=== PATIENT | male | born 1955 | race Hispanic/Latino ===

== ENCOUNTER 2019-01-24 11:09 | Observation (INO) | payer BC ==
[~2019-01-24] VITALS: Ht 177.8 cm; Wt 89.2 kg
--- OUTSIDE RECORDS SUMMARY | 2019-01-24 11:12 | XMS REPORT | Continuity of Care Document ---
Author Author [facility] Interface Address Unknown Phone Unavailable Problems Problem Status Onset Date Classification Date Reported Comments Source SQUAMOUS CELL CARCINOMA Active 08/12/2017 [facility] C44.9 - OTHER AND UNSP MALIGNANT NEOPL Active 08/10/2017 [facility] [place] Atrial fibrillation Active Problem 09/13/2017 [facility] CHF (<span ID="[id number]">Confirmed</span>) Active Problem 09/13/2017 [facility] Diabetes Resolved Problem 09/13/2017 [facility] Dilated cardiomyopathy Resolved Problem 09/13/2017 [facility] Hypertension Active Problem 09/13/2017 [facility] Lupus Active Problem 09/13/2017 [facility] 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 [facility] Neuropathy Active Problem 09/13/2017 [facility] Medications Medication Details Route Status Patient Instructions Ordering Provider Order Date Source tramadol hydrochloride 50 MG Oral Tablet 50 mg=1 tab, PO, Q4H, PRN Pain Score 4-6, X 7 day, # 50 tab, 0 Refill(s) Active 09/10/2017 [facility] Amoxicillin 875 MG / Clavulanate 125 MG Oral Tablet [Augmentin 875-mg] 1 tab, PO, Q12H, X 10 day, # 20 tab, 0 Refill(s) Active 09/10/2017 [facility] Spironolactone 25 mg, 1 tab, Route: PO, Drug form: TAB, Daily, Dosing Weight 90.909, kg, Start date: 09/10/17 9:00:00 BASKET PATCHER, Duration: 30 day, Stop date: 10/09/17 9:00:00 CSTNotes: (Same As: Aldactone) Inactive 09/10/2017 [facility] Lisinopril 10 mg, 1 tab, Route: PO, Drug form: TAB, Daily, Dosing Weight 90.909, kg, Start date: 09/10/17 9:00:00 BASKET PATCHER, Duration: 30 day, Stop date: 10/09/17 9:00:00 CSTNotes: (Same as: Prinivil, Zestril) Inactive 09/10/2017 [facility] Hydroxychloroquine Sulfate 200 MG Oral Tablet 200 mg, 1 tab, Route: PO, Drug form: TAB, Daily, Dosing Weight 90.909, kg, Start date: 09/10/17 9:00:00 BASKET PATCHER, Duration: 30 day, Stop date: 10/09/17 9:00:00 CSTNotes: (Same as: Plaquenil) Hydroxychloroquine sulfate 200 eh=549 mg hydroxychloroquine base. If treating malaria, verify dose as salt vs. base per CDC guideline Inactive 09/10/2017 [facility] Furosemide 40 mg, 1 tab, Route: PO, Drug form: TAB, Daily, Dosing Weight 90.909, kg, Start date: 09/10/17 9:00:00 BASKET PATCHER, Duration: 30 day, Stop date: 10/09/17 9:00:00 CSTNotes: (Same as: Lasix) May cause GI upset. Give with food or milk. Inactive 09/10/2017 [facility] Enoxaparin 40 mg, 0.4 mL, Route: SUB-Q, Drug form: INJ, [id number], Dosing Weight 90.909, kg, Start date: 09/10/17 3:05:00 BASKET PATCHER, Stop date: 10/09/17 3:05:00 CSTNotes: (Same as: Lovenox) Inactive 09/10/2017 [facility] Insulin Lispro 4 unit, 0.04 mL, Route: SUB-Q, Drug form: SOLN, Bedtime, Dosing Weight 90.909, kg, PRN Blood Glucose Results, Start date: 09/09/17 21:19:00 BASKET PATCHER, Duration: 30 day, Stop date: 10/09/17 21:18:00 CSTNotes: (Same as: Humalog ) Roll in palms of hands gently; Do not shake `vigorously. "Single Patient Use Only " WASTE: F/P - Black; E - Municipal Trash Bin Stable for 28 days at room temperature. Expires in days from Date No Longer Active 09/10/2017 [facility] Dextrose 50% Syringe 12.5 gm, 25 mL, Route: IVP, Drug Form: INJ, Dosing Weight 90.909, kg, PRN, PRN Blood Glucose Results, Start date: 09/09/17 21:19:00 BASKET PATCHER, Duration: 30 day, Stop date: 10/09/17 21:18:00 BASKET PATCHER No Longer Active 09/10/2017 [facility] Glucagon 1 mg, Route: IM, Drug form: PDR/INJ, PRN, Dosing Weight 90.909, kg, PRN Blood Glucose Results, Start date: 09/09/17 21:19:00 BASKET PATCHER, Duration: 30 day, Stop date: 10/09/17 21:18:00 BASKET PATCHER No Longer Active 09/10/2017 [facility] Amoxicillin 875 MG / Clavulanate 125 MG Oral Tablet [Augmentin 875-mg] 1 tab, Route: PO, Drug Form: TAB, Dosing Weight 90.909, kg, Q12H, Start date: 09/09/17 21:00:00 BASKET PATCHER, Duration: 5 day, Stop date: 09/14/17 9:00:00 CSTNotes: With food. (Same as: Augmentin 875) No Longer Active 09/10/2017 [facility] Metformin 500 mg, 1 tab, Route: PO, Drug form: TAB, BID, Dosing Weight 90.909, kg, Start date: 09/09/17 17:00:00 BASKET PATCHER, Duration: 30 day, Stop date: 10/09/17 9:00:00 CSTNotes: (Same as: Glucophage) Take with meal No Longer Active 09/09/2017 [facility] metoprolol tartrate 100 mg, 1 tab, Route: PO, Drug form: TAB, BID, Dosing Weight 90.909, kg, Start date: 09/09/17 17:00:00 BASKET PATCHER, Duration: 30 day, Stop date: 10/09/17 9:00:00 CSTNotes: (Same as: Lopressor) No Longer Active 09/09/2017 [facility] Insulin regular 6 unit, 0.06 mL, Route: SUB-Q, Drug form: SOLN, TID-Before Meals, Dosing Weight 90.909, kg, PRN Blood Glucose Results, Start date: 09/09/17 15:12:00 BASKET PATCHER, Duration: 30 day, Stop date: 10/09/17 15:11:0 0 CSTNotes: (Same as: Humulin R) Roll in palms of hands gently; Do not shake vigorously. "single patient use only" (Restricted to patients requiring a dose > 60 units) WASTE: F/P - Black; E - Municipal Trash Bin Stable for 28 days at room temperature Expires in days from Date No Longer Active 09/09/2017 [facility] Glucagon 1 mg, Route: IM, Drug form: PDR/INJ, PRN, Dosing Weight 90.909, kg, PRN Blood Glucose Results, Start date: 09/09/17 15:12:00 BASKET PATCHER, Duration: 30 day, Stop date: 10/09/17 15:11:00 BASKET PATCHER Inactive 09/09/2017 [facility] Dextrose 50% Syringe 25 gm, 50 mL, Route: IVP, Drug Form: INJ, Dosing Weight 90.909, kg, PRN, PRN Blood Glucose Results, Start date: 09/09/17 15:12:00 BASKET PATCHER, Duration: 30 day, Stop date: 10/09/17 15:11:00 BASKET PATCHER Inactive 09/09/2017 [facility] Acetaminophen 650 mg, 2 tab, Route: PO, Drug form: TAB, Q6H, Dosing Weight 90.909, kg, PRN Pain Score 1-3, Start date: 09/09/17 15:05:00 BASKET PATCHER, Duration: 30 day, Stop date: 10/09/17 15:04:00 CSTNotes: Do not exceed 4 gm/day. (Same as: Tylenol) No Longer Active 09/09/2017 [facility] tramadol hydrochloride 50 MG Oral Tablet 50 mg, 1 tab, Route: PO, Drug form: TAB, Q4H, Dosing Weight 90.909, kg, PRN Pain Score 4-6, Start date: 09/09/17 15:05:00 BASKET PATCHER, Duration: 30 day, Stop date: 10/09/17 15:04:00 CSTNotes: Not to exceed 400mg/day. (Same As: Ultram) No Longer Active 09/09/2017 [facility] famotidine (ANES) Route: IV, Drug form: INJ, ONCE, Stop date: 09/09/17 12:23:00 BASKET PATCHER Inactive 09/09/2017 [facility] phenylephrine (ANES) Route: IV, Drug form: INJ, ONCE, Stop date: 09/09/17 12:23:00 BASKET PATCHER Inactive 09/09/2017 [facility] dexamethasone (ANES) Route: IV, Drug form: INJ, ONCE, Stop date: 09/09/17 12:03:00 BASKET PATCHER Inactive 09/09/2017 [facility] propofol (ANES) Route: IV, Drug form: INJ, ONCE, Stop date: 09/09/17 11:58:00 BASKET PATCHER Inactive 09/09/2017 [facility] succinylcholine (ANES) Route: IV, Drug form: INJ, ONCE, Stop date: 09/09/17 11:58:00 BASKET PATCHER Inactive 09/09/2017 [facility] lidocaine ([facility]) Route: IV, Drug form: INJ, ONCE, Stop date: 09/09/17 11:58:00 BASKET PATCHER Inactive 09/09/2017 [facility] midazolam (ANES) Route: IV, Drug form: SOLN, ONCE, Stop date: 09/09/17 11:58:00 BASKET PATCHER Inactive 09/09/2017 [facility] acetaminophen ([facility]) Route: IV, Drug form: INJ, ONCE, Stop date: 09/09/17 11:58:00 BASKET PATCHER Inactive 09/09/2017 [facility] fentaNYL ([facility]) Route: IV, Drug form: INJ, ONCE, Stop date: 09/09/17 11:58:00 BASKET PATCHER Inactive 09/09/2017 [facility] Hydromorphone 0.5 mg, 0.25 mL, Route: IVP, Drug form: INJ, Q5Min, Dosing Weight 90.909, kg, PRN Pain Score 7-10, Start date: 09/09/17 11:54:00 BASKET PATCHER, Duration: 4 doses or times, Stop date: Limited # of timesNotes: S radha as Dilaudid Inactive 09/09/2017 [facility] Flumazenil 0.2 mg, 2 mL, Route: IVP, Drug form: INJ, PRN, Dosing Weight 90.909, kg, PRN Benzodiazepine Reversal, Initial dose, Start date: 09/09/17 11:54:00 BASKET PATCHER, Duration: 1 day, Stop date: 09/10/17 11:53:00 CS TNotes: (Same as: Romazicon) Inactive 09/09/2017 [facility] Naloxone 0.4 mg, 1 mL, Route: IVP, Drug form: INJ, Q2MIN, Dosing Weight 90.909, kg, PRN Narcotic Reversal, Start date: 09/09/17 11:54:00 BASKET PATCHER, Duration: 8 doses or times, Stop date: Limited # of timesNotes: Same as Narcan Inactive 09/09/2017 [facility] Meperidine 12.5 mg, 0.25 mL, Route: IVP, Drug form: INJ, Q30Min, Dosing Weight 90.909, kg, PRN Other -See Comment, For shivering, Start date: 09/09/17 11:54:00 BASKET PATCHER, Duration: 2 doses or times, Stop date: Limited # of timesNotes: (Same as: Demerol) "Use Precaution in Elderly, Seizure disorders, and Renal impairment" Inactive 09/09/2017 [facility] Promethazine 6.25 mg, 0.25 mL, Route: IVPB, Drug form: INJ, ONCE, Dosing Weight 90.909, kg, PRN Nausea & Vomiting, Start date: 09/09/17 11:54:00 CSTNotes: Do not give IV push. (Same as: Phenergan) Inactive 09/09/2017 [facility] Oxycodone 5 mg, 1 tab, Route: PO, Drug form: TAB, Q4H, Dosing Weight 90.909, kg, PRN Pain Score 4-6, Start date: 09/09/17 11:54:00 BASKET PATCHER, Duration: 30 day, Stop date: 10/09/17 11:53:00 CSTNotes: (Same as: Roxicodone) Inactive 09/09/2017 [facility] Hydralazine 10 mg, 0.5 mL, Route: IVP, Drug form: INJ, Q20Min, Dosing Weight 90.909, kg, PRN Elevated BP, Start date: 09/09/17 11:54:00 BASKET PATCHER, Duration: 2 doses or times, Stop date: Limited # of timesNotes: (Same as: Apresoline) Push over 5 minutes Inactive 09/09/2017 [facility] Labetalol 10 mg, 2 mL, Route: IVP, Drug form: INJ, Q5Min, Dosing Weight 90.909, kg, PRN Elevated BP, Start date: 09/09/17 11:54:00 BASKET PATCHER, Duration: 5 doses or times, Stop date: Limited # of times Inactive 09/09/2017 [facility] ceFAZolin (ANES) Route: IV, Drug form: INJ, ONCE, Stop date: 09/09/17 11:53:00 BASKET PATCHER Inactive 09/09/2017 [facility] Sodium Chloride 0.9% IV (ANES) 100 mL + SUFentanil (ANES) 100 microgram Route: IV, Drug form: INJ, Start date: 09/09/17 11:20:00 BASKET PATCHER, Stop date: 09/09/17 12:20:00 BASKET PATCHER Inactive 09/09/2017 [facility] Lactated Ringers Injection IV (ANES) 1000 mL Route: IV, Total Volume: 1,000, Start date: 09/09/17 10:41:00 BASKET PATCHER, Stop date: 09/09/17 11:41:00 BASKET PATCHER Inactive 09/09/2017 [facility] Hydroxychloroquine Sulfate 200 MG Oral Tablet [Plaquenil] 200 mg=1 tab, PO, Daily, 0 Refill(s) Active 09/09/2017 [facility] ceFAZolin + sterile water 20 mL 2 gm, Route: IV, PRE OP, Start date: 09/09/17 2:00:00 BASKET PATCHER, Duration: 1 day, Stop date: 09/10/17 1:59:00 BASKET PATCHER, ABX Indication: Surgical ProphylaxisNotes: (Same As: Ancef Kefzol) MEDICATION WASTE Product Size: 1000 mg Product Wasted: ___ mg Inactive 09/09/2017 [facility] Furosemide 40 mg, PO, Daily Active 09/06/2017 [facility] metoprolol tartrate 100 mg, PO, BID Active 09/06/2017 [facility] Metformin 500 mg, PO, BID Active 09/06/2017 [facility] Lisinopril 10 mg, PO, Daily Active 09/06/2017 [facility] Spironolactone 25 mg=2 tab, PO, Daily Active 09/06/2017 [facility] Xarelto 20 mg, PO, QPM Active 09/06/2017 [facility] Allergies, Adverse Reactions, Alerts Substance Category Reaction Severity Reaction type Status Date Reported Comments Source Immunizations Immunization Date Given Site Status Last Updated Comments Source Results Order Name Results Value Reference Range Date Interpretation Comments Source CHEM PANEL eGFR 92 mL/min/1.73m2 09/10/2017 Result Comment: The eGFR is calculated using the CKD-EPI formula. In most young, healthy individuals the eGFR will be >90 mL/min/1.73m2. The eGFR declines with age. An eGFR of 60-89 may be normal in some populations, particularly the elderly, for whom the CKD-EPI formula has not been extensively validated. Use of the eGFR is not recommended in the following populations: Individuals with unstable creatinine concentrations, including patients and those with serious co-morbid conditions. Patients with extremes in muscle mass or diet. The data above are obtained from the National Kidney Disease Education Program (NKDEP) which additionally recommends that when the eGFR is used in patients with extremes of body mass index for purposes of drug dosing, the eGFR should be multiplied by the estimated BMI. [facility] CHEM PANEL Calcium Lvl 8.6 mg/dL 8.5 - 10.5 09/10/2017 [facility] CHEM PANEL CO2 22 meq/L 24 - 32 09/10/2017 [facility] CHEM PANEL Chloride Lvl 100 meq/L 95 - 109 09/10/2017 [facility] CHEM PANEL Potassium Lvl 4.4 meq/L 3.5 - 5.1 09/10/2017 [facility] CHEM PANEL Sodium Lvl 132 meq/L 135 - 145 09/10/2017 [facility] CHEM PANEL BUN 18 mg/dL 7 - 22 09/10/2017 [facility] CHEM PANEL Creatinine Lvl 0.88 mg/dL 0.50 - 1.40 09/10/2017 [facility] CHEM PANEL Glucose Lvl 270 mg/dL 70 - 99 09/10/2017 [facility] CHEM PANEL AGAP 14.4 meq/L 10.0 - 20.0 09/10/2017 [facility] HEMATOLOGY WBC 7.1 K/CMM 3.7 - 10.4 09/10/2017 [facility] HEMATOLOGY Platelet 120 K/CMM 133 - 450 09/10/2017 [facility] HEMATOLOGY MPV 8.2 fL 7.4 - 10.4 09/10/2017 [facility] HEMATOLOGY MCHC 34.8 g/dL 32.0 - 36.0 09/10/2017 [facility] HEMATOLOGY RDW 12.4 % 11.5 - 14.5 09/10/2017 [facility] HEMATOLOGY Hct 41.1 % 42.0 - 54.0 09/10/2017 [facility] HEMATOLOGY Hgb 14.3 g/dL 14.0 - 18.0 09/10/2017 [facility] HEMATOLOGY RBC 4.45 M/CMM 4.70 - 6.10 09/10/2017 [facility] HEMATOLOGY MCV 92.3 fL 80.0 - 94.0 09/10/2017 [facility] HEMATOLOGY MCH 32.1 pg 27.0 - 31.0 09/10/2017 [facility] HEMATOLOGY Segs 80.4 % 45.0 - 75.0 09/10/2017 [facility] HEMATOLOGY Monocytes # 0.5 K/CMM 0.0 - 0.8 09/10/2017 [facility] HEMATOLOGY Lymphocytes # 0.8 K/CMM 1.0 - 5.5 09/10/2017 [facility] HEMATOLOGY Segs-Bands # 5.7 K/CMM 1.5 - 8.1 09/10/2017 [facility] HEMATOLOGY Basophils 0.5 % 0.0 - 1.0 09/10/2017 [facility] HEMATOLOGY Eosinophils 0.3 % 0.0 - 4.0 09/10/2017 [facility] HEMATOLOGY Lymphocytes 11.3 % 20.0 - 40.0 09/10/2017 [facility] HEMATOLOGY Monocytes 7.5 % 2.0 - 12.0 09/10/2017 [facility] BLOOD BANK RESULTS Antibody Scrn Negative (09/09/17 10:00 AM) 09/09/2017 [facility] BLOOD BANK RESULTS ABO/Rh O POS 09/09/2017 [facility] ELECTROLYTES AGAP 12.8 meq/L 10.0 - 20.0 09/06/2017 [facility] ELECTROLYTES eGFR 99 mL/min/1.73m2 09/06/2017 Result Comment: The eGFR is calculated using the CKD-EPI formula. In most young, healthy individuals the eGFR will be >90 mL/min/1.73m2. The eGFR declines with age. An eGFR of 60-89 may be normal in some populations, particularly the elderly, for whom the CKD-EPI formula has not been extensively validated. Use of the eGFR is not recommended in the following populations: Individuals with unstable creatinine concentrations, including patients and those with serious co-morbid conditions. Patients with extremes in muscle mass or diet. The data above are obtained from the National Kidney Disease Education Program (NKDEP) which additionally recommends that when the eGFR is used in patients with extremes of body mass index for purposes of drug dosing, the eGFR should be multiplied by the estimated BMI. [facility] ELECTROLYTES Glucose Lvl 158 mg/dL 70 - 99 09/06/2017 [facility] ELECTROLYTES BUN 20 mg/dL 7 - 22 09/06/2017 [facility] ELECTROLYTES Sodium Lvl 134 meq/L 135 - 145 09/06/2017 [facility] ELECTROLYTES Creatinine Lvl 0.73 mg/dL 0.50 - 1.40 09/06/2017 [facility] ELECTROLYTES Potassium Lvl 4.8 meq/L 3.5 - 5.1 09/06/2017 [facility] ELECTROLYTES Calcium Lvl 10.7 mg/dL 8.5 - 10.5 09/06/2017 [facility] ELECTROLYTES Chloride Lvl 96 meq/L 95 - 109 09/06/2017 [facility] ELECTROLYTES CO2 30 meq/L 24 - 32 09/06/2017 [facility] HEMATOLOGY Basophils # 0.1 K/CMM 0.0 - 0.2 09/06/2017 [facility] HEMATOLOGY Segs 69.3 % 45.0 - 75.0 09/06/2017 [facility] HEMATOLOGY Lymphocytes 20.7 % 20.0 - 40.0 09/06/2017 [facility] HEMATOLOGY Eosinophils 0.9 % 0.0 - 4.0 09/06/2017 [facility] HEMATOLOGY Monocytes 8.0 % 2.0 - 12.0 09/06/2017 [facility] HEMATOLOGY Basophils 1.1 % 0.0 - 1.0 09/06/2017 [facility] HEMATOLOGY Lymphocytes # 1.1 K/CMM 1.0 - 5.5 09/06/2017 [facility] HEMATOLOGY Segs-Bands # 3.8 K/CMM 1.5 - 8.1 09/06/2017 [facility] HEMATOLOGY Monocytes # 0.4 K/CMM 0.0 - 0.8 09/06/2017 [facility] HEMATOLOGY Hgb 15.3 g/dL 14.0 - 18.0 09/06/2017 [facility] HEMATOLOGY Hct 44.3 % 42.0 - 54.0 09/06/2017 [facility] HEMATOLOGY MCV 92.2 fL 80.0 - 94.0 09/06/2017 [facility] HEMATOLOGY MCH 31.9 pg 27.0 - 31.0 09/06/2017 [facility] HEMATOLOGY MCHC 34.7 g/dL 32.0 - 36.0 09/06/2017 [facility] HEMATOLOGY RDW 12.3 % 11.5 - 14.5 09/06/2017 [facility] HEMATOLOGY MPV 9.1 fL 7.4 - 10.4 09/06/2017 [facility] HEMATOLOGY Platelet 142 K/CMM 133 - 450 09/06/2017 [facility] HEMATOLOGY RBC 4.80 M/CMM 4.70 - 6.10 09/06/2017 [facility] HEMATOLOGY WBC 5.5 K/CMM 3.7 - 10.4 09/06/2017 [facility] SPECIAL CHEMISTRY Hgb A1C 9.2 % <=5.6 % 09/06/2017 [facility] Neck soft tissue w/wo contrast CT Neck soft tissue w/wo contrast CT Neck soft tissue w/wo contrast CT 08/10/2017 9:51 AM BASKET PATCHER . CLINICAL INDICATION: - C44.90 Unspecified malignant neoplasm of skin, unspecified; skin cancer of ear; ; TECHNIQUE: Thin section axial images are obtained from aortic arch to the posterior cranial fossa. Axial, sagittal, coronal images are interpreted. This exam was performed according to our departmental dose-optimization protocol, which includes automated exposure control, adjustment of the mA and/or kV according to patient size and/or use of iterative reconstruction technique. Contrast : 100 mL IV contrast was given. DLP- 1276 mGy-cm COMPARISON: No prior. FINDINGS: Aerodigestive tract: No mucosal thickening, abnormal enhancement, or asymmetry. The submucosal fat planes are maintained. Lymph nodes: No lymphadenopathy. Salivary glands: See below. Thyroid: Within normal limits. Vascular structures: Significant atherosclerotic calcifications are seen in the bilateral carotid arteries. Paranasal sinuses: Clear. The mastoids are clear. Cranial posterior fossa: Within normal limits. Superficial tissues: Diffuse cutaneous and subcutaneous thickening is seen at the pinna and anterior periauricular region. Ill-defined margin with the superficial lobe of the right parotid gland is present. Regional skeleton: Osteoporosis. Severe multilevel cervical spine degenerative changes. C2-C3 moderate facet arthrosis and grade 1 degenerative anterolisthesis. Lung apices: Within normal limits. IMPRESSION: 1. Diffuse right auricular and periauricular soft tissues compatible with neoplasm and/or recent radiotherapy. Involvement of the right parotid gland superficial lobe may be present. 2. No neck adenopathy. 08/10/2017 - - Read by: Gareth Patino MD Dictated Date/time: 08/10/17 16:28 Electronically Signed by: Gareth Patino MD 08/10/17 16:38 FINAL REPORT [facility] Vital Signs Vital Sign Value Date Comments Source Respitory Rate 18 09/10/2017 [facility] Systolic (mm Hg) 112 09/10/2017 [facility] Diastolic (mm Hg) 73 09/10/2017 [facility] Temperature Oral (F) 97.6 F 09/10/2017 [facility] Heart Rate 70 09/10/2017 [facility] Temperature Oral (F) 96.6 F 09/10/2017 [facility] Systolic (mm Hg) 109 09/10/2017 [facility] Diastolic (mm Hg) 69 09/10/2017 [facility] Respitory Rate 18 09/10/2017 [facility] Heart Rate 70 09/10/2017 [facility] Temperature Oral (F) 96.5 F 09/10/2017 [facility] Heart Rate 74 09/10/2017 [facility] Systolic (mm Hg) 108 09/10/2017 [facility] Diastolic (mm Hg) 75 09/10/2017 [facility] Respitory Rate 18 09/10/2017 [facility] Height 177.8 cm 09/09/2017 [facility] Weight 90.909 09/09/2017 [facility] BMI Calculated 28.76 09/09/2017 [facility] BMI Calculated 28.47 09/06/2017 [facility] Height 177.8 cm 09/06/2017 [facility] Weight 90 09/06/2017 [facility] Encounters Location Location Details Encounter Type Encounter Number Reason For Visit Attending Provider ADM Date DC Date Status Source [facility] [place] [facility] [id number] Woodrow Adkins 08/10/2017 08/11/2017 [facility] Bedded Outpatient [id number] Woodrow Adkins 09/09/2017 09/10/2017 [facility] Procedures Procedure Code Date Perfomer Comments Source Electrical cardioversion<sup>1</sup> [id number] x2 [facility] Implantation of cardiac pacemaker [id number] [facility]
--- OUTSIDE RECORDS SUMMARY | 2019-01-24 11:12 | XMS REPORT | Clinical Summary ---
Author Author JANETTE [facility] Address Unknown Phone Unavailable Care Team Providers Care Dental Office Assistant Name Role Phone Randy Lund PCP Allergies No Known Allergies Medications End Date Status Medication Sig Dispensed Refills Start Date Active spironolactone Take 25 mg by 0 (ALDACTONE) 25 MG tablet mouth daily. Active rivaroxaban (XARELTO) 20 Take 20 mg by 0 mg Tab tablet mouth daily with dinner. Active aspirin 81 MG chewable Take 81 mg by 0 tablet mouth daily. Active sacubitril-valsartan Take 1 tablet 0 (ENTRESTO) 49-51 mg Tab by mouth 2 (two) times daily. Active metFORMIN (GLUCOPHAGE) Take 500 mg 0 500 MG tablet by mouth 2 (two) times daily with breakfast and dinner. Active hydroxychloroquine Take 200 mg 0 (PLAQUENIL) 200 mg tablet by mouth 2 9 (two) times daily . Active metoprolol (TOPROL-XL) Take 100 mg 0 100 MG 24 hr tablet by mouth 2 9 (two) times daily . Active furosemide (LASIX) 40 MG Take 40 mg by 0 tablet mouth 2 (two) times daily. Active calcium carbonate-vitamin Take 1 tablet 0 D3 (OSCAL-D) 500 by mouth mg(1,250mg) -200 unit per daily. tablet Active magnesium oxide 400 mg Take 400 mg 0 magnesium Tab by mouth daily . Active sacubitril-valsartan Take 1 tablet 0 (ENTRESTO) 97-103 mg Tab by mouth 2 (two) times daily. 12/27/2018 Discontinued furosemide (LASIX) 40 MG Take 40 mg by 0 tablet mouth 2 (two) times daily. 12/27/2018 Discontinued magnesium oxide (MAG-OX) Take 400 mg 0 400 mg (241.3 mg by mouth magnesium) tablet daily. 12/27/2018 Discontinued calcium-vitamin D 250-100 Take 1 tablet 0 mg-unit per tablet by mouth daily. 12/27/2018 Discontinued cyanocobalamin 2000 MCG Take 2,000 0 tablet mcg by mouth daily. Active Problems Problem Noted Date Chronic hepatitis C without hepatic coma 12/27/2018 Last Assessment & Plan: Diagnosed based on labs, positive HCV antibody. He has risk factors for HCV infection. We will check HCV RNA for confirmation. If positive, he will need therapy. No evidence of decompensated cirrhosis clinically. I have advised him to be abstinent from alcohol. Abnormal LFTs 12/27/2018 Last Assessment & Plan: Hepatocellular pattern, mildly elevated, may be related to HCV. However he has risk factors for metabolic syndrome with fatty liver, and significant history of drinking. Screening for endocrine, metabolic and immunity disorder 12/27/2018 Last Assessment & Plan: Serological tests will be completed to determine the presence of immunity to hepatitis A and B. If found susceptible she will be referred to her primary care provider to consider the administration of the appropriate vaccines. Alcoholic cardiomyopathy 12/27/2018 Encounters Care Team Description Date Type Specialty Collette Steen MD 01/04/2019 Orders Only Hepatology Collette Steen MD Chronic hepatitis C without hepatic coma (HCC); Abnormal LFTs; Screening for endocrine, metabolic and immunity disorder; Alcoholic cardiomyopathy (HCC) 12/29/2018 Hospital Radiology Encounter Randy Lund Harris 12/29/2018 Outside Orders Maine Shaw 12/28/2018 Follow-Up Transplant Collette Steen MD Chronic hepatitis C without hepatic coma (HCC); Abnormal LFTs; Screening for endocrine, metabolic and immunity disorder; Alcoholic cardiomyopathy (HCC) 12/27/2018 Office Visit Hepatology Shaan Cassidy 12/21/2018 Abstract Transplant Max Oropeza MD Congestive heart failure, unspecified HF chronicity, unspecified heart failure type (HCC) (Primary Dx) 12/14/2018 Orders Only Lab Shaan Cassidy 12/12/2018 Abstract Transplant Cindy Schwartz RN Results 12/12/2018 Telephone Transplant Cindy Schwartz RN Pre-transplant evaluation for heart transplant (Primary Dx) 12/12/2018 Orders Only Transplant Cindy Schwartz RN 12/12/2018 Abstract Transplant KhanhShaan anderson M 12/05/2018 Abstract Transplant KhanhShaan M 11/29/2018 Abstract Transplant Wes Ovalle MD Allison, Amy, RN Pre-transplant evaluation for heart transplant (Primary Dx); Encounter for pre-transplant evaluation for heart transplant 10/24/2018 Orders Only Transplant Cindy Schwartz RN Encounter for pre-transplant evaluation for heart transplant (Primary Dx) 10/24/2018 Orders Only Transplant Cindy Schwartz RN Encounter for pre-transplant evaluation for heart transplant (Primary Dx) 10/24/2018 Orders Only Transplant Cindy Schwartz RN 10/16/2018 Telephone Transplant Max Oropeza MD Awaiting organ transplant status; Dilated cardiomyopathy (HCC) 10/05/2018 Hospital Cardiology Encounter Max Oropeza MD Awaiting organ transplant status; Dilated cardiomyopathy (HCC) 10/05/2018 Hospital Cardiology Encounter Max Oropeza MD Awaiting organ transplant status; Dilated cardiomyopathy (HCC) 10/05/2018 Hospital Respiratory Therapy Encounter Max rOopeza MD Awaiting organ transplant status; Dilated cardiomyopathy (HCC) 10/05/2018 Hospital Respiratory Therapy Encounter Max Oropeza MD 10/05/2018 Hospital Encounter Max Oropeza MD Awaiting organ transplant status; Dilated cardiomyopathy (HCC) 10/05/2018 Hospital Radiology Encounter Max Oropeza MD Awaiting organ transplant status; Dilated cardiomyopathy (HCC) 10/05/2018 Hospital Radiology Encounter Max Oropeza MD Awaiting organ transplant status; Dilated cardiomyopathy (HCC) 10/05/2018 Hospital Radiology Encounter Kourtney Fontaine 09/25/2018 Documentation Cardiology Max Oropeza MD Awaiting organ transplant status; Dilated cardiomyopathy (HCC) 09/21/2018 Hospital Encounter Max Oropeza MD Awaiting organ transplant status; Dilated cardiomyopathy (HCC) 09/21/2018 Hospital Radiology Encounter Max Oropeza MD Awaiting organ transplant status; Dilated cardiomyopathy (HCC) 09/21/2018 Hospital Radiology Encounter Max Oropeza MD Manson, Melissa J, [facility] Awaiting organ transplant status; Dilated cardiomyopathy (HCC) 09/21/2018 Evaluation Cardiology Shaan Cassidy 09/21/2018 Abstract Transplant Max Oropeza MD 09/21/2018 Outside Orders Cindy Schwartz RN 09/21/2018 Abstract Transplant Kourtney Joseph LCSW 09/21/2018 Social Work Transplant Cindy Schwartz, RN 09/07/2018 Abstract Transplant Cindy Schwartz RN Dilated cardiomyopathy (HCC) (Primary Dx); Awaiting organ transplant status 09/07/2018 Orders Only Transplant Cindy Schwartz RN Heart Transplant Pre-evaluation 09/07/2018 Telephone Transplant Adrienne Yusuf 09/05/2018 Documentation Transplant Adrienne Yusuf 07/27/2018 Documentation Transplant Adrienne Yusuf Insurance (Not a BDCT ) 07/27/2018 Telephone Transplant Bobby Jorgensen 03/29/2018 Abstract Transplant Usama Ramey 03/27/2018 Abstract Transplant Usama Ramey 03/27/2018 Abstract Transplant Max Oropeza MD Left ventricular failure (HCC) 03/21/2018 Hospital Cardiology Encounter Max Oropeza MD Left ventricular failure (HCC) 03/21/2018 Hospital Cardiology Encounter Max Oropeza MD Left ventricular failure (HCC) (Primary Dx) 03/17/2018 Outside Orders Central Scheduling after 01/23/2018 Family History Medical History Relation Name Comments Diabetes Brother Diabetes Father Diabetes Mother Relation Name Status Comments Brother Father Mother Social History Date Tobacco Use Types Packs/Day Years Used Former Smoker Smokeless Tobacco: Never Used Alcohol Use Drinks/Week oz/Week Comments No Alcohol Habits Answer Date Recorded How often do you have a drink containing alcohol? Never 12/27/2018 How many drinks containing alcohol do you have on Not asked a typical day when you are drinking? How often do you have six or more drinks on one Not asked occasion? Sex Assigned at Date Recorded Not on file Industry Job Start Date Occupation Not on file Not on file Not on file Travel End Travel History Travel Start No recent travel history available. Last Filed Vital Signs Time Taken Vital Sign Reading 12/28/2018 1:33 PM CDT Blood Pressure 91/62 12/28/2018 1:33 PM CDT Pulse 72 12/28/2018 1:33 PM CDT Temperature 36.7 C (98.1 F) 12/28/2018 1:33 PM CDT Respiratory Rate 18 12/28/2018 1:33 PM CDT Oxygen Saturation 97% - Inhaled Oxygen - Concentration 12/28/2018 1:33 PM CDT Weight 93.7 kg (206 lb 9.6 oz) 12/28/2018 1:33 PM CDT Height 177.8 cm (5' 10") 12/28/2018 1:33 PM CDT Body Mass Index 29.64 Plan of Treatment Care Team Description Date Type Specialty Collette Steen MD [address] [facility] [address] [place] [address] 02/22/2019 Office Visit Hepatology Procedures Comments Procedure Name Priority Date/Time Associated Diagnosis HEP B SURFACE AB Routine 01/04/2019 10:48 AM CDT HEPATITIS B CORE Routine 01/04/2019 ANTIBODY, TOTAL 10:48 AM CDT HEPATITIS B SURFACE Routine 01/04/2019 ANTIGEN 10:48 AM CDT HEPATITIS A ANTIBODY, Routine 12/29/2018 Abnormal LFTs TOTAL 10:50 AM CDT Screening for endocrine, metabolic and immunity disorder HEREDITARY Routine 12/29/2018 Chronic hepatitis C HEMOCHROMATOSIS DNA 10:49 AM CDT without hepatic coma (HCC) Abnormal LFTs Screening for endocrine, metabolic and immunity disorder Alcoholic cardiomyopathy (HCC) HEPATITIS C PCR, Routine 12/29/2018 Chronic hepatitis C QUANTITATIVE 10:49 AM CDT without hepatic coma (HCC) Abnormal LFTs Screening for endocrine, metabolic and immunity disorder Alcoholic cardiomyopathy (HCC) HEPATITIS C GENOTYPE Routine 12/29/2018 Chronic hepatitis C 10:49 AM CDT without hepatic coma (HCC) Abnormal LFTs Screening for endocrine, metabolic and immunity disorder Alcoholic cardiomyopathy (HCC) HEPATITIS B PCR, Routine 12/29/2018 Chronic hepatitis C QUANTITATIVE 10:49 AM CDT without hepatic coma (HCC) Abnormal LFTs Screening for endocrine, metabolic and immunity disorder Alcoholic cardiomyopathy (HCC) ALPHA FETOPROTEIN (AFP), Routine 12/29/2018 Chronic hepatitis C TUMOR MARKER 10:49 AM CDT without hepatic coma (HCC) Abnormal LFTs Screening for endocrine, metabolic and immunity disorder Alcoholic cardiomyopathy (HCC) PROTHROMBIN TIME/INR Routine 12/29/2018 Chronic hepatitis C 10:49 AM CDT without hepatic coma (HCC) Abnormal LFTs Screening for endocrine, metabolic and immunity disorder Alcoholic cardiomyopathy (HCC) CBC W/PLT COUNT & AUTO Routine 12/29/2018 Chronic hepatitis C DIFFERENTIAL 10:49 AM CDT without hepatic coma (HCC) Abnormal LFTs Screening for endocrine, metabolic and immunity disorder Alcoholic cardiomyopathy (HCC) HEPATIC FUNCTION PANEL Routine 12/29/2018 Chronic hepatitis C 10:49 AM CDT without hepatic coma (HCC) Abnormal LFTs Screening for endocrine, metabolic and immunity disorder Alcoholic cardiomyopathy (HCC) BASIC METABOLIC PANEL (7) Routine 12/29/2018 Chronic hepatitis C 10:49 AM CDT without hepatic coma (HCC) Abnormal LFTs Screening for endocrine, metabolic and immunity disorder Alcoholic cardiomyopathy (HCC) US ABDOMINAL WITH DOPPLER Routine 12/29/2018 Chronic hepatitis C 8:38 AM CDT without hepatic coma (HCC) Abnormal LFTs Screening for endocrine, metabolic and immunity disorder Alcoholic cardiomyopathy (HCC) REPORT OF PROCEDURE - 12/20/2018 ENDOSCOPY SCAN 3:41 PM CDT MISCELLANEOUS LAB ORDER Routine 12/14/2018 Congestive heart failure, 2:07 PM CDT unspecified HF chronicity, unspecified heart failure type (HCC) CREATININE Routine 10/26/2018 Pre-transplant evaluation 11:14 AM AUDIOMETRIST for heart transplant CREATININE CLEARANCE Routine 10/26/2018 Pre-transplant evaluation 10:59 AM AUDIOMETRIST for heart transplant DRUG SCREEN, URINE, Routine 10/24/2018 Pre-transplant evaluation TRANSPLANT 10:10 AM AUDIOMETRIST for heart transplant PULMONARY FUNCTION - SCAN 10/12/2018 2:50 PM AUDIOMETRIST CAROTID DOPPLER BILATERAL Routine 10/05/2018 Awaiting organ transplant 10:39 AM AUDIOMETRIST status Dilated cardiomyopathy (HCC) ARTERIAL DOPPLER LEGS Routine 10/05/2018 Awaiting organ transplant BILATERAL 10:39 AM AUDIOMETRIST status Dilated cardiomyopathy (HCC) CT CHEST WITHOUT IV Routine 10/05/2018 Awaiting organ transplant CONTRAST 8:44 AM AUDIOMETRIST status Dilated cardiomyopathy (HCC) CT BRAIN WITHOUT IV Routine 10/05/2018 Awaiting organ transplant CONTRAST 8:44 AM AUDIOMETRIST status Dilated cardiomyopathy (HCC) CT ABDOMEN WITHOUT IV Routine 10/05/2018 Awaiting organ transplant CONTRAST 8:44 AM AUDIOMETRIST status Dilated cardiomyopathy (HCC) XR DXA BONE DENSITY STUDY Routine 10/05/2018 7:48 AM AUDIOMETRIST TRANSFUSION SERVICE 09/22/2018 REPORT - SCAN 6:05 PM AUDIOMETRIST US RENAL COMPLETE Routine 09/21/2018 Awaiting organ transplant 2:29 PM AUDIOMETRIST status Dilated cardiomyopathy (HCC) XR CHEST 2 VIEWS Routine 09/21/2018 Awaiting organ transplant 1:21 PM AUDIOMETRIST status Dilated cardiomyopathy (HCC) VARICELLA ZOSTER Routine 09/21/2018 Awaiting organ transplant ANTIBODY, IGG 11:31 AM AUDIOMETRIST status Dilated cardiomyopathy (HCC) T SPOT TB Routine 09/21/2018 Awaiting organ transplant 10:37 AM AUDIOMETRIST status Dilated cardiomyopathy (HCC) AB SPECIFICITY CLASS II Routine 09/21/2018 Awaiting organ transplant 10:01 AM AUDIOMETRIST status Dilated cardiomyopathy (HCC) AB SPECIFICITY CLASS I Routine 09/21/2018 Awaiting organ transplant 10:01 AM AUDIOMETRIST status Dilated cardiomyopathy (HCC) PROTEIN ELECTROPHORESIS, AP Routine 09/21/2018 Awaiting organ transplant SERUM 10:01 AM AUDIOMETRIST status FLOW PRA CLASS II WITH Routine 09/21/2018 Awaiting organ transplant REFLEX TO ANTIBODY 10:01 AM AUDIOMETRIST status SPECIFICITY Dilated cardiomyopathy (HCC) FLOW PRA CLASS I WITH Routine 09/21/2018 Awaiting organ transplant REFLEX TO ANTIBODY 10:01 AM AUDIOMETRIST status SPECIFICITY Dilated cardiomyopathy (HCC) TOXOPLASMA GONDII Routine 09/21/2018 Awaiting organ transplant ANTIBODY, IGM 10:01 AM AUDIOMETRIST status Dilated cardiomyopathy (HCC) TOXOPLASMA GONDII Routine 09/21/2018 Awaiting organ transplant ANTIBODY, IGG 10:01 AM AUDIOMETRIST status Dilated cardiomyopathy (HCC) RPR Routine 09/21/2018 Awaiting organ transplant 10:01 AM AUDIOMETRIST status Dilated cardiomyopathy (HCC) HIV-1 ANTIGEN WITH Routine 09/21/2018 Awaiting organ transplant HIV-1/2 ANTIBODY 10:01 AM AUDIOMETRIST status Dilated cardiomyopathy (HCC) HERPES VIRUS ANTIBODY, Routine 09/21/2018 Awaiting organ transplant IGM 10:01 AM AUDIOMETRIST status Dilated cardiomyopathy (HCC) HERPES VIRUS ANTIBODY, Routine 09/21/2018 Awaiting organ transplant IGG 10:01 AM AUDIOMETRIST status Dilated cardiomyopathy (HCC) EBV ANTIBODY, IGM Routine 09/21/2018 Awaiting organ transplant 10:01 AM AUDIOMETRIST status Dilated cardiomyopathy (HCC) EBV ANTIBODY, IGG Routine 09/21/2018 Awaiting organ transplant 10:01 AM AUDIOMETRIST status Dilated cardiomyopathy (HCC) CYTOMEGALOVIRUS ANTIBODY, Routine 09/21/2018 Awaiting organ transplant IGM 10:01 AM AUDIOMETRIST status Dilated cardiomyopathy (HCC) CYTOMEGALOVIRUS ANTIBODY, Routine 09/21/2018 Awaiting organ transplant IGG 10:01 AM AUDIOMETRIST status Dilated cardiomyopathy (HCC) ANTI-NUCLEAR ANTIBODY Routine 09/21/2018 Awaiting organ transplant (FRANC) 10:01 AM AUDIOMETRIST status Dilated cardiomyopathy (HCC) VITAMIN D, 25-HYDROXY Routine 09/21/2018 Awaiting organ transplant 10:01 AM AUDIOMETRIST status Dilated cardiomyopathy (HCC) URIC ACID Routine 09/21/2018 Awaiting organ transplant 10:01 AM AUDIOMETRIST status Dilated cardiomyopathy (HCC) TSH Routine 09/21/2018 Awaiting organ transplant 10:01 AM AUDIOMETRIST status Dilated cardiomyopathy (HCC) TRANSFERRIN Routine 09/21/2018 Awaiting organ transplant 10:01 AM AUDIOMETRIST status Dilated cardiomyopathy (HCC) T4, FREE Routine 09/21/2018 Awaiting organ transplant 10:01 AM AUDIOMETRIST status Dilated cardiomyopathy (HCC) PSA Routine 09/21/2018 Awaiting organ transplant 10:01 AM AUDIOMETRIST status Dilated cardiomyopathy (HCC) PREALBUMIN Routine 09/21/2018 Awaiting organ transplant 10:01 AM AUDIOMETRIST status Dilated cardiomyopathy (HCC) PHOSPHORUS Routine 09/21/2018 Awaiting organ transplant 10:01 AM AUDIOMETRIST status Dilated cardiomyopathy (HCC) MAGNESIUM Routine 09/21/2018 Awaiting organ transplant 10:01 AM AUDIOMETRIST status Dilated cardiomyopathy (HCC) LIPID PANEL Routine 09/21/2018 Awaiting organ transplant 10:01 AM AUDIOMETRIST status Dilated cardiomyopathy (HCC) LIPASE Routine 09/21/2018 Awaiting organ transplant 10:01 AM AUDIOMETRIST status Dilated cardiomyopathy (HCC) LACTATE DEHYDROGENASE Routine 09/21/2018 Awaiting organ transplant (LDH) 10:01 AM AUDIOMETRIST status Dilated cardiomyopathy (HCC) IRON, SERUM Routine 09/21/2018 Awaiting organ transplant 10:01 AM AUDIOMETRIST status Dilated cardiomyopathy (HCC) HEPATITIS C ANTIBODY Routine 09/21/2018 Awaiting organ transplant 10:01 AM AUDIOMETRIST status Dilated cardiomyopathy (HCC) HEPATITIS B SURFACE Routine 09/21/2018 Awaiting organ transplant ANTIGEN 10:01 AM AUDIOMETRIST status Dilated cardiomyopathy (HCC) HEPATITIS B E ANTIGEN Routine 09/21/2018 Awaiting organ transplant 10:01 AM AUDIOMETRIST status Dilated cardiomyopathy (HCC) HEPATITIS B CORE Routine 09/21/2018 Awaiting organ transplant ANTIBODY, TOTAL 10:01 AM AUDIOMETRIST status Dilated cardiomyopathy (HCC) HEPATITIS B CORE Routine 09/21/2018 Awaiting organ transplant ANTIBODY, IGM 10:01 AM AUDIOMETRIST status Dilated cardiomyopathy (HCC) HEPATITIS A ANTIBODY, IGM Routine 09/21/2018 Awaiting organ transplant 10:01 AM AUDIOMETRIST status Dilated cardiomyopathy (HCC) HEPATITIS A ANTIBODY, IGG Routine 09/21/2018 Awaiting organ transplant 10:01 AM AUDIOMETRIST status Dilated cardiomyopathy (HCC) HEPATIC FUNCTION PANEL Routine 09/21/2018 Awaiting organ transplant 10:01 AM AUDIOMETRIST status Dilated cardiomyopathy (HCC) HEMOGLOBIN A1C Routine 09/21/2018 Awaiting organ transplant 10:01 AM AUDIOMETRIST status Dilated cardiomyopathy (HCC) GAMMA GLUTAMYL Routine 09/21/2018 Awaiting organ transplant TRANSFERASE (GGT) 10:01 AM AUDIOMETRIST status Dilated cardiomyopathy (HCC) FERRITIN Routine 09/21/2018 Awaiting organ transplant 10:01 AM AUDIOMETRIST status Dilated cardiomyopathy (HCC) B-TYPE NATRIURETIC FACTOR Routine 09/21/2018 Awaiting organ transplant (BNP) 10:01 AM AUDIOMETRIST status Dilated cardiomyopathy (HCC) BASIC METABOLIC PANEL (7) Routine 09/21/2018 Awaiting organ transplant 10:01 AM AUDIOMETRIST status Dilated cardiomyopathy (HCC) ECG 12-LEAD Routine 09/21/2018 9:52 AM AUDIOMETRIST Procedure Note - Interface, External Ris In - 09/21/2018 8:51 AM AUDIOMETRIST Ventricula r Rate 70 BPM Atrial Rate 69 BPM QRS Duration 172 ms Q-T Interval 504 ms QTC Calculatio n(Bazett) 544 ms R Canby -31 degrees T [place]by 102 degrees Ventricul ar-paced rhythm Biventricu lar pacemaker detected Abnormal ECG No previous ECGs available ECG 12-LEAD Routine 09/21/2018 Awaiting organ transplant 9:52 AM AUDIOMETRIST status Dilated cardiomyopathy (HCC) PT/APTT Routine 09/21/2018 Awaiting organ transplant 9:02 AM AUDIOMETRIST status Dilated cardiomyopathy (HCC) URINALYSIS W/ MICROSCOPIC Routine 09/21/2018 Awaiting organ transplant 9:01 AM AUDIOMETRIST status Dilated cardiomyopathy (HCC) HLA TYPING CII Routine 09/21/2018 Awaiting organ transplant 8:20 AM AUDIOMETRIST status Dilated cardiomyopathy (HCC) HLA TYPING CI Routine 09/21/2018 Awaiting organ transplant 8:20 AM AUDIOMETRIST status Dilated cardiomyopathy (HCC) CBC W/PLT COUNT & AUTO Routine 09/21/2018 Awaiting organ transplant DIFFERENTIAL 8:19 AM AUDIOMETRIST status Dilated cardiomyopathy (HCC) DIRECT AHG (DEEPA)/DIRECT Routine 09/21/2018 Awaiting organ transplant CLAU 8:19 AM AUDIOMETRIST status Dilated cardiomyopathy (HCC) TYPE AND SCREEN, Routine 09/21/2018 Awaiting organ transplant AUTOMATED 8:19 AM AUDIOMETRIST status Dilated cardiomyopathy (HCC) RETICULOCYTE COUNT Routine 09/21/2018 Awaiting organ transplant 8:19 AM AUDIOMETRIST status Dilated cardiomyopathy (HCC) CBC W/PLT COUNT & AUTO Routine 09/21/2018 Awaiting organ transplant DIFFERENTIAL 8:19 AM AUDIOMETRIST status Dilated cardiomyopathy (HCC) MAXIMAL VO2 CARDIOPULM Routine 03/28/2018 Left ventricular failure TEST - SLMT 9:42 AM CDT (HCC) after 01/23/2018 Results * HEP B SURFACE AB (01/04/2019 10:48 AM CDT) Hep B S Ab Reactive [facility] 1 Comment: No n Reactive: Inconsistent with immunity, less than 10 mIU/mL Re active: Consistent with immunity, grea ter than 9.9 mIU/mL Specimen Narrative Performed At Performed at:[address] [place] [address] [facility] [address] [place], [id number] Warping Machine Operator: Chapo Al MD, Phone:[phone] Performing Organization Address City/State/Zipcode Phone Number [facility] * Hepatitis B core antibody, total (01/04/2019 10:48 AM CDT) Only the most recent of 2 results within the time period is included. Hep B Core Ab, Tot Negative Negative [facility] 1 Specimen Narrative Performed At Performed at:[address] [place] [address] [facility] [address] [place], [place] [id number] Warping Machine Operator: Chapo Al MD, Phone:[phone] Performing Organization Address City/[facility] [place] Phone Number [facility] * Hepatitis B surface antigen (01/04/2019 10:48 AM CDT) Only the most recent of 2 results within the time period is included. HBsAg Screen Negative Negative [facility] Specimen Narrative Performed At Performed at:[address] [place] [id number] Warping Machine Operator: Chapo Al MD, Phone:[phone] Performing Organization Address [facility] [place] Phone Number [facility] * Hepatitis A antibody, total ([facility] Only) (12/29/2018 10:50 AM CDT) Hep A Ab, Total Positive (A) Negative [facility] Specimen Blood Narrative Performed At Performed at:[address] [place], [place] [id number] Warping Machine Operator: Chapo Al MD, Phone:[phone] Performing Organization Address [facility] [place] Phone Number [facility] * Hepatitis B Viral DNA, quant PCR (12/29/2018 10:49 AM CDT) HBV as IU/mL HBV DNA not detected IU/mL [facility] 1 log10 HBV as IU/mL CANCELED log10 IU/mL [facility] 1 Comment: Unable to calculate result since non-numeric result obtained for component test. Result canceled by the ancillary. Test Information CommentComment: The reportable [facility] 1 range for this assay is 10 IU/mL to 1 billion IU/mL. Specimen Blood Narrative Performed At Performed at:[address] [place] [address] [address] [place], [id number] Warping Machine Operator: Althea Cee MD, Phone:[phone] Performing Organization Address City/[facility] Phone Number [facility] * Hemochromatosis by PCR (12/29/2018 10:49 AM CDT) Hereditary Comment [facility] Hemochromatosis Comment: Result: CARRIER Single mutation (H63D) identified Interpretation: This patient's sample was analyzed for the hereditary hemochromatosis (HH) mutations C282Y, H63D, and S65C.A single copy of H63D was identified.Results for C282Y and S65C were negative. This person is most likely an unaffected carrier.Approximately 1 in 9 Caucasians are carriers of HH.The mutations analyzed by [facility] are most common in the population.Because this panel does not identify rare HH mutations or HH mutations found in other ethnic groups, there are a small number of people who may have a single copy of H63D who are actually affected.The diagnosis of HH should include clinical findings and other test results, such as transferrin-iron saturation and/or serum ferritin studies and/or liver biopsy.HH is inherited in a recessive manner.Should this individual have children with a partner who is also a carrier for HH, there is a 25% chance per offspring that he/she is affected.Genetic counseling and HH molecular testing are recommended for at-risk family members. Methodology: DNA Analysis of the HFE gene was performed by PCR amplification followed by restriction enzyme digestion analyses. Reference: Bria JS and Adonis AP. (2000). [facility] Test 4:97-101. Enid WOLF et al. (1999). AM J Prev Med 16:134-140. Heather Farrell (2002). Lancet 360(4868):1673-61. Lissette Walsh et al. (2002). Blood Cells, Molecules. and Diseases.293):418-432. Windy Smith et al. (2003). [facility] Med. 5(1):1-8. Enid WOLF et al. (2003). [place] Med. 5(4):304-10. This test was developed and its performance characteristics determined by [facility]. It has not been cleared or approved by the Food and Drug Administration. Genetic counselors are available for health care providers to discuss results at [phone]. Aubrey Atwood, PhD, [facility] Regi Lomas, PhD, [facility] John HawkS., PhD, [facility] Joyce Hinds, PhD, [facility] Darryl Foster, PhD, [facility] Jose Benson, PhD, [facility] Specimen Blood Narrative Performed At Performed at:02 - [facility] RTP [facility] [address], [facility], [id number] Warping Machine Operator: Ubaldo Miles MD,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 [facility] Pos Ctrl Spot Ct 0 [facility] Scan Result [facility] Specimen Blood Narrative Performed At Performing Organization Address City/State/Zipcode Phone Number [facility], [place] [address] LABORATORIES 100 * FLOW PRA CLASS II WITH REFLEX TO ANTIBODY SPECIFICITY (09/21/2018 10:01 AM AUDIOMETRIST) Flow Class II Percent [address] [facility] Positive Flow Class Report [facility] Comments Specimen Blood Narrative Performed At Disclaimer: [facility] This test was developed and its performance characteristics determined by the [facility] Laboratory. It has not been cleared or approved by the U.S. Food and Drug Administration. The FDA has determined that such clearance or approval is not necessary. This test is used for clinical purposes. It should not be regarded as investigational or for research. This laboratory is certified under the Clinical Laboratory Improvement Amendments of 1988 (CLIA-88) as qualified to perform high complexity clinical laboratory testing. Performing Organization Address City/[facility] Cent[facility]ode Phone Number [facility] ONE Konrad Yang, MS: [id number], [place] [address] CLIA#[id number] CAP#[id number] UNOS#[id number] * FLOW PRA CLASS I WITH REFLEX TO ANTIBODY SPECIFICITY (09/21/2018 10:01 AM AUDIOMETRIST) Flow Class I Percent [address] [facility] Positive Flow Class Report [facility] Comments Specimen Blood Narrative Performed At Disclaimer: [facility] This test was developed and its performance characteristics determined by the [facility] Laboratory. It has not been cleared or approved by the U.S. Food and Drug Administration. The FDA has determined that such clearance or approval is not necessary. This test is used for clinical purposes. It should not be regarded as investigational or for research. This laboratory is certified under the Clinical Laboratory Improvement Amendments of 1988 (CLIA-88) as qualified to perform high complexity clinical laboratory testing. Performing Organization Address City/State/[facility]ode Phone Number [facility] Konrad Yang, MS: [id number], [place] [address] CLIA#[id number] CAP#[id number] UNOS#[id number] * Hepatitis A antibody, IgG (09/21/2018 10:01 AM AUDIOMETRIST) Hep A IgG Reactive (A) Nonreactive [facility] Specimen Blood Performing Organization Address City/[facility]/Zipcode Phone Number [facility] [address] [place], [place] [phone] [facility] * AB SPECIFICITY CLASS II (09/21/2018 10:01 AM AUDIOMETRIST) AB Specificity Class II NO CLASS II ANTIBODY DETECTED [facility] WITH MFIs > 4000 AB Specificity Titr Class [facility] Report Specimen Blood Narrative Performed At Disclaimer: [facility] This test was developed and its performance characteristics determined by the [facility] Laboratory. It has not been cleared or approved by the U.S. Food and Drug Administration. The FDA has determined that such clearance or approval is not necessary. This test is used for clinical purposes. It should not be regarded as investigational or for research. This laboratory is certified under the Clinical Laboratory Improvement Amendments of 1988 (CLIA-88) as qualified to perform high complexity clinical laboratory testing. Performing Organization Address [facility] Phone Number [facility] Konrad Yang, MS: [id number], [place] [address] CLIA#[id number] CAP#[id number] UNOS#[id number] * AB SPECIFICITY CLASS I (09/21/2018 10:01 AM AUDIOMETRIST) AB Specificity Class I A:32 [facility] AB Specificity Titr Class MFIs > [address] [facility] Report Specimen Blood Narrative Performed At Disclaimer: [facility] This test was developed and its performance characteristics determined by the [facility] Laboratory. It has not been cleared or approved by the U.S. Food and Drug Administration. The FDA has determined that such clearance or approval is not necessary. This test is used for clinical purposes. It should not be regarded as investigational or for research. This laboratory is certified under the Clinical Laboratory Improvement Amendments of 1988 (CLIA-88) as qualified to perform high complexity clinical laboratory testing. Performing Organization Address [facility]/State/Zipcode Phone Number [facility] ONE [facility] Trey, MS: [id number], [place] [id number] CLIA#[id number] CAP#[id number] UNOS#[id number] * HIV-1 Antigen with HIV-1/2 Antibody (09/21/2018 10:01 AM AUDIOMETRIST) HIV-1 Antigen with HIV NON-REACTIVE Nonreactive [facility] 1&2 Antibody [facility] Specimen Blood Performing Organization Address City/State/Zipcode Phone Number [address] [address] [facility] * Hepatitis C antibody (09/21/2018 10:01 AM AUDIOMETRIST) Hepatitis C Ab Reactive (A) Nonreactive [facility] Specimen Blood Performing Organization Address City/[facility]/Zipcode Phone Number [address] [address] [facility] * CMV antibody, IgM (09/21/2018 10:01 AM AUDIOMETRIST) CMV IGM Negative Negative, Equivocal [facility] Specimen Blood Narrative Performed At CMV IgM Result Interpretation: [facility] </=0.8 Al Negative [facility] 0.9-1.0 Al Equivocal >/=1.1 Al Positive Performing Organization Address City/[facility]/Zipcode Phone Number [address] [address] [facility] * Hepatitis A antibody, IgM (09/21/2018 10:01 AM AUDIOMETRIST) Hep A IgM HEPATITIS A TEST NEGATIVE Nonreactive [facility] Specimen Blood Performing Organization Address City/[facility]/Zipcode Phone Number [address] [address] [facility] * Toxoplasma gondii antibody, IgM (09/21/2018 10:01 AM AUDIOMETRIST) Toxoplasma gondii IgM Negative [facility] Specimen Blood Performing Organization Address City/State/Zipcode Phone Number [facility] [address] * Herpes virus, IgM (09/21/2018 10:01 AM AUDIOMETRIST) Herpes Virus IGM Negative [facility] Specimen Blood Narrative Performed At HSV IgM 1=NEGATIVE [facility] HSV IgM 2=NEGATIVE [facility] Performing Organization Address City/[facility]ode Phone Number [address] * Hepatitis B core antibody, IgM (09/21/2018 10:01 AM AUDIOMETRIST) Hep B C IgM NON-REACTIVE Nonreactive [facility] Specimen Blood Performing Organization Address [facility] Phone Number [address] * EBV-VCA antibody, IgM (09/21/2018 10:01 AM AUDIOMETRIST) SATN EDGAR VIRAL CAPSID Negative Negative, Equivocal [facility] ANTIGEN IGM [facility] Specimen Blood Narrative Performed At Stan Edgar Viral Capsid Antigen IgM Result Interpretation: [facility] </=0.8 Al Negative [facility] 0.9-1.0 Al Equivocal >/=1.1 Al Positive Performing Organization Address [facility] Phone Number [address] * EBV-VCA antibody, IgG (09/21/2018 10:01 AM AUDIOMETRIST) STAN EDGAR VIRAL CAPSID Positive (A) Negative, Equivocal [facility] ANTIGEN IGG [facility] Specimen Blood Narrative Performed At Stan Edgar Viral Capsid Antigen IgG Result Interpretation: [facility] </=0.8 Al Negative [facility] 0.9-1.0 Al Equivocal >/=1.1 Al Positive Performing Organization Address [facility] Centercode Phone Number [address] [address] [phone] [place] [address] * Hepatitis B e antigen (09/21/2018 10:01 AM AUDIOMETRIST) Hep Be Ag (Antigen) NONREACTIVEComment: REFERENCE [facility] RANGES: NONREACTIVE INCORPORATED Specimen Blood Narrative Performed At Performing Lab [facility] *[facility] [address] [place] [address] Katia Mccarty MD Performing Organization Address City/State/Zipcode Phone Number [facility], [address] [place], [place] INCORPORATED [facility] [address] * Vitamin D, 25-Hydroxy (09/21/2018 10:01 AM AUDIOMETRIST) Vitamin D 25-Hydroxy 33.7 6.6 - 49.9 ng/mL [facility] Specimen Blood Narrative Performed At Effective 07/13/2017: Reference Range Change [facility] New: 6.6-49.9 ng/mL Previous: 13.0-47.8 ng/mL [facility] Recommended Vitamin D Target Range: 30.0-40.0 ng/mL Performing Organization Address [facility] Phone Number [address] * Herpes virus, IgG (09/21/2018 10:01 AM AUDIOMETRIST) Herpes Virus IGG Positive [facility] Specimen Blood Narrative Performed At [facility] HSV IgG 1=POSITIVE [facility] HSV IgG 2=NEGATIVE Performing Organization Address City/[facility] Phone Number [address] * Toxoplasma gondii antibody, IgG (09/21/2018 10:01 AM AUDIOMETRIST) TOXOPLASMA GONDII IGG <3.0 <10.0 IU/mL [facility] Specimen Blood Narrative Performed At Toxoplasma Gondii IgG Result Interpretation: [facility] </=9.9 IU/mLNormal [facility] 10-11 IU/mLEquivocal >/=12 IU/mL Positive Performing Organization Address [facility] [place] [address] [facility] * RPR (09/21/2018 10:01 AM AUDIOMETRIST) RPR Nonreactive Nonreactive [facility] Specimen Blood Performing Organization Address City/[facility]ode Phone Number [address] [address] [facility] * CMV antibody, IgG (09/21/2018 10:01 AM AUDIOMETRIST) CYTOMEGALOVIRUS, IGG Positive (A) Negative, Equivocal [facility] Specimen Blood Narrative Performed At CMV IgG Result Interpretation: [facility] </=0.8 Al Negative [facility] 0.9-1.0 Al Equivocal >/=1.1 AlPositive Performing Organization Address [facility] [place] [address] [phone] [place] [address] * FRANC (09/21/2018 10:01 AM AUDIOMETRIST) FRANC Negative Negative [facility] Specimen Blood Narrative Performed At Test performed by IFA method. [facility] Test performed by IFA method. [facility] Performing Organization Address [facility] [place] [address] [phone] [place] [address] * Uric acid (09/21/2018 10:01 AM AUDIOMETRIST) Uric Acid 11.7 (H) 2.6 - 7.2 mg/dL [facility] Specimen Blood Performing Organization Address City/[facility]/Zipcode Phone Number [address] [address] [facility] * Transferrin (09/21/2018 10:01 AM AUDIOMETRIST) Transferrin 283 174 - 382 mg/dL [facility] Specimen Blood Performing Organization Address City/[facility]/Zipcode Phone Number [address] [address] [facility] * TSH (09/21/2018 10:01 AM AUDIOMETRIST) TSH 1.73 0.35 - 4.94 uIU/mL [facility] Specimen Blood Performing Organization Address [facility] Phone Number [facility] [address] [place] [address] [facility] * T4, free (09/21/2018 10:01 AM AUDIOMETRIST) Free T4 0.92 0.70 - 1.48 ng/dL [facility] Specimen Blood Performing Organization Address [facility] Phone Number [address] [address] [phone] [place] [address] * Protein electrophoresis, serum (09/21/2018 10:01 AM AUDIOMETRIST) Albumin Fraction 4.2 3.5 - 5.5 g/dL [facility] Alpha 1 Fraction 0.2 0.2 - 0.4 g/dL [facility] Alpha 2 Fraction 0.7 0.5 - 0.9 g/dL [facility] Beta Fraction 1.6 (H) 0.6 - 1.1 g/dL [facility] Gamma Globulin Fraction 1.4 0.7 - 1.7 g/dL [facility] Interpretation Slight beta-gamma bridging, [facility] suggesting component of mild [facility] hepatic dysfunction. No monoclonal bands detected. Pathologist: Talya Ramirez MD [facility] (electronic signature) [facility] Protein, Total 8.1 6.0 - 8.3 gm/dL [facility] Specimen Blood Performing Organization Address [facility] Phone Number [address] [address] [phone] [place] [address] * PSA (09/21/2018 10:01 AM AUDIOMETRIST) PSA 0.5 0.0 - 4.0 ng/mL [facility] Specimen Blood Performing Organization Address City/[facility] Cent[facility] Phone Number [address] * Prealbumin (09/21/2018 10:01 AM AUDIOMETRIST) Prealbumin 25Comment: Specimen slightly 14 - 45 mg/dL [facility] hemolyzed [facility] Specimen Blood Performing Organization Address City/[facility] Cent[facility] Phone Number [address] * Phosphorus (09/21/2018 10:01 AM AUDIOMETRIST) Phosphorus 3.6 2.3 - 4.7 mg/dL [facility] Specimen Blood Performing Organization Address [facility] Phone Number [address] * Beta Natriuretic Factor (BNP) (09/21/2018 10:01 AM AUDIOMETRIST) BNP 381 (H) 0 - 100 pg/mL [facility] Specimen Blood Performing Organization Address [facility] Phone Number [address] * Magnesium (09/21/2018 10:01 AM AUDIOMETRIST) Magnesium 1.3 (L) 1.6 - 2.6 mg/dL [facility] Specimen Blood Performing Organization Address City/[facility] Phone Number [address] * Lipase (09/21/2018 10:01 AM AUDIOMETRIST) Lipase 87 (H) 8 - 78 U/L [facility] Specimen Blood Performing Organization Address [facility] Phone Number [address] * Lactate dehydrogenase (LDH) (09/21/2018 10:01 AM AUDIOMETRIST) LDH 237 (H) 125 - 220 U/L [facility] Specimen Blood Performing Organization Address City/[facility] Cent[facility]ode Phone Number [place] [phone] * Iron, serum (09/21/2018 10:01 AM AUDIOMETRIST) Iron 315.0 (H) 40.0 - 160.0 ug/dL [facility] Specimen Blood Performing Organization Address City/[facility] Cent[facility]ode Phone Number [address] [address] [phone] [place] [address] * Hemoglobin A1c (09/21/2018 10:01 AM AUDIOMETRIST) Hemoglobin A1C 6.3 (H) 4.3 - 6.1 % [facility] Specimen Blood Performing Organization Address [facility] Phone Number [phone] [place] [address] * Gamma Glutamyl Transferase (GGT) (09/21/2018 10:01 AM AUDIOMETRIST) GGT 115 (H) 9 - 64 U/L [facility] Specimen Blood Performing Organization Address [facility] Phone Number [address] [address] [phone] [place] [address] * Ferritin (09/21/2018 10:01 AM AUDIOMETRIST) Ferritin 655 (H) 5 - 275 ng/mL [facility] Specimen Blood Performing Organization Address City/[facility] Phone Number [address] [address] [facility] * Lipid panel (FASTING) (09/21/2018 10:01 AM AUDIOMETRIST) Triglycerides 72 mg/dL [facility] Cholesterol 140 mg/dL [facility] HDL 50 mg/dL [facility] LDL Calculated 76 mg/dL [facility] Specimen Blood Narrative Performed At Triglyceride Reference Range: [facility] Low Risk <150 [facility] [id number] High Risk 200-499 Very High Risk>=500 Cholesterol Reference Range: Low Risk <200 [id number] High Risk>240 HDL Cholesterol Reference Range: Low Risk >=60 High Risk <40 LDL Cholesterol Reference Range: Optimal<100 Near [id number] Very High >=190 Performing Organization Address [facility] Phone Number [facility] [address] [place] [address] MEDICAL CENTER * ECG 12 lead (09/21/2018 9:52 AM AUDIOMETRIST) Specimen Narrative Performed At Ventricular Rate 70 BPM GE MUSE Atrial Rate 69 BPM QRS Duration 172 ms Q-T Interval 504 ms QTC Calculation(Bazett) 544 ms R Canby -31 degrees T Canby 102 degrees Ventricular-paced rhythm Biventricular pacemaker detected Abnormal ECG No previous ECGs available Confirmed by Josué Galicia ([id number]) on 09/21/2018 3:41:41 PM Procedure Note Interface, External Ris In - 09/21/2018 3:41 PM AUDIOMETRIST Ventricular Rate 70 BPM Atrial Rate 69 BPM QRS Duration 172 ms Q-T Interval 504 ms QTC Calculation(Bazett) 544 ms R Canby -31 degrees T [place] 102 degrees Ventricular-paced rhythm Biventricular pacemaker detected Abnormal ECG No previous ECGs available Confirmed by Josué Galicia ([id number]) on 09/21/2018 3:41:41 PM Performing Organization Address City/[facility] Phone Number GE MUSE * PT/PTT (09/21/2018 9:02 AM AUDIOMETRIST) Protime 37.5 (H) 11.7 - 14.7 seconds [facility] INR 3.8 <=5.9 [facility] PTT 48.0 (H) 22.5 - 36.0 seconds [facility] Specimen Blood Narrative Performed At RECOMMENDED COUMADIN/WARFARIN INR THERAPY RANGES [facility] STANDARD DOSE: 2.0 - 3.0 Includes: PROPHYLAXIS for venous thrombosis, [facility] systemic embolization; TREATMENT for venous thrombosis and/or pulmonary embolus. HIGH RISK: Target INR is 2.5-3.5 for patients with mechanical heart valves. Performing Organization Address [facility] Centercode Phone Number [facility] [address] [place] [address] [facility] * Urinalysis w/Microscopic (09/21/2018 9:01 AM AUDIOMETRIST) Color, UA Yellow [facility] Clarity, UA Clear [facility] Specific [place], UA 1.007 1.001 - 1.035 [facility] pH, UA 6.5 5.0 - 8.0 [facility] Protein, UA Negative Negative [facility] Glucose, UA Negative Negative [facility] Ketones, UA Negative Negative [facility] Bilirubin, UA Negative Negative [facility] Blood, UA Negative Negative [facility] Nitrite, UA Negative Negative [facility] Leukocytes, UA Negative Negative [facility] [place] Urobilinogen, UA 0.2 0.2 - 1.0 mg/dL [facility] [place] RBC, UA <1 /HPF [facility] WBC, UA 0 /HPF [facility] Hyaline Casts, UA 1 /LPF [facility] [place] Specimen Source [facility] [place] Specimen Urine Performing Organization Address City/[facility]/Zipcode Phone Number [facility] [address] [place] [address] [facility] * HLA TYPING CII (09/21/2018 8:20 AM AUDIOMETRIST) HLA-DR AG1 [address] [facility] HLA-DR AG2 [address] [facility] HLA[facility]DR AG3-[address] [facility] HLA[facility]DR AG3-[address] [facility] HLA[facility]DR AG4-[address] [facility] HLA-DR AG4-[address] [facility] HLA[facility]DR AG5-[address] [facility] HLA-DR AG5-[address] [facility] HLA-DQA1 AG 1-[address] [facility] HLA-DQA1 AG 1-[address] [facility] HLA-DQB1 AG 1-[address] [facility] HLA-DQB1 AG 1-[address] [facility] HLA-DPA1 AG 1-[address] [facility] HLA-DPA1 AG 1-[address] [facility] HLA-DPB1 AG 1-1 04:[address] [facility] HLA-DPB1 AG 1-2 04:[address] [facility] HLA-AG Notes [facility] HLA-AG Report Comments [facility] Specimen Blood Narrative Performed At Disclaimer: [facility] This test was developed and its performance characteristics determined by the [facility]. It has not been cleared or approved by the U.S. Food and Drug Administration. The FDA has determined that such clearance or approval is not necessary. This test is used for clinical purposes. It should not be regarded as investigational or for research. This laboratory is certified under the Clinical Laboratory Improvement Amendments of 1988 (CLIA-88) as qualified to perform high complexity clinical laboratory testing. Performing Organization Address City/State/Zipcode Phone Number [facility] ONE [facility] [place], [place]: [id number], [place] [address] CLIA#[id number] CAP#[id number] UN[facility]#[id number] * HLA TYPING CI (09/21/2018 8:20 AM AUDIOMETRIST) HLA-A AG1 [address] [facility] HLA-A AG2 [address] [facility] HLA-B AG1 [address] [facility] HLA[facility]B AG2 [address] [facility] HLA-C AG1 [address] [facility] HLA-C AG2 [address] [facility] HLA-B BW1 [address] [facility] HLA-B BW2 [address] [facility] HLA-AG Notes [facility] HLA-AG Report Comments [facility] Specimen Blood Narrative Performed At Disclaimer: [facility] This test was developed and its performance characteristics determined by the [facility]. It has not been cleared or approved by the U.S. Food and Drug Administration. The FDA has determined that such clearance or approval is not necessary. This test is used for clinical purposes. It should not be regarded as investigational or for research. This laboratory is certified under the Clinical Laboratory Improvement Amendments of 1988 (CLIA-88) as qualified to perform high complexity clinical laboratory testing. Performing Organization Address City/State/Zipcode Phone Number [facility] ONE Konrad Yang, : [id number], [place] [address] CLIA#[id number] CAP#[id number] [facility]#[id number] * Type and Screen, Automated (Lab Draw #1) (09/21/2018 8:19 AM AUDIOMETRIST) ABO/RH AUTOMATED (BEAKER) O POSITIVE [facility] Ab Scrn NEGATIVE [facility] Specimen Blood Performing Organization Address City/[facility]/Zipcode Phone Number [facility] [address] [place] [address] MED[facility] * CBC with platelet count + automated diff (09/21/2018 8:19 AM AUDIOMETRIST) WBC 4.6 3.5 - 10.5 K/L [facility] [place] RBC 4.47 (L) 4.63 - 6.08 M/L [facility] [place] Hemoglobin 14.7 13.7 - 17.5 GM/DL [facility] [place] Hematocrit 41.7 40.1 - 51.0 % [facility] [place] MCV 93.3 (H) 79.0 - 92.2 fL [facility] [place] MCH 32.9 (H) 25.7 - 32.2 pg [facility] [place] MCHC 35.3 32.3 - 36.5 GM/DL [facility] [place] RDW 12.7 11.6 - 14.4 % [facility] [place] Platelets 176 150 - 450 K/CU MM [facility] [place] MPV 10.4 9.4 - 12.4 fL [facility] [place] nRBC 0 0 - 0 /100 WBC [facility] [place] % Neutros 57 % [facility] % Lymphs 25 % [facility] [place] % Monos 11 % [facility] % Eos 5 % [facility] [place] % Baso 1 % [facility] # Neutros 2.60 1.78 - 5.38 K/L [facility] [place] # Lymphs 1.12 (L) 1.32 - 3.57 K/L [facility] [place] # Monos 0.51 0.30 - 0.82 K/L [facility] [place] # Eos 0.22 0.04 - 0.54 K/L [facility] [place] # Baso 0.06 0.01 - 0.08 K/L [facility] [place] Immature 1 0 - 1 % [facility] Granulocytes-Relative [facility] Specimen Blood Performing Organization Address City/[facility] Phone Number [address] * Reticulocytes (09/21/2018 8:19 AM AUDIOMETRIST) % Retic 2.0 (H) 0.5 - 1.8 % [facility] [place] Specimen Blood Performing Organization Address City/[facility] Centercoct Phone Number [address] * Direct [facility] (DEEPA)/Direct Clau (09/21/2018 8:19 AM AUDIOMETRIST) Direct [facility]-IGG NEGATIVE [facility] Direct [facility]-C3B, C3D NEGATVIE [facility] Specimen Blood Performing Organization Address City/[facility] Centercode Phone Number [address] * MAXIMAL VO2 CARDIOPULM TEST (MVO2) (03/28/2018 9:42 AM CDT) Narrative Performed At Performing Organization Address City/[facility] Phone Number GE RIS after 01/23/2018 Insurance Payer Benefit Subscriber ID Type Phone Address Plan / Group BLUE CROSS/[employer] BCBS OS xxxxxxxxxxxx PPO [phone] [address] [place] [address] O
--- OUTSIDE RECORDS SUMMARY | 2019-01-24 11:13 | XMS REPORT ---
Author [facility] Address Unknown Phone Unavailable Care Team Providers [employer] Consultant Name Role Phone John HARVEY Unavailable Unavailable GIULIANA DEL REAL Unavailable Unavailable Payers Payer Name Policy Type Policy Number Effective Date Expiration Date Problems This patient has no known problems. Allergies, Adverse Reactions, Alerts Allergy Name Allergy Type Status Severity Reaction(s) Onset Date Inactive Date Treating Clinician Comments No Known Allergies DA Active U 2016-06-17 00:00:00 Medications This patient has no known medications. Results Test Description Test Time Test Comments Text Results Atomic Results Result Comments U/S, ABDOMINAL, WITH DOPPLER 2018-12-29 14:06:00 Referring: Dr. Max Iglesias, FATTY LIVERReason for Exam:->HEPATITIS Addendum BeginsREPORT STATUS:A Innumerable tiny reticular and nodular echogenic foci in the spleen could reflect the presence of [place] bodies. Infiltrative process is considered much less likely. This finding is amenable to follow-up. Signed: Nicole Mchugh MDReport Verified Date/Time: 12/29/2018 14:06:18 Reading Location: [address] Radiology Reading RoomAddendum EndsFINAL REPORT Ultrasound of the Abdomen and Doppler [...] which appears markedly heterogeneous. Signed: Nicole Mchugh MDReport Verified Date/Time: 12/29/2018 11:17:46 Reading Location: [address] Radiology Reading Room ELLANEOUS LAB ORDER 2018-12-18 10:13:00 SCAN RESULT (test zubi=[id number]) CREATININE [id number] 13:44:00* Test Item Value Reference Range Comments CREATININE CLEARANCE (BEAKER) (test vgae=143) 68.7 mL/min 70.0-140.0 VOLUME, TOTAL (BEAKER) (test mpiq=3849) 1575 ml CREATININE URINE (BEAKER) (test wpah=398) 64.5 mg/dL PATIENT HEIGHT (CM) (BEAKER) (test tyfi=8817) 178.0 cm PATIENT WEIGHT (KG) (BEAKER) (test kqcq=0266) 86.200 kg [id number] 11:32:00* Test Item Value Reference Range Comments CREATININE (BEAKER) (test heip=321) 0.86 mg/dL 0.57-1.25 EGFR (BEAKER) (test vygf=1789) 90 mL/min/1.73 sq m ESTIMATED GFR IS NOT ACCURATE CREATININE CLEARANCE IN PREDICTING GLOMERULAR FILTRATION RATE. ESTIMATED GFR IS NOT APPLICABLE FOR DIALYSIS PATIENTS. CT, ABDOMEN, WITHOUT [id number] 09:13:00Referring: Dr. Randy Lund FINAL REPORT TECHNIQUE: CT of the chest and abdomen WITHO UT intravenous contrast and WITH oral contrast. Dose modulation, iterative recon struction, and/or weight-based adjustment of the mA/kV was utilized to reduce th e radiation dose to as low as reasonably achievable. INDICATION: 63-year-old man for heart transplant evaluation. COMPARISON: None. FINDINGS: ABSENCE OF INTRAV ENOUS CONTRAST DECREASES SENSITIVITY FOR DETECTION OF FOCAL LESIONS AND VASCULAR PATHOLOGY. LINES/TUBES: Implanted cardiac device in the soft tissues of the ant erior left chest with leads which terminate in the right atrium, coronary sinus, and right ventricle. LUNGS AND AIRWAYS: Central airways are patent. No consolid ation. 3 mm nodule in the right upper lobe (axial lung window series image 20). 3 mm nodule in the right lower lobe (axial lung window series image 47). Subcent imeter calcified granuloma in the right lower lobe.PLEURA: The pleural spaces ar e clear.HEART AND MEDIASTINUM: The visualized thyroid gland is normal. No signif icant mediastinal, hilar, or axillary lymphadenopathy. Cardiomegaly. No pericard ial effusion. Atherosclerotic calcifications in the thoracic aorta and coronary arteries. Prominent main pulmonary artery measures approximately 3.[address] HEPATOBILIARY: No focal hepatic lesions. 0.4 cm hyperdense focus in the gal lbladder, likely a gallstone. No gallbladder wall thickening or pericholecystic edema. No biliary ductal dilatation.SPLEEN: No splenomegaly.PANCREAS: No focal m asses or ductal dilatation. ADRENALS: No adrenal nodules.KIDNEYS/URETERS: No hyd ronephrosis or stones. 2.1 x 2.9 cm right renal cyst. PERITONEUM/RETROPERITONEUM : No free air or fluid.LYMPH NODES: No lymphadenopathy.VESSELS: Atherosclerotic vascular calcifications in the abdominal aorta and branch vessels without aneury sm. GI TRACT: No distention or wall thickening. Colonic diverticula. BONES AND S OFT TISSUES: Degenerative changes of the visualized spine. Transitional lumbosac ral anatomy. Age indeterminate compression deformity of the L1 vertebral body wi th approximately 60% height loss and no retropulsion. IMPRESSION:Cardiomegaly. Prominent pulmonary artery, suggestive of pulmonary hypertension. 3 mm pulmonary nodules in the right upper and lower lobes. Age-indeterminate moderate compress ion deformity of L1 without retropulsion. Cholelithiasis. RECOMMENDATION:If cayetano cated, follow-up chest CT may be obtained in 12 months to reassess the pulmonary nodules Signed: Jennifer Ribeiro MDReport Verified Date/Time: 10/05/2018 09:13: 46 Reading Location: [address] Radiology Reading Room Electronically sign ed by: JENNIFER RIBEIRO MD on 10/05/2018 09:[address], CHEST, WITHOUT [id number] 09:13:00Referring: [facility] CT of the chest and [...] device in the soft tissues of the ant erior left chest with leads which terminate in the right atrium, coronary sinus, and right ventricle. LUNGS AND AIRWAYS: Central airways are patent. No consolid ation. 3 mm nodule in the right upper lobe (axial lung window series image 20). 3 mm nodule in the right lower lobe (axial lung window series image 47). Subcent imeter calcified granuloma in the right lower lobe.PLEURA: The pleural spaces ar e clear.HEART AND MEDIASTINUM: The visualized thyroid gland is normal. No signif icant mediastinal, hilar, or axillary lymphadenopathy. Cardiomegaly. No pericard ial effusion. Atherosclerotic calcifications in the thoracic aorta and coronary arteries. Prominent main pulmonary artery measures approximately 3.[address] HEPATOBILIARY: No focal hepatic lesions. 0.4 cm hyperdense focus in the gal lbladder, likely a gallstone. No gallbladder wall thickening or pericholecystic edema. No biliary ductal dilatation.SPLEEN: No splenomegaly.PANCREAS: No focal m asses or ductal dilatation. ADRENALS: No adrenal nodules.KIDNEYS/URETERS: No hyd ronephrosis or stones. 2.1 x 2.9 cm right renal cyst. PERITONEUM/RETROPERITONEUM : No free air or fluid.LYMPH NODES: No lymphadenopathy.VESSELS: Atherosclerotic vascular calcifications in the abdominal aorta and branch vessels without aneury sm. GI TRACT: No distention or wall thickening. Colonic diverticula. BONES AND S OFT TISSUES: Degenerative changes of the visualized spine. Transitional lumbosac ral anatomy. Age indeterminate compression deformity of the L1 vertebral body wi th approximately 60% height loss and no retropulsion. IMPRESSION:Cardiomegaly. Prominent pulmonary artery, suggestive of pulmonary hypertension. 3 mm pulmonary nodules in the right upper and lower lobes. Age-indeterminate moderate compress ion deformity of L1 without retropulsion. Cholelithiasis. RECOMMENDATION:If cayetano cated, follow-up chest CT may be obtained in 12 months to reassess the pulmonary nodules Signed: Jennifer Ribeiro MDReport Verified Date/Time: 10/05/2018 09:13: 46 Reading Location: [address] Radiology Reading Room Electronically sign ed by: JENNIFER RIBEIRO MD on 10/05/2018 09:[address], BRAIN, WITHOUT [id number] 09:02:00Referring: Dr. [facility] Head without contrast CLINICAL HISTORY: [...] which is nonspecific but compatible with chronic microvasc ular ischemic change. There are atherosclerotic calcifications of the intracrani al circulation. There is generalized parenchymal volume loss without hydrocephal us, midline shift, or apparent mass effect. There are no extra-axial fluid colle ctions. The skull is intact. There is nonspecific posterior scalp soft tissue th ickening. There is chronic mucosal disease in the bilateral maxillary sinuses wi th small superimposed air-fluid levels. IMPRESSION: No CT evidence of acute infa rct, hemorrhage, or hydrocephalus. Acute on chronic bilateral maxillary sinusiti s. Signed: Chris Weiss Verified Date/Time: 10/05/2018 09:02:45 Readi ng Location: [address] Neuro Reading Room , BONE DENSITY [id number] 08:15:00Referring: Dr. Randy Lund Reason for Exam:->Heart transplant evaluationFINAL REPORT RAD, BONE DENSITY STUDY CLINICAL HISTORY: Heart transplant evaluation COMPARISON: None IMPRESSION:Bone mineral density measurement:Lumbar spine: 1.631 gm/io1Hfhd femoral neck: 0.959 gm/cm2 Standard deviation from young adult population (T-score)Lumbar spine: 3.8Mean femoral neck: -0.6 Standard deviation for age adjusted population (Z score)Lumbar spine: 4.6Mean femoral neck: -0.4 WHO Diagnostic criteria for osteoporosisBMD: Bone mineral densityNormal : BMD measurement less than one standard deviation from young adult populationOsteopenia: BMD measurement between 1 and 2.5 standard deviationsOsteoporosis: BMD measurement greater than 2.5 standard deviations Signed: JR Joseph Robert MDReport Verified Date/Time: 10/05/2018 08:15:26 Reading Location: [facility] Reading Room ES VIRUS ANTIBODY, [id number] 14:57:00* Test Item Value Reference Range Comments HERPES VIRUS IGG (BEAKER) (test iraq=6398) Positive HSV IgG 1=POSITIVEHSV IgG 2=NEGATIVEHERPES VIRUS ANTIBODY, [id number] 14:57:00* Test Item Value Reference Range Comments HERPES VIRUS IGM (BEAKER) (test kwaf=6867) Negative HSV IgM 1=NEGATIVEHSV IgM 2=NEGATIVETOXOPLASMA GONDII ANTIBODY, [id number] 14:57:00* Test Item Value Reference Range Comments TOXOPLASMA IGM ANTIBODY (BEAKER) (test yazc=745) Negative CYTOMEGALOVIRUS ANTIBODY, [id number] 11:45:00* Test Item Value Reference Range Comments CYTOMEGALOVIRUS, IGG (BEAKER) (test gnaa=1694) Positive Negative, Equivocal CMV IgG Result Interpretation: </=0.8 Al Negative 0.9-1.0 Al Equivocal >/=1.1 Al PositiveCYTOMEGALOVIRUS ANTIBODY, [id number] 11:45:00* Test Item Value Reference Range Comments CYTOMEGALOVIRUS IGM ANTIBODY (BEAKER) (test fzsd=5285) Negative Negative, Equivocal CMV IgM Result Interpretation: </=0.8 Al Negative 0.9-1.0 Al Equivocal > /=1.1 Al PositiveEBV ANTIBODY, [id number] 11:45:00* Test Item Value Reference Range Comments STAN EDGAR VIRAL CAPSID ANTIGEN IGG (BEAKER) (test rbwv=8134) Positive Negative, Equivocal Stan Edgar Viral Capsid Antigen IgG Result Interpretation: </=0.8 Al Negative 0.9-1.0 Al Equivocal >/=1.1 Al PositiveEBV ANTIBODY, [id number] 11:45:00* Test Item Value Reference Range Comments STAN EDGAR VIRAL CAPSID ANTIGEN IGM (BEAKER) (test hgog=4876) Negative Negative, Equivocal Stan Edgar Viral Capsid Antigen IgM Result Interpretation: </=0.8 Al Negative 0.9-1.0 Al Equivocal >/=1.1 Al PositiveTOXOPLASMA GONDII ANTIBODY, [id number] 11:45:00* Test Item Value Reference Range Comments TOXOPLASMA GONDII IGG QUANTITATIVE (BEAKER) (test beqo=3063) < IU/mL <10.0 Toxoplasma Gondii IgG Result Interpretation: </=9.9 IU/mL Normal 10-11 IU/mL Equivocal >/=12 IU/mL PositiveVARICELLA ZOSTER ANTIBODY, IGG 2018-09-25 10:55:00* Test Item Value Reference Range Comments VARICELLA ZOSTER IGG (AL) (BEAKER) (test etpb=5454) 4.0 VARICELLA ZOSTER RESULT INTERPRETATIONS: <=0.8 Al Nonreactive: Presumed non-immune to VZV 0.9-1.0 Al Equivocal >=1.1 Al Reactive: Presumed immune to VZVPROTEIN ELECTROPHORESIS, [id number] 13:42:00* Test Item Value Reference Range Comments ALBUMIN FRACTION (BEAKER) (test wgdv=817) 4.2 g/dL 3.5-5.5 ALPHA 1 FRACTION (BEAKER) (test qavk=880) 0.2 g/dL 0.2-0.4 ALPHA 2 FRACTION (BEAKER) (test aleo=595) 0.7 g/dL 0.5-0.9 BETA FRACTION (BEAKER) (test betm=086) 1.6 g/dL 0.6-1.1 GAMMA GLOBULIN FRACTION (BEAKER) (test nghv=821) 1.4 g/dL 0.7-1.7 INTERPRETATION-119 (BEAKER) (test ukxx=9087) Slight beta-gamma bridging, suggesting component of mild hepatic dysfunction. No monoclonal bands detected. [id number] (BEAKER) (test sbpe=7614) Talya Ramirez MD (electronic signature) PROTEIN TOTAL SERUM, SPEP (BEAKER) (test lvqv=7745) 8.1 gm/dL 6.0-8.3 ANTI-NUCLEAR ANTIBODY (FRANC)2018-09-22 05:47:00* Test Item Value Reference Range Comments ANTI-NUCLEAR ANTIBODY (FRANC) (BEAKER) (test uwen=345) Negative Negative Test performed by IFA method.Test performed by IFA method.HEPATITIS B CORE ANTIBODY, [id number] 20:44:00* Test Item Value Reference Range Comments HEPATITIS B CORE TOTAL ANTIBODY (BEAKER) (test ivtj=851) Reactive Nonreactive [id number] 16:53:00* Test Item Value Reference Range Comments FERRITIN (BEAKER) (test bufs=230) 655 ng/mL 5-275 HEPATITIS A ANTIBODY, [id number] 16:33:00* Test Item Value Reference Range Comments HEPATITIS A IGG ANTIBODY (BEAKER) (test nfnx=5282) Reactive Nonreactive HEPATITIS B CORE ANTIBODY, [id number] 16:31:00* Test Item Value Reference Range Comments HEPATITIS B CORE IGM ANTIBODY (BEAKER) (test pvub=751) Nonreactive Nonreactive HEPATITIS A ANTIBODY, [id number] 16:31:00* Test Item Value Reference Range Comments HEPATITIS A IGM ANTIBODY (BEAKER) (test yzip=197) Nonreactive Nonreactive HEPATITIS C [id number] 16:26:00* Test Item Value Reference Range Comments HEPATITIS C ANTIBODY (BEAKER) (test kvfw=902) Reactive Nonreactive HEPATITIS B SURFACE [id number] 16:24:00* Test Item Value Reference Range Comments HEPATITIS B SURFACE ANTIGEN (2) (BEAKER) (test brgy=3952) Nonreactive Nonreactive HIV-1 ANTIGEN WITH HIV-1/2 [id number] 16:24:00* Test Item Value Reference Range Comments HIV-1 ANTIGEN WITH HIV 1\T\2 ANTIBODY (2) (BEAKER) (test eooc=9873) Nonreactive Nonreactive [id number] 16:03:00* Test Item Value Reference Range Comments PREALBUMIN (BEAKER) (test pgur=634) 25 mg/dL 14-45 Specimen slightly hemolyzed IRON, [id number] 16:03:00* Test Item Value Reference Range Comments IRON (BEAKER) (test alvj=287) 315.0 ug/dL 40.0-160.0 [id number] 15:29:00* Test Item Value Reference Range Comments PROSTATE SPECIFIC ANTIGEN (BEAKER) (test awzq=698) 0.5 ng/mL 0.0-4.0 VITAMIN D, [id number] 15:29:00* Test Item Value Reference Range Comments VITAMIN D 25-OH (BEAKER) (test tvvk=3095) 33.7 ng/mL 6.6-49.9 Effective 07/13/2017: Reference Range ChangeNew: 6.6-49.9 ng/mL Previous: 13.0 -47.8 ng/mLRecommended Vitamin D Target Range: 30.0-40.0 ng/mLT4, [id number] 15:25:00* Test Item Value Reference Range Comments FREE T4 (BEAKER) (test rpze=885) 0.92 ng/dL 0.70-1.48 [id number] 15:25:00* Test Item Value Reference Range Comments THYROID STIMULATING HORMONE (BAYLEE) (test iqub=840) 1.73 uIU/mL 0.35-4.94 [id number] 15:04:00* Test Item Value Reference Range Comments TRANSFERRIN (BAYLEE) (test znfp=184) 283 mg/dL 174-382 U/S, RENAL, [id number] 14:34:00Referring: Dr. Randy Bob for Exam:->Heart transplant evaluationFINAL REPORT Renal ultrasound. Clinical History: Heart transplant [...] is 27 cc. Impression: 1. Right renal cyst.2. Otherwise bilateral normal renal ultrasound. Signed: Hans Elias Verified Date/Time: 09/21/2018 14:34:01 Reading Location: [address] Ultrasound Reading Room , CHEST, 2 [id number] 13:21:00Referring: Dr. Randy Bob for Exam:->Heart transplant evaluationFINAL REPORT Chest, PA and lateral. History: Heart transplant evaluation. Comparison: 12/05/2017. Discussion: Left AICD present. Cardiomegaly and thoracic aortic ectasia similar to previous. The lungs are clear without evidence of consolidation or effusion. There are no acute osseous abnormalities. The soft tissues are unremarkable. IMPRESSION: No acute cardiopulmonary abnormality. Signed: Elizabeth Sanderseport Verified Date/Time: 09/21/2018 13:21:28 Reading Location: [address] Radiology Reading Room [id number] 13:16:00* Test Item Value Reference Range Comments RPR SCREEN (BEAKER) (test ymdp=626) Nonreactive Nonreactive HEMOGLOBIN [id number] 11:53:00* Test Item Value Reference Range Comments HEMOGLOBIN A1C (BEAKER) (test tudl=767) 6.3 % 4.3-6.1 B-TYPE NATRIURETIC FACTOR (BNP)2018-09-21 10:40:00* Test Item Value Reference Range Comments B-TYPE NATRIURETIC PEPTIDE (BEAKER) (test vwvg=778) 381 pg/mL 0-100 URIC [id number] 10:11:00* Test Item Value Reference Range Comments URIC ACID (BEAKER) (test xjob=679) 11.7 mg/dL 2.6-7.2 [id number] 10:11:00* Test Item Value Reference Range Comments MAGNESIUM (BEAKER) (test ytww=657) 1.3 mg/dL 1.6-2.6 [id number] 10:11:00* Test Item Value Reference Range Comments PHOSPHORUS (BEAKER) (test wxoh=459) 3.6 mg/dL 2.3-4.7 BASIC METABOLIC [id number] 10:11:00* Test Item Value Reference Range Comments SODIUM (BEAKER) (test nmvn=539) 131 meq/L 136-145 POTASSIUM (BEAKER) (test jwvc=915) 4.7 meq/L 3.5-5.1 CHLORIDE (BEAKER) (test ekfu=639) 93 meq/L 98-107 CO2 (BEAKER) (test drhc=082) 28 meq/L 22-29 BLOOD UREA NITROGEN (BEAKER) (test ollu=895) 28 mg/dL 7-21 CREATININE (BEAKER) (test icrr=594) 1.14 mg/dL 0.57-1.25 GLUCOSE RANDOM (BEAKER) (test epox=302) 94 mg/dL 70-105 CALCIUM (BEAKER) (test cboq=140) 10.0 mg/dL 8.4-10.2 EGFR (BEAKER) (test bonc=1827) 65 mL/min/1.73 sq m ESTIMATED GFR IS NOT ACCURATE CREATININE CLEARANCE IN PREDICTING GLOMERULAR FILTRATION RATE. ESTIMATED GFR IS NOT APPLICABLE FOR DIALYSIS PATIENTS. LIPID [id number] 10:11:00* Test Item Value Reference Range Comments TRIGLYCERIDES (BEAKER) (test dule=120) 72 mg/dL CHOLESTEROL (BEAKER) (test ppii=622) 140 mg/dL HDL CHOLESTEROL (BEAKER) (test kxcl=682) 50 mg/dL LDL CHOLESTEROL CALCULATED (BEAKER) (test nbtj=282) 76 mg/dL Triglyceride Reference Range: Low Risk <150 Borderline 150-199 High Risk 200-499 Very High Risk >=500Cholesterol Reference Range: Low Risk <200 Borderline 200-239 High Risk >240HDL Cholesterol Reference Range: Low Risk >=60 High Risk <40LDL Cholesterol Reference Range: Optimal <100 Near Optimal 100-129 Borderline 130-159 High 160-189 Very High >=190 HEPATIC FUNCTION [id number] 10:11:00* Test Item Value Reference Range Comments TOTAL PROTEIN (BEAKER) (test efwx=092) 8.5 gm/dL 6.0-8.3 ALBUMIN (BEAKER) (test zmnm=6422) 4.5 g/dL 3.5-5.0 BILIRUBIN TOTAL (BEAKER) (test bnwo=462) 1.6 mg/dL 0.2-1.2 BILIRUBIN DIRECT (BEAKER) (test bptw=125) 0.8 mg/dL 0.1-0.5 ALKALINE PHOSPHATASE (BEAKER) (test mquq=502) 65 U/L 40-150 AST (SGOT) (BEAKER) (test fqvn=028) 20 U/L 5-34 ALT (SGPT) (BEAKER) (test jqyf=232) 9 U/L 6-55 GAMMA GLUTAMYL TRANSFERASE (GGT)2018-09-21 10:11:00* Test Item Value Reference Range Comments GAMMA GLUTAMYL TRANSFERASE (BEAKER) (test myap=707) 115 U/L 9-64 LACTATE DEHYDROGENASE (LDH)2018-09-21 10:11:00* Test Item Value Reference Range Comments LACTATE DEHYDROGENASE (BEAKER) (test zdce=371) 237 U/L 125-220 [id number] 10:11:00* Test Item Value Reference Range Comments LIPASE (BEAKER) (test nugd=465) 87 U/L 8-78 URINALYSIS W/ [id number] 10:01:00* Test Item Value Reference Range Comments COLOR (BEAKER) (test qexu=342) Yellow CLARITY (BEAKER) (test oqej=158) Clear SPECIFIC GRAVITY UA (BEAKER) (test qjjb=928) 1.007 1.001-1.035 PH UA (BEAKER) (test urxp=847) 6.5 5.0-8.0 PROTEIN UA (BEAKER) (test jfqm=103) Negative Negative GLUCOSE UA (BEAKER) (test lciy=524) Negative Negative KETONES UA (BEAKER) (test vinr=060) Negative Negative BILIRUBIN UA (BEAKER) (test mojx=067) Negative Negative BLOOD UA (BEAKER) (test cfns=995) Negative Negative NITRITE UA (BEAKER) (test pxbr=140) Negative Negative LEUKOCYTE ESTERASE UA (BEAKER) (test utqe=323) Negative Negative UROBILINOGEN UA (BEAKER) (test kmfx=875) 0.2 mg/dL 0.2-1.0 RBC UA (BEAKER) (test isia=336) < /HPF WBC UA (BEAKER) (test htuk=703) 0 /HPF HYALINE CASTS (BEAKER) (test kdil=093) 1 /LPF SOURCE(BEAKER) (test nhwm=8867) RETICULOCYTE [id number] 09:44:00* Test Item Value Reference Range Comments RETICULOCYTE COUNT PCT (BEAKER) (test wbsp=149) 2.0 % 0.5-1.8 CBC W/PLT COUNT & AUTO [id number] 09:44:00* Test Item Value Reference Range Comments WHITE BLOOD CELL COUNT (BEAKER) (test ufao=635) 4.6 K/ L 3.5-10.5 RED BLOOD CELL COUNT (BEAKER) (test eget=856) 4.47 M/ L 4.63-6.08 HEMOGLOBIN (BEAKER) (test isqf=525) 14.7 GM/DL 13.7-17.5 HEMATOCRIT (BEAKER) (test kgcv=436) 41.7 % 40.1-51.0 MEAN CORPUSCULAR VOLUME (BEAKER) (test ilvz=224) 93.3 fL 79.0-92.2 MEAN CORPUSCULAR HEMOGLOBIN (BEAKER) (test yurp=011) 32.9 pg 25.7-32.2 MEAN CORPUSCULAR HEMOGLOBIN CONC (BEAKER) (test vdrt=925) 35.3 GM/DL 32.3-36.5 RED CELL DISTRIBUTION WIDTH (BEAKER) (test wsve=167) 12.7 % 11.6-14.4 PLATELET COUNT (BEAKER) (test lyya=705) 176 K/CU MM 150-450 MEAN PLATELET VOLUME (BEAKER) (test fdbp=213) 10.4 fL 9.4-12.4 NUCLEATED RED BLOOD CELLS (BEAKER) (test veib=518) 0 /100 WBC 0-0 NEUTROPHILS RELATIVE PERCENT (BEAKER) (test oazk=804) 57 % LYMPHOCYTES RELATIVE PERCENT (BEAKER) (test kbpa=997) 25 % MONOCYTES RELATIVE PERCENT (BEAKER) (test qpyi=603) 11 % EOSINOPHILS RELATIVE PERCENT (BEAKER) (test zrnw=131) 5 % BASOPHILS RELATIVE PERCENT (BEAKER) (test xnxu=465) 1 % NEUTROPHILS ABSOLUTE COUNT (BEAKER) (test vvvo=083) 2.60 K/ L 1.78-5.38 LYMPHOCYTES ABSOLUTE COUNT (BEAKER) (test lnum=800) 1.12 K/ L 1.32-3.57 MONOCYTES ABSOLUTE COUNT (BEAKER) (test pxrz=761) 0.51 K/ L 0.30-0.82 EOSINOPHILS ABSOLUTE COUNT (BEAKER) (test epzm=885) 0.22 K/ L 0.04-0.54 BASOPHILS ABSOLUTE COUNT (BEAKER) (test rwng=142) 0.06 K/ L 0.01-0.08 IMMATURE GRANULOCYTES-RELATIVE PERCENT (BEAKER) (test eaan=8169) 1 % 0-1 [id number] 09:14:00* Test Item Value Reference Range Comments PROTIME (BEAKER) (test sbek=178) 37.5 seconds 11.7-14.7 INR (BEAKER) (test ceuw=610) 3.8 <=5.9 PARTIAL THROMBOPLASTIN TIME (BEAKER) (test uznl=184) 48.0 seconds 22.5-36.0 RECOMMENDED COUMADIN/WARFARIN INR THERAPY RANGESSTANDARD DOSE: 2.0 - 3.0 Inclu marvin: PROPHYLAXIS for venous thrombosis, systemic embolization; TREATMENT for lila ous thrombosis and/or pulmonary embolus.HIGH RISK: Target INR is 2.5-3.5 for pat ients with mechanical heart valves.RAD, CHEST, 2 [id number] 09:51:00 Referring: Dr. Randy Bob for Exam:->r06.02FINAL REPORT PA and Lateral views of the chest dated 12/05/2017 Clinical information: r06.02 Comment: Heart is enlarged. AICD is present. Pulmonary vasculature is unremarkable. Lungs are clear. No pulmonary infiltrate or pleural effusion is present. Impression: Cardiomegaly without pulmonary edema. Signed: James Beltrán MDReport Verified Date/Time: 12/05/2017 09:51:49 Reading Location: [address] Radiology Reading Room
--- OUTSIDE RECORDS SUMMARY | 2019-01-24 11:13 | XMS REPORT | Summary of Care ---
Author Author [facility] [place] Organization [facility] [place] Address Unknown Phone Unavailable Encounter HQ Encntr_alias(FIN) [id number] Date(s): 08/10/17 - 08/10/17 [facility] [place] [address] [phone] Discharge Disposition: Home or Self Care Attending Physician: Woodrow Adkins MD Vital Signs No data available for this section Problem List No data available for this section Allergies, Adverse Reactions, Alerts Substance Reaction Severity Status NKDA Active Medications No data available for this section Results No data available for this section Immunizations No data available for this section Procedures No data available for this section Social History No data available for this section Assessment and Plan No data available for this section
--- OUTSIDE RECORDS SUMMARY | 2019-01-24 11:13 | XMS REPORT | Summary of Care ---
Author Author [facility] Organization [facility] Address Unknown Phone Unavailable Encounter TIFFANY Jerez(PARVIN) [id number] Date(s): 09/09/17 - 09/10/17 [facility] [address] [employer] provided by [facility] [place] [address]- Discharge Disposition: Home or Self Care Attending Physician: Woodrow Adkins MD Referring Physician: Woodrow Adkins MD Vital Signs 1 2 3 Most recent to oldest [Reference Range]: 177.8 cm (09/09/17 10:05 AM) 177.8 cm (09/06/17 3:20 PM) Height 97.6 DegF (09/10/17 7:20 AM) 96.6 DegF (09/10/17 3:20 AM) 96.5 DegF (09/09/17 11:49 PM) Temperature Oral [96.4-99.1 DegF] 112/73 mmHg (09/10/17 7:20 AM) 109/69 mmHg (09/10/17 3:20 AM) 108/75 mmHg (09/09/17 11:49 PM) Blood Pressure [90-140/60-90 mmHg] 18 BRMIN (09/10/17 7:20 AM) 18 BRMIN (09/10/17 3:20 AM) 18 BRMIN (09/09/17 11:49 PM) Respiratory Rate [14-20 BRMIN] 70 bpm (09/10/17 7:20 AM) 70 bpm (09/10/17 3:20 AM) 74 bpm (09/09/17 11:49 PM) Peripheral Pulse Rate [60-100 bpm] 90.909 kg (09/09/17 10:05 AM) 90 kg (09/06/17 3:20 PM) Weight 28.76 m2 (09/09/17 10:05 AM) 28.47 m2 (09/06/17 3:20 PM) Body Mass Index Problem List Condition Effective Dates Status Health Status Informant Atrial Active fibrillation(Confirm ed) CHF (congestive Active heart failure)(Confirmed) Diabetes(Confirmed) Resolved Dilated Resolved cardiomyopathy(Confi rmed) Hypertension(Confirm Active ed) Lupus(Confirmed) Active 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 (Same as: Tylenol) Start Date: 09/09/17 Stop Date: 09/10/17 Status: Discontinued acetaminophen (ANES) Route: IV, Drug form: INJ, ONCE, Stop date: 09/09/17 11:58:00 LONG DISTANCE OPERATOR Start Date: 09/09/17 Stop Date: 09/09/17 Status: Completed ANES flumazenil 0.2 mg, 2 mL, Route: IVP, Drug form: INJ, PRN, Dosing Weight 90.909, kg, PRN Brennon zodiazepine Reversal, Initial dose, Start date: 09/09/17 11:54:00 LONG DISTANCE OPERATOR, Duration: 1 day, Stop date: 09/10/17 11:53:00 LONG DISTANCE OPERATOR Notes: (Same as: Romazicon) Start Date: 09/09/17 Stop Date: 09/09/17 Status: Discontinued ANES hydrALAZINE 10 mg, 0.5 mL, Route: IVP, Drug form: INJ, Q20Min, Dosing Weight 90.909, kg, PRN Elevated BP, Start date: 09/09/17 11:54:00 LONG DISTANCE OPERATOR, Duration: 2 doses or times, Stop date: Limited # of times Notes: (Same as: Apresoline)Push over 5 minutes Start Date: 09/09/17 Stop Date: 09/09/17 Status: Discontinued ANES HYDROmorphone 0.5 mg, 0.25 mL, Route: IVP, Drug form: INJ, Q5Min, Dosing Weight 90.909, kg, LA N Pain Score 7-10, Start date: 09/09/17 11:54:00 LONG DISTANCE OPERATOR, Duration: 4 doses or times , Stop date: Limited # of times Notes: Same as Dilaudid Start Date: 09/09/17 Stop Date: 09/09/17 Status: Discontinued ANES labetalol 10 mg, 2 mL, Route: IVP, Drug form: INJ, Q5Min, Dosing Weight 90.909, kg, PRN El evated BP, Start date: 09/09/17 11:54:00 LONG DISTANCE OPERATOR, Duration: 5 doses or times, Stop d ate: Limited # of times Start Date: 09/09/17 Stop Date: 09/09/17 Status: Discontinued ANES meperidine 12.5 mg, 0.25 mL, Route: IVP, Drug form: INJ, Q30Min, Dosing Weight 90.909, kg, PRN Other -See Comment, For shivering, Start date: 09/09/17 11:54:00 LONG DISTANCE OPERATOR, Durati on: 2 doses or times, Stop date: Limited # of times Notes: (Same as: Demerol) "Use Precaution in Elderly, Seizure disorders, and Re nal impairment" Start Date: 09/09/17 Stop Date: 09/09/17 Status: Discontinued ANES naloxone 0.4 mg, 1 mL, Route: IVP, Drug form: INJ, Q2MIN, Dosing Weight 90.909, kg, PRN N arcotic Reversal, Start date: 09/09/17 11:54:00 LONG DISTANCE OPERATOR, Duration: 8 doses or times, Stop date: Limited # of times Notes: Same as Narcan Start Date: 09/09/17 Stop Date: 09/09/17 Status: Discontinued ANES oxyCODONE 5 mg, 1 tab, Route: PO, Drug form: TAB, Q4H, Dosing Weight 90.909, kg, PRN Pain Score 4-6, Start date: 09/09/17 11:54:00 LONG DISTANCE OPERATOR, Duration: 30 day, Stop date: 10/09 11:53:00 LONG DISTANCE OPERATOR Notes: (Same as: Roxicodone) Start Date: 09/09/17 Stop Date: 09/09/17 Status: Discontinued ANES promethazine 6.25 mg, 0.25 mL, Route: IVPB, Drug form: INJ, ONCE, Dosing Weight 90.909, kg, P RN Nausea & Vomiting, Start date: 09/09/17 11:54:00 LONG DISTANCE OPERATOR Notes: Do not give IV push. (Same as: Phenergan) Start Date: 09/09/17 Stop Date: 09/09/17 Status: Discontinued Augmentin 875 mg oral tablet 1 tab, PO, Q12H, X 10 day, # 20 tab, 0 Refill(s) Start Date: 09/10/17 Stop Date: 09/20/17 Status: Ordered Augmentin 875 mg oral tablet 1 tab, Route: PO, Drug Form: TAB, Dosing Weight 90.909, kg, Q12H, Start date: 21:00:00 LONG DISTANCE OPERATOR, Duration: 5 day, Stop date: 09/14/17 9:00:00 LONG DISTANCE OPERATOR Notes: With food.(Same as: Augmentin 875) Start Date: 09/09/17 Stop Date: 09/10/17 Status: Discontinued ceFAZolin (ANES) Route: IV, Drug form: INJ, ONCE, Stop date: 09/09/17 11:53:00 LONG DISTANCE OPERATOR Start Date: 09/09/17 Stop Date: 09/09/17 Status: Completed ceFAZolin + sterile water 20 mL 2 gm, Route: IV, PRE OP, Start date: 09/09/17 2:00:00 LONG DISTANCE OPERATOR, Duration: 1 day, Stop date: 09/10/17 1:59:00 LONG DISTANCE OPERATOR, ABX Indication: Surgical Prophylaxis Notes: (Same As: Dawit Hernandez) MEDICATION WASTE Product Size: 1000 mgP roduct Wasted: ___ mg Start Date: 09/09/17 Stop Date: 09/09/17 Status: Completed dexamethasone (ANES) Route: IV, Drug form: INJ, ONCE, Stop date: 09/09/17 12:03:00 LONG DISTANCE OPERATOR Start Date: 09/09/17 Stop Date: 09/09/17 Status: Completed Dextrose 50% Syringe 25 gm, 50 mL, Route: IVP, Drug Form: INJ, Dosing Weight 90.909, kg, PRN, PRN Blo od Glucose Results, Start date: 09/09/17 15:12:00 LONG DISTANCE OPERATOR, Duration: 30 day, Stop da te: 10/09/17 15:11:00 LONG DISTANCE OPERATOR Start Date: 09/09/17 Stop Date: 09/09/17 Status: Discontinued Dextrose 50% Syringe 12.5 gm, 25 mL, Route: IVP, Drug Form: INJ, Dosing Weight 90.909, kg, PRN, PRN B lood Glucose Results, Start date: 09/09/17 15:12:00 LONG DISTANCE OPERATOR, Duration: 30 day, Stop date: 10/09/17 15:11:00 LONG DISTANCE OPERATOR Start Date: 09/09/17 Stop Date: 09/09/17 Status: Discontinued Dextrose 50% Syringe 12.5 gm, 25 mL, Route: IVP, Drug Form: INJ, Dosing Weight 90.909, kg, PRN, PRN B lood Glucose Results, Start date: 09/09/17 21:19:00 LONG DISTANCE OPERATOR, Duration: 30 day, Stop date: 10/09/17 21:18:00 LONG DISTANCE OPERATOR Start Date: 09/09/17 Stop Date: 09/10/17 Status: Discontinued Dextrose 50% Syringe 25 gm, 50 mL, Route: IVP, Drug Form: INJ, Dosing Weight 90.909, kg, PRN, PRN Blo od Glucose Results, Start date: 09/09/17 21:19:00 LONG DISTANCE OPERATOR, Duration: 30 day, Stop da te: 10/09/17 21:18:00 LONG DISTANCE OPERATOR Start Date: 09/09/17 Stop Date: 09/10/17 Status: Discontinued enoxaparin 40 mg, 0.4 mL, Route: SUB-Q, Drug form: INJ, [id number], Dosing Weight 90.909, kg, Start date: 09/10/17 3:05:00 LONG DISTANCE OPERATOR, Stop date: 10/09/17 3:05:00 LONG DISTANCE OPERATOR Notes: (Same as: Lovenox) Start Date: 09/10/17 Stop Date: 09/10/17 Status: Discontinued famotidine (ANES) Route: IV, Drug form: INJ, ONCE, Stop date: 09/09/17 12:23:00 LONG DISTANCE OPERATOR Start Date: 09/09/17 Stop Date: 09/09/17 Status: Completed fentaNYL (ANES) Route: IV, Drug form: INJ, ONCE, Stop date: 09/09/17 11:58:00 LONG DISTANCE OPERATOR Start Date: 09/09/17 Stop Date: 09/09/17 Status: Completed furosemide 40 mg, PO, Daily Start Date: 09/06/17 Status: Ordered furosemide 40 mg, 1 tab, Route: PO, Drug form: TAB, Daily, Dosing Weight 90.909, kg, Start date: 09/10/17 9:00:00 LONG DISTANCE OPERATOR, Duration: 30 day, Stop date: 10/09/17 9:00:00 LONG DISTANCE OPERATOR Notes: (Same as: Lasix) May cause GI upset. Give with food or milk. Start Date: 09/10/17 Stop Date: 09/10/17 Status: Discontinued glucagon 1 mg, Route: IM, Drug form: PDR/INJ, PRN, Dosing Weight 90.909, kg, PRN Blood Gl ucose Results, Start date: 09/09/17 15:12:00 LONG DISTANCE OPERATOR, Duration: 30 day, Stop date: 0 10/09/17 15:11:00 LONG DISTANCE OPERATOR Start Date: 09/09/17 Stop Date: 09/09/17 Status: Discontinued glucagon 1 mg, Route: IM, Drug form: PDR/INJ, PRN, Dosing Weight 90.909, kg, PRN Blood Gl ucose Results, Start date: 09/09/17 21:19:00 LONG DISTANCE OPERATOR, Duration: 30 day, Stop date: 0 10/09/17 21:18:00 LONG DISTANCE OPERATOR Start Date: 09/09/17 Stop Date: 09/10/17 Status: Discontinued hydroxychloroquine sulfate 200 mg oral tablet 200 mg, 1 tab, Route: PO, Drug form: TAB, Daily, Dosing Weight 90.909, kg, Start date: 09/10/17 9:00:00 LONG DISTANCE OPERATOR, Duration: 30 day, Stop date: 10/09/17 9:00:00 LONG DISTANCE OPERATOR Notes: (Same as: Plaquenil)Hydroxychloroquine sulfate 200 bf=107 mg hydroxychlor oquine base. If treating malaria, verify dose as salt vs. base per CDC guideline Start Date: 09/10/17 Stop Date: 09/10/17 Status: Discontinued insulin lispro 4 unit, 0.04 mL, Route: SUB-Q, Drug form: SOLN, Bedtime, Dosing Weight 90.909, k g, PRN Blood Glucose Results, Start date: 09/09/17 21:19:00 LONG DISTANCE OPERATOR, Duration: 30 da y, Stop date: 10/09/17 21:18:00 LONG DISTANCE OPERATOR Notes: (Same as: Humalog ) Roll in palms of hands gently; Do not shake `vigorou sly. "Single Patient Use Only " WASTE: F/P - Black; E - [facility] [address] [address] able for 28 days at room temperature.Expires in days from Da te Start Date: 09/09/17 Stop Date: 09/10/17 Status: Discontinued insulin lispro 3 unit, 0.03 mL, Route: SUB-Q, Drug form: SOLN, Bedtime, Dosing Weight 90.909, k g, PRN Blood Glucose Results, Start date: 09/09/17 21:19:00 LONG DISTANCE OPERATOR, Duration: 30 da y, Stop date: 10/09/17 21:18:00 LONG DISTANCE OPERATOR Notes: (Same as: Humalog ) Roll in palms of hands gently; Do not shake `vigorou sly. "Single Patient Use Only " WASTE: F/P - Black; E - [facility] [address] [address] able for 28 days at room temperature.Expires in days from Da te Start Date: 09/09/17 Stop Date: 09/10/17 Status: Discontinued insulin lispro 1 unit, 0.01 mL, Route: SUB-Q, Drug form: SOLN, Bedtime, Dosing Weight 90.909, k g, PRN Blood Glucose Results, Start date: 09/09/17 21:19:00 LONG DISTANCE OPERATOR, Duration: 30 da y, Stop date: 10/09/17 21:18:00 LONG DISTANCE OPERATOR Notes: (Same as: Humalog ) Roll in palms of hands gently; Do not shake `vigorou sly. "Single Patient Use Only " WASTE: F/P - Black; E - [facility] [address] able for 28 days at room temperature.Expires in days from Da te Start Date: 09/09/17 Stop Date: 09/10/17 Status: Discontinued insulin lispro 2 unit, 0.02 mL, Route: SUB-Q, Drug form: SOLN, Bedtime, Dosing Weight 90.909, k g, PRN Blood Glucose Results, Start date: 09/09/17 21:19:00 LONG DISTANCE OPERATOR, Duration: 30 da y, Stop date: 10/09/17 21:18:00 LONG DISTANCE OPERATOR Notes: (Same as: Humalog ) Roll in palms of hands gently; Do not shake `vigorou sly. "Single Patient Use Only " WASTE: F/P - Black; E - [facility] [address] able for 28 days at room temperature.Expires in days from Da te Start Date: 09/09/17 Stop Date: 09/10/17 Status: Discontinued Insulin regular 6 unit, 0.06 mL, Route: SUB-Q, Drug form: SOLN, TID-Before Meals, Dosing Weight 90.909, kg, PRN Blood Glucose Results, Start date: 09/09/17 15:12:00 LONG DISTANCE OPERATOR, Durati on: 30 day, Stop date: 10/09/17 15:11:00 LONG DISTANCE OPERATOR Notes: (Same as: Humulin R) Roll in palms of hands gently; Do not shake vigorou sly. "single patient use only"(Restricted to patients requiring a dose > 60 units)WASTE: F/P - Black; E - Municipal Trash Bin Stable for 28 days at room temperatureExpires in days from Date Start Date: 09/09/17 Stop Date: 09/10/17 Status: Discontinued Insulin regular 2 unit, 0.02 mL, Route: SUB-Q, Drug form: SOLN, TID-Before Meals, Dosing Weight 90.909, kg, PRN Blood Glucose Results, Start date: 09/09/17 15:12:00 LONG DISTANCE OPERATOR, Durati on: 30 day, Stop date: 10/09/17 15:11:00 LONG DISTANCE OPERATOR Notes: (Same as: Humulin R) Roll in palms of hands gently; Do not shake vigorou sly. "single patient use only"(Restricted to patients requiring a dose > 60 units)WASTE: F/P - Black; E - Municipal Trash Bin Stable for 28 days at room temperatureExpires in days from Date Start Date: 09/09/17 Stop Date: 09/10/17 Status: Discontinued Insulin regular 4 unit, 0.04 mL, Route: SUB-Q, Drug form: SOLN, TID-Before Meals, Dosing Weight 90.909, kg, PRN Blood Glucose Results, Start date: 09/09/17 15:12:00 LONG DISTANCE OPERATOR, Durati on: 30 day, Stop date: 10/09/17 15:11:00 LONG DISTANCE OPERATOR Notes: (Same as: Humulin R) Roll in palms of hands gently; Do not shake vigorou sly. "single patient use only"(Restricted to patients requiring a dose > 60 units)WASTE: F/P - Black; E - Municipal Trash Bin Stable for 28 days at room temperatureExpires in days from Date Start Date: 09/09/17 Stop Date: 09/10/17 Status: Discontinued Insulin regular 8 unit, 0.08 mL, Route: SUB-Q, Drug form: SOLN, TID-Before Meals, Dosing Weight 90.909, kg, PRN Blood Glucose Results, Start date: 09/09/17 15:12:00 LONG DISTANCE OPERATOR, Durati on: 30 day, Stop date: 10/09/17 15:11:00 LONG DISTANCE OPERATOR Notes: (Same as: Humulin R) Roll in palms of hands gently; Do not shake vigorou sly. "single patient use only"(Restricted to patients requiring a dose > 60 units)WASTE: F/P - Black; E - Municipal Trash Bin Stable for 28 days at room temperatureExpires in days from Date Start Date: 09/09/17 Stop Date: 09/10/17 Status: Discontinued Insulin regular 10 unit, 0.1 mL, Route: SUB-Q, Drug form: SOLN, TID-Before Meals, Dosing Weight 90.909, kg, PRN Blood Glucose Results, Start date: 09/09/17 15:12:00 LONG DISTANCE OPERATOR, Durati on: 30 day, Stop date: 10/09/17 15:11:00 LONG DISTANCE OPERATOR Notes: (Same as: Humulin R) Roll in palms of hands gently; Do not shake vigorou sly. "single patient use only"(Restricted to patients requiring a dose > 60 units)WASTE: F/P - Black; E - Municipal Trash Bin Stable for 28 days at room temperatureExpires in days from Date Start Date: 09/09/17 Stop Date: 09/10/17 Status: Discontinued Lactated Ringers Injection IV (ANES) 1000 mL Route: IV, Total Volume: 1,000, Start date: 09/09/17 10:41:00 LONG DISTANCE OPERATOR, Stop date: 11:41:00 LONG DISTANCE OPERATOR Start Date: 09/09/17 Stop Date: 09/09/17 Status: Completed lidocaine (ANES) Route: IV, Drug form: INJ, ONCE, Stop date: 09/09/17 11:58:00 LONG DISTANCE OPERATOR Start Date: 09/09/17 Stop Date: 09/09/17 Status: Completed lisinopril 10 mg, 1 tab, Route: PO, Drug form: TAB, Daily, Dosing Weight 90.909, kg, Start date: 09/10/17 9:00:00 LONG DISTANCE OPERATOR, Duration: 30 day, Stop date: 10/09/17 9:00:00 LONG DISTANCE OPERATOR Notes: (Same as: Prinivil, Zestril) Start Date: 09/10/17 Stop Date: 09/10/17 Status: Discontinued lisinopril 10 mg, PO, Daily Start Date: 09/06/17 Status: Ordered metFORMIN 500 mg, 1 tab, Route: PO, Drug form: TAB, BID, Dosing Weight 90.909, kg, Start d ate: 09/09/17 17:00:00 LONG DISTANCE OPERATOR, Duration: 30 day, Stop date: 10/09/17 9:00:00 LONG DISTANCE OPERATOR Notes: (Same as: Glucophage) Take with meal Start Date: 09/09/17 Stop Date: 09/10/17 Status: Discontinued metFORMIN 500 mg, PO, BID Start Date: 09/06/17 Status: Ordered metoprolol tartrate 100 mg, PO, BID Start Date: 09/06/17 Status: Ordered metoprolol tartrate 100 mg, 1 tab, Route: PO, Drug form: TAB, BID, Dosing Weight 90.909, kg, Start d ate: 09/09/17 17:00:00 LONG DISTANCE OPERATOR, Duration: 30 day, Stop date: 10/09/17 9:00:00 LONG DISTANCE OPERATOR Notes: (Same as: Lopressor) Start Date: 09/09/17 Stop Date: 09/10/17 Status: Discontinued midazolam (ANES) Route: IV, Drug form: SOLN, ONCE, Stop date: 09/09/17 11:58:00 LONG DISTANCE OPERATOR Start Date: 09/09/17 Stop Date: 09/09/17 Status: Completed phenylephrine (ANES) Route: IV, Drug form: INJ, ONCE, Stop date: 09/09/17 12:23:00 LONG DISTANCE OPERATOR Start Date: 09/09/17 Stop Date: 09/09/17 Status: Completed Plaquenil 200 mg oral tablet 200 mg=1 tab, PO, Daily, 0 Refill(s) Start Date: 09/09/17 Status: Ordered propofol (ANES) Route: IV, Drug form: INJ, ONCE, Stop date: 09/09/17 11:58:00 LONG DISTANCE OPERATOR Start Date: 09/09/17 Stop Date: 09/09/17 Status: Completed Sodium Chloride 0.9% IV (ANES) 100 mL + SUFentanil (ANES) 100 microgram Route: IV, Drug form: INJ, Start date: 09/09/17 11:20:00 LONG DISTANCE OPERATOR, Stop date: 7 12:20:00 LONG DISTANCE OPERATOR Start Date: 09/09/17 Stop Date: 09/09/17 Status: Completed spironolactone 25 mg, 1 tab, Route: PO, Drug form: TAB, Daily, Dosing Weight 90.909, kg, Start date: 09/10/17 9:00:00 LONG DISTANCE OPERATOR, Duration: 30 day, Stop date: 10/09/17 9:00:00 LONG DISTANCE OPERATOR Notes: (Same As: Aldactone) Start Date: 09/10/17 Stop Date: 09/10/17 Status: Discontinued spironolactone 25 mg=2 tab, PO, Daily Start Date: 09/06/17 Status: Ordered succinylcholine (ANES) Route: IV, Drug form: INJ, ONCE, Stop date: 09/09/17 11:58:00 LONG DISTANCE OPERATOR Start Date: 09/09/17 Stop Date: 09/09/17 Status: Completed tramadol 50 mg oral tablet 50 mg=1 tab, PO, Q4H, PRN Pain Score 4-6, X 7 day, # 50 tab, 0 Refill(s) Start Date: 09/10/17 Stop Date: 09/17/17 Status: Ordered tramadol 50 mg oral tablet 50 mg, 1 tab, Route: PO, Drug form: TAB, Q4H, Dosing Weight 90.909, kg, PRN Pain Score 4-6, Start date: 09/09/17 15:05:00 LONG DISTANCE OPERATOR, Duration: 30 day, Stop date: 04/19 15:04:00 LONG DISTANCE OPERATOR Notes: Not to exceed 400mg/day. (Same As: Ultram) Start Date: 09/09/17 Stop Date: 09/10/17 Status: Discontinued Xarelto 20 mg, PO, QPM Start Date: 09/06/17 Status: Ordered Results BLOOD BANK RESULTS Most recent to 1 2 oldest [Reference Range]: ABO/Rh O POS *Unknown* (09/09/17 10:00 AM) Antibody Scrn Negative (09/09/17 10:00 AM) ELECTROLYTES Most recent to 1 2 oldest [Reference Range]: Sodium Lvl [135-145 132 mEq/L 134 mEq/L mEq/L] *LOW* *LOW* (09/10/17 2:43 AM) (09/06/17 2:00 PM) Potassium Lvl 4.4 mEq/L 4.8 mEq/L [3.5-5.1 mEq/L] (09/10/17 2:43 AM) (09/06/17 2:00 PM) Chloride Lvl [95-109 100 mEq/L 96 mEq/L mEq/L] (09/10/17 2:43 AM) (09/06/17 2:00 PM) CO2 [24-32 mEq/L] 22 mEq/L 30 mEq/L *LOW* (09/06/17 2:00 PM) (09/10/17 2:43 AM) AGAP [10.0-20.0 14.4 mEq/L 12.8 mEq/L mEq/L] (09/10/17 2:43 AM) (09/06/17 2:00 PM) CHEM PANEL Most recent to 1 2 oldest [Reference Range]: Creatinine Lvl 0.88 mg/dL 0.73 mg/dL [0.50-1.40 mg/dL] (09/10/17 2:43 AM) (09/06/17 2:00 PM) eGFR 92 mL/min/1.73m2 1 99 mL/min/1.73m2 2 *NA* *NA* (09/10/17 2:43 AM) (09/06/17 2:00 PM) BUN [7-22 mg/dL] 18 mg/dL 20 mg/dL (09/10/17 2:43 AM) (09/06/17 2:00 PM) Glucose Lvl [70-99 270 mg/dL 158 mg/dL mg/dL] *HI* *HI* (09/10/17 2:43 AM) (09/06/17 2:00 PM) Calcium Lvl 8.6 mg/dL 10.7 mg/dL [8.5-10.5 mg/dL] (09/10/17 2:43 AM) *HI* (09/06/17 2:00 PM) 1Result Comment: The eGFR is calculated using the [...] from the National Kidney Disease Education Program ( NKDEP) which additionally recommends that when the eGFR is used in patients with extremes of body mass index for purposes of drug dosing, the eGFR should be mul tiplied by the estimated BMI. 2Result Comment: The eGFR is calculated using the [...] from the National Kidney Disease Education Program ( NKDEP) which additionally recommends that when the eGFR is used in patients with extremes of body mass index for purposes of drug dosing, the eGFR should be mul tiplied by the estimated BMI. SPECIAL CHEMISTRY Most recent to 1 2 oldest [Reference Range]: Hgb A1C [<=5.6 %] 9.2 % *HI* (09/06/17 2:00 PM) HEMATOLOGY Most recent to 1 2 oldest [Reference Range]: WBC [3.7-10.4 K/CMM] 7.1 K/CMM 5.5 K/CMM (09/10/17 2:43 AM) (09/06/17 2:00 PM) RBC [4.70-6.10 4.45 M/CMM 4.80 M/CMM M/CMM] *LOW* (09/06/17 2:00 PM) (09/10/17 2:43 AM) Hgb [14.0-18.0 g/dL] 14.3 g/dL 15.3 g/dL (09/10/17 2:43 AM) (09/06/17 2:00 PM) Hct [42.0-54.0 %] 41.1 % 44.3 % *LOW* (09/06/17 2:00 PM) (09/10/17 2:43 AM) MCV [80.0-94.0 fL] 92.3 fL 92.2 fL (09/10/17 2:43 AM) (09/06/17 2:00 PM) MCH [27.0-31.0 pg] 32.1 pg 31.9 pg *HI* *HI* (09/10/17 2:43 AM) (09/06/17 2:00 PM) MCHC [32.0-36.0 34.8 g/dL 34.7 g/dL g/dL] (09/10/17 2:43 AM) (09/06/17 2:00 PM) RDW [11.5-14.5 %] 12.4 % 12.3 % (09/10/17 2:43 AM) (09/06/17 2:00 PM) Platelet [133-450 120 K/CMM 142 K/CMM K/CMM] *LOW* (09/06/17 2:00 PM) (09/10/17 2:43 AM) MPV [7.4-10.4 fL] 8.2 fL 9.1 fL (09/10/17 2:43 AM) (09/06/17 2:00 PM) Segs [45.0-75.0 %] 80.4 % 69.3 % *HI* (09/06/17 2:00 PM) (09/10/17 2:43 AM) Lymphocytes 11.3 % 20.7 % [20.0-40.0 %] *LOW* (09/06/17 2:00 PM) (09/10/17 2:43 AM) Monocytes [2.0-12.0 7.5 % 8.0 % %] (09/10/17 2:43 AM) (09/06/17 2:00 PM) Eosinophils [0.0-4.0 0.3 % 0.9 % %] (09/10/17 2:43 AM) (09/06/17 2:00 PM) Basophils [0.0-1.0 0.5 % 1.1 % %] (09/10/17 2:43 AM) *HI* (09/06/17 2:00 PM) Segs-Bands # 5.7 K/CMM 3.8 K/CMM [1.5-8.1 K/CMM] (09/10/17 2:43 AM) (09/06/17 2:00 PM) Lymphocytes # 0.8 K/CMM 1.1 K/CMM [1.0-5.5 K/CMM] *LOW* (09/06/17 2:00 PM) (09/10/17 2:43 AM) Monocytes # [0.0-0.8 0.5 K/CMM 0.4 K/CMM K/CMM] (09/10/17 2:43 AM) (09/06/17 2:00 PM) Basophils # [0.0-0.2 0.1 K/CMM K/CMM] (09/06/17 2:00 PM) Immunizations No data available for this section Procedures Procedure Date Related Diagnosis Body Site Electrical cardioversion1 Implantation of cardiac pacemaker 1x2 Social History Social History Type Response Alcohol Current, Frequency: 1-2 times per week. Smoking Status Current every day smoker; Type: Cigarettes; Exposure to Tobacco Smoke None; Cigarette Smoking Last 365 Days Yes; Reg Smoking Cessation Counseling Yes1, 2 1Pt reports he quit smoking for 6-8 months using nicotine gum and then re-started. Smoks ~ 1ppd; has been smoking ~ 40yrs 21 pack/day Assessment and Plan Extracted from: Title: ENT Progress Note Author: Alexandre Louis MD Date: 09/10/17 ENT Daily Progress Note S: JEANETTE overnight O: VitalsTmp(F)Tmp(C)[id number] 09/10 07:[id number]/73---[id number]------ 09/10 03:2096.635.26bcsw396/69---[id number]------ 09/09 23:4996.535.25ueho804/75---[id number]------ 09/09 20:0896.535.93ophk314/81---[id number]------ 09/09 18:1494.934.94axil 24 Hr Tmax: 97.9F (36.61c) at 09/09 10:05Vital Signs are the last 5 in the past 48 hours. Head/Face: R face s/p partial auriculectomy,local flap, incisions c/d/i, NAVI in place with minimal SS output ENT: no nasal drainage, OP clear, Bloody driange in R EAC Neck: trachea midline, no LAD Chest: normal resp effort, no retractions Neuro: Alert, NFD A/P: 62yM with SLE, HTN, DM, CHF, Afib s/p R partial auriculectomy and local flap placement -Discharge to home today -Continue Augmentin -Remove NAVI drain before discharge -Follow up in one week Alexandre Zuniga MD Otolaryngology PGY-3 MSO# [id number] Please page with any questions or concerns: [phone] Extracted from: Title: Operative Note Author: Woodrow Adkins MD Date: 09/09/17 SURGEON: Woodrow Adkins MD 1st AST: Marlon Schofield MD ATTENDING PROVIDER: Woodrow Adkins MD PREOPERATIVE DIAGNOSIS: 1. Right auricular squamous cell carcinoma POSTOPERATIVE DIAGNOSES: 1. Right auricular squamous cell carcinoma PROCEDURES PERFORMED: 1.Right partial auriculectomy 2.NIM facial nerve monitoring 3.Right meatoplasty 4.Right adjacent tissue transfer (5X5 cm) ANESTHESIA: General endotracheal anesthesia. ESTIMATED BLOOD LOSS: 50 mL. BLOOD PRODUCT ADMINISTERED: None. GRAFTS OR IMPLANTS: None. DRAINS: NAVI drain to right neck FINDINGS:2 x 2 cm ulcerative area along the right inferior helix and conchal bowl extending into the distal aspect of the external auditory canal, not involving the posterior skin along the auricle. Multiple skin changes secondary to prior Mohs procedure, infection and baseline lupus. No anterior involvement of the right cheek skin noted on frozen sections overlying the right parotid gland. 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 He was found to have involvement of the cartilage and he was referred to our office for further management. The patient was taken to the operating room for right partial auriculectomy, possible parotidectomy, local flap. The plans, benefits, risks, complications, and alternatives were discussed in detail. An informed consent was obtained. PROCEDURE IN DETAIL: The patient was identified, brought to the operating room and placed on the operating room table and induced with anesthesia. He was intubated using an oral endotracheal tube. This was secured by the Anesthesia Service. Timeout was conducted. Everybody was in agreement. The patient's arms were tucked. NIM facial monitoring probes were placed. He was prepped and draped in the usual sterile fashion. We began by marking out 5mm-1cm margins around the previously resected lesions wound. Next, 1% lidocaine with [id number] epinephrine was injected subcutaneously. A 15 blade scalpel was used to make the incision along the superior aspect of the helix going through the conchal bowl and through the postauricular skin. The incision was then carried inferiorly below the ear lobule and anteriorly in the preauricular crease while sparing the tragal cartilage. This allowed for at least 5 mm margins around the lesion. The lesion was extending into the distal aspect of external auditory meatus. A smaller margin around the lesion was taken in this area. The specimen was then oriented. Bleeding points were controlled. Next, frozen sections were sent from along all of the edges of the lesion including the external auditory canal skin, and the anterior cheek skin overlying the parotid gland. All the frozen sections were found to be negative. At this point, the skin was widely undermined anteriorly, posteriorly and inferiorly. It was noted that the wound could not be closed primarily as it was at least 3 X 3.5 in size. Next, a cervicofacial advancement flap was marked that was at least 5 X 5 cm in size to fill the defect. Incision was made with a 15 blade scalpel. The flap was harvested with the subcutaneous tissue and overlying the SCM. This was then rotated into the defect. The flap was secured to the anterior aspect of the residual pinna with 3.0 vicryl sutures. Next, the flap was secured to the external auditory skin in simple interrupted fashion to keep the meatus open. The postauricular skin was widely undermined and the donor site was closed via primary closure to the rotated skin flap in a layered fashion. A NAVI drain was placed along the posterior aspect of the incision. [place] triangles were excised anteriorly and posteriorly. The skin was closed with 5.0 FAG suture. The patient was turned back to the anesthesia team and extubated in stable condition. All counts were correct at the end of the case. The patient was safely extubated and taken to the PACU. All counts were correct at the end of the case. CONDITION: The patient did tolerate the procedure well.
[2019-01-24] MEDS ORDERED: ENTRESTO (11:26)
[2019-01-24 12:07] LABS: BASOPHILS % 0.4 % (0.0-1.0); EOSINOPHILS # (AUTO) 0.3 (0.0-0.4); EOSINOPHILS % 3.6 % (0.0-6.0); HEMATOCRIT 42.3 % (38.2-49.6); LYMPHOCYTES # (AUTO) 0.8 (1.0-3.2); LYMPHOCYTES % 8.6 % (18.0-39.1); MEAN CORPUSCULAR HEMOGLOBIN 31.6 pg (28-32); MEAN CORPUSCULAR HGB CONC 33.1 g/dL (31-35); MEAN CORPUSCULAR VOLUME 95.5 fL (81-99); MONOCYTES # (AUTO) 0.6 (0.2-0.8); MONOCYTES % 6.7 % (4.4-11.3); NEUTROPHILS # (AUTO) 7.2 (2.1-6.9); NEUTROPHILS % 80.3 % (38.7-80.0); PLATELET COUNT 138 x10e3/uL (140-360); RED BLOOD COUNT 4.43 x10e6/uL (4.3-5.7); RED CELL DISTRIBUTION WIDTH 12.9 % (11.7-14.4)
[2019-01-24 12:12] LABS: INR 4.22
[2019-01-24 12:13] LABS: PARTIAL THROMBOPLASTIN TIME 73.4 seconds (23.8-35.5)
[2019-01-24 12:19] LABS: PROTHROMBIN TIME 41.5 seconds (11.9-14.5)
[2019-01-24 12:20] LABS: ALANINE AMINOTRANSFERASE 12 IU/L (0-55); ALBUMIN 3.3 g/dL (3.5-5.0); ALBUMIN/GLOBULIN RATIO 0.8 (0.8-2.0); ALKALINE PHOSPHATASE 81 IU/L (40-150); ANION GAP 13.6 mmol/L (8-16); BLOOD UREA NITROGEN 14 mg/dL (7-26); BUN/CREATININE RATIO 18 (6-25); CALCIUM 9.5 mg/dL (8.4-10.2); CARBON DIOXIDE 24 mmol/L (22-29); CHLORIDE 99 mmol/L (98-107); CREATINE KINASE 48 IU/L (30-200); CREATININE, SERUM 0.79 mg/dL (0.72-1.25); EST GLOMERULAR FILTRATION RATE > 60 ML/MIN (60-); GLUCOSE 135 mg/dL (74-118); POTASSIUM 3.6 mmol/L (3.5-5.1); SODIUM 133 mmol/L (136-145)
--- NOTE | 2019-01-24 12:27 | Diagnostic Imaging Report ---
EXAMINATION: CHEST 2 VIEWS INDICATION: Weakness, dizziness. COMPARISON: None FINDINGS: TUBES and LINES: Left-sided AICD device with multiple leads overlying the right atrium, right ventricle, and coronary sinus. LUNGS: Lungs are moderately inflated. Lungs are clear. There is no evidence of pneumonia or pulmonary edema. PLEURA: No pleural effusion or pneumothorax. HEART AND MEDIASTINUM: The cardiomediastinal silhouette is unremarkable. There are atherosclerotic calcifications within the aorta. BONES AND SOFT TISSUES: Moderate anterior wedge compression deformity of L1. UPPER ABDOMEN: No free air under the diaphragm. IMPRESSION: No acute radiographic abnormality. Age-indeterminate moderate anterior wedge compression deformity of L1, suggest evaluation for point tenderness at this location. Signed by: Dr. Delma Tolentino MD on 01/24/2019 12:24 PM
[2019-01-24 12:31] LABS: CLARITY,URINE HAZY (CLEAR); COLOR,URINE AMBER (YELLOW); LEUKOCYTE ESTERASE ,URINE TRACE (NEGATIVE); NITRITE,URINE POSITIVE (NEGATIVE); PROTEIN,URINE DIPSTICK 1+ (NEGATIVE)
[2019-01-24 12:32] LABS: BILIRUBIN,URINE 3+ (NEGATIVE); KETONES,URINE TRACE (NEGATIVE); URINE UROBILINOGEN 4 mg/dL (0.2 - 1)
[2019-01-24 12:33] LABS: BACTERIA,URINE MODERATE /HPF; EPITHELIAL CELLS,URINE MODERATE /LPF
--- NOTE | 2019-01-24 12:34 | Diagnostic Imaging Report ---
Exam: Head CT without contrast History: Dizziness, disorientation Comparison studies: None Technique: Axial images were obtained from the skull base to the vertex. Coronal and sagittal images reconstructed from the axial data. Dose modulation, iterative reconstruction, and/or weight based adjustment of the mA/kV was utilized to reduce the radiation dose to as low as reasonably achievable. Radiation dose: Total DLP: 832 mGy*cm. Estimated effective dose: DLP x 0.015 Intravenous contrast: None Findings: Scalp: No abnormalities. Bones: No fractures, blastic or lytic lesions. Brain sulci: Mildly prominent. Ventricles: Mild compensatory dilatation. No hydrocephalus. Extra-axial spaces: Mildly prominent right paramedian retrocerebellar extra-axial space of CSF density most compatible with small arachnoid cyst. No other mass or fluid collection. Parenchyma: No mass, acute hemorrhage or acute cortical infarcts. A few scattered hypodensities in the supratentorial white matter are nonspecific but most compatible with chronic small vessel ischemic changes. Sellar/suprasellar region: No abnormalities. Craniocervical junction: Patent foramen magnum. No Chiari one malformation. Incidental findings: Atherosclerotic calcifications in the carotid siphons. Chronic depressed right lamina appreciable fracture or dehiscence. IMPRESSION: No acute intracranial abnormalities. Chronic findings: 1. Mild generalized brain volume loss. 2. Mild supratentorial chronic microvascular changes. Signed by: Dr. Jai Bal M.D. on 01/24/2019 12:30 PM
[2019-01-24] MEDS ORDERED: CEFTRIAXONE SOD 1 GM VIAL IV ONE (12:45)
--- NOTE | 2019-01-24 12:45 | NUR ---
GIN JARRELL, ENP AT BEDSIDE AT THIS TIME FOR PT EVAL.
[2019-01-24] MEDS ORDERED: SODIUM CHLORIDE 0.9% 50ML 50 ML ONE (13:28)
[2019-01-24] MEDS ORDERED: SODIUM CHLORIDE 0.9% 1000ML 1,000 ML IV ONE (14:15)
[2019-01-24] MEDS ORDERED: ONDANSETRON HCL INJ 2MG/ML 2ML 2 MG/ML VIAL IV PRN (14:15)
[2019-01-24] MEDS ORDERED: DEXTROSE 50% SYRINGE 50 ML IV PRN (14:15)
--- OUTSIDE RECORDS SUMMARY | 2019-01-24 14:23 | XMS REPORT | Clinical Summary ---
Author Author JANETTE [facility] Address Unknown Phone Unavailable Care Team Providers Care Tanning Salon Attendant Name Role Phone Randy Lund PCP Allergies [...] Cindy Schwartz RN 10/16/2018 Telephone Transplant Max Orpoeza MD Awaiting organ transplant status; Dilated cardiomyopathy (HCC) 10/05/2018 Hospital Cardiology Encounter Max Oropeza MD Awaiting organ transplant status; Dilated cardiomyopathy (HCC) 10/05/2018 Hospital Cardiology Encounter Max Oropeza MD Awaiting organ transplant status; Dilated cardiomyopathy (HCC) 10/05/2018 Hospital Respiratory Therapy Encounter Max Oropeza MD Awaiting organ transplant [...] Encounter Max Oropeza MD Manson, Melissa J, [facility] Awaiting organ transplant status; Dilated cardiomyopathy (HCC) [...] Date Type Specialty Collette Steen MD [address] [facility] [address] [place] [address] 02/22/2019 Office Visit Hepatology Procedures [...] CREATININE Routine 10/26/2018 Pre-transplant evaluation 11:14 AM DISTRIBUTION TECHNICIAN for heart transplant CREATININE CLEARANCE Routine 10/26/2018 Pre-transplant evaluation 10:59 AM DISTRIBUTION TECHNICIAN for heart transplant DRUG SCREEN, URINE, Routine 10/24/2018 Pre-transplant evaluation TRANSPLANT 10:10 AM DISTRIBUTION TECHNICIAN for heart transplant PULMONARY FUNCTION - SCAN 10/12/2018 2:50 PM DISTRIBUTION TECHNICIAN CAROTID DOPPLER BILATERAL Routine 10/05/2018 Awaiting organ transplant 10:39 AM DISTRIBUTION TECHNICIAN status Dilated cardiomyopathy (HCC) ARTERIAL DOPPLER LEGS Routine 10/05/2018 Awaiting organ transplant BILATERAL 10:39 AM DISTRIBUTION TECHNICIAN status Dilated cardiomyopathy (HCC) CT CHEST WITHOUT IV Routine 10/05/2018 Awaiting organ transplant CONTRAST 8:44 AM DISTRIBUTION TECHNICIAN status Dilated cardiomyopathy (HCC) CT BRAIN WITHOUT IV Routine 10/05/2018 Awaiting organ transplant CONTRAST 8:44 AM DISTRIBUTION TECHNICIAN status Dilated cardiomyopathy (HCC) CT ABDOMEN WITHOUT IV Routine 10/05/2018 Awaiting organ transplant CONTRAST 8:44 AM DISTRIBUTION TECHNICIAN status Dilated cardiomyopathy (HCC) XR DXA BONE DENSITY STUDY Routine 10/05/2018 7:48 AM DISTRIBUTION TECHNICIAN TRANSFUSION SERVICE 09/22/2018 REPORT - SCAN 6:05 PM DISTRIBUTION TECHNICIAN US RENAL COMPLETE Routine 09/21/2018 Awaiting organ transplant 2:29 PM DISTRIBUTION TECHNICIAN status Dilated cardiomyopathy (HCC) XR CHEST 2 VIEWS Routine 09/21/2018 Awaiting organ transplant 1:21 PM DISTRIBUTION TECHNICIAN status Dilated cardiomyopathy (HCC) VARICELLA ZOSTER Routine 09/21/2018 Awaiting organ transplant ANTIBODY, IGG 11:31 AM DISTRIBUTION TECHNICIAN status Dilated cardiomyopathy (HCC) T SPOT TB Routine 09/21/2018 Awaiting organ transplant 10:37 AM DISTRIBUTION TECHNICIAN status Dilated cardiomyopathy (HCC) AB SPECIFICITY CLASS II Routine 09/21/2018 Awaiting organ transplant 10:01 AM DISTRIBUTION TECHNICIAN status Dilated cardiomyopathy (HCC) AB SPECIFICITY CLASS I Routine 09/21/2018 Awaiting organ transplant 10:01 AM DISTRIBUTION TECHNICIAN status Dilated cardiomyopathy (HCC) PROTEIN ELECTROPHORESIS, AP Routine 09/21/2018 Awaiting organ transplant SERUM 10:01 AM DISTRIBUTION TECHNICIAN status FLOW PRA CLASS II WITH Routine 09/21/2018 Awaiting organ transplant REFLEX TO ANTIBODY 10:01 AM DISTRIBUTION TECHNICIAN status SPECIFICITY Dilated cardiomyopathy (HCC) FLOW PRA CLASS I WITH Routine 09/21/2018 Awaiting organ transplant REFLEX TO ANTIBODY 10:01 AM DISTRIBUTION TECHNICIAN status SPECIFICITY Dilated cardiomyopathy (HCC) TOXOPLASMA GONDII Routine 09/21/2018 Awaiting organ transplant ANTIBODY, IGM 10:01 AM DISTRIBUTION TECHNICIAN status Dilated cardiomyopathy (HCC) TOXOPLASMA GONDII Routine 09/21/2018 Awaiting organ transplant ANTIBODY, IGG 10:01 AM DISTRIBUTION TECHNICIAN status Dilated cardiomyopathy (HCC) RPR Routine 09/21/2018 Awaiting organ transplant 10:01 AM DISTRIBUTION TECHNICIAN status Dilated cardiomyopathy (HCC) HIV-1 ANTIGEN WITH Routine 09/21/2018 Awaiting organ transplant HIV-1/2 ANTIBODY 10:01 AM DISTRIBUTION TECHNICIAN status Dilated cardiomyopathy (HCC) HERPES VIRUS ANTIBODY, Routine 09/21/2018 Awaiting organ transplant IGM 10:01 AM DISTRIBUTION TECHNICIAN status Dilated cardiomyopathy (HCC) HERPES VIRUS ANTIBODY, Routine 09/21/2018 Awaiting organ transplant IGG 10:01 AM DISTRIBUTION TECHNICIAN status Dilated cardiomyopathy (HCC) EBV ANTIBODY, IGM Routine 09/21/2018 Awaiting organ transplant 10:01 AM DISTRIBUTION TECHNICIAN status Dilated cardiomyopathy (HCC) EBV ANTIBODY, IGG Routine 09/21/2018 Awaiting organ transplant 10:01 AM DISTRIBUTION TECHNICIAN status Dilated cardiomyopathy (HCC) CYTOMEGALOVIRUS ANTIBODY, Routine 09/21/2018 Awaiting organ transplant IGM 10:01 AM DISTRIBUTION TECHNICIAN status Dilated cardiomyopathy (HCC) CYTOMEGALOVIRUS ANTIBODY, Routine 09/21/2018 Awaiting organ transplant IGG 10:01 AM DISTRIBUTION TECHNICIAN status Dilated cardiomyopathy (HCC) ANTI-NUCLEAR ANTIBODY Routine 09/21/2018 Awaiting organ transplant (FRANC) 10:01 AM DISTRIBUTION TECHNICIAN status Dilated cardiomyopathy (HCC) VITAMIN D, 25-HYDROXY Routine 09/21/2018 Awaiting organ transplant 10:01 AM DISTRIBUTION TECHNICIAN status Dilated cardiomyopathy (HCC) URIC ACID Routine 09/21/2018 Awaiting organ transplant 10:01 AM DISTRIBUTION TECHNICIAN status Dilated cardiomyopathy (HCC) TSH Routine 09/21/2018 Awaiting organ transplant 10:01 AM DISTRIBUTION TECHNICIAN status Dilated cardiomyopathy (HCC) TRANSFERRIN Routine 09/21/2018 Awaiting organ transplant 10:01 AM DISTRIBUTION TECHNICIAN status Dilated cardiomyopathy (HCC) T4, FREE Routine 09/21/2018 Awaiting organ transplant 10:01 AM DISTRIBUTION TECHNICIAN status Dilated cardiomyopathy (HCC) PSA Routine 09/21/2018 Awaiting organ transplant 10:01 AM DISTRIBUTION TECHNICIAN status Dilated cardiomyopathy (HCC) PREALBUMIN Routine 09/21/2018 Awaiting organ transplant 10:01 AM DISTRIBUTION TECHNICIAN status Dilated cardiomyopathy (HCC) PHOSPHORUS Routine 09/21/2018 Awaiting organ transplant 10:01 AM DISTRIBUTION TECHNICIAN status Dilated cardiomyopathy (HCC) MAGNESIUM Routine 09/21/2018 Awaiting organ transplant 10:01 AM DISTRIBUTION TECHNICIAN status Dilated cardiomyopathy (HCC) LIPID PANEL Routine 09/21/2018 Awaiting organ transplant 10:01 AM DISTRIBUTION TECHNICIAN status Dilated cardiomyopathy (HCC) LIPASE Routine 09/21/2018 Awaiting organ transplant 10:01 AM DISTRIBUTION TECHNICIAN status Dilated cardiomyopathy (HCC) LACTATE DEHYDROGENASE Routine 09/21/2018 Awaiting organ transplant (LDH) 10:01 AM DISTRIBUTION TECHNICIAN status Dilated cardiomyopathy (HCC) IRON, SERUM Routine 09/21/2018 Awaiting organ transplant 10:01 AM DISTRIBUTION TECHNICIAN status Dilated cardiomyopathy (HCC) HEPATITIS C ANTIBODY Routine 09/21/2018 Awaiting organ transplant 10:01 AM DISTRIBUTION TECHNICIAN status Dilated cardiomyopathy (HCC) HEPATITIS B SURFACE Routine 09/21/2018 Awaiting organ transplant ANTIGEN 10:01 AM DISTRIBUTION TECHNICIAN status Dilated cardiomyopathy (HCC) HEPATITIS B E ANTIGEN Routine 09/21/2018 Awaiting organ transplant 10:01 AM DISTRIBUTION TECHNICIAN status Dilated cardiomyopathy (HCC) HEPATITIS B CORE Routine 09/21/2018 Awaiting organ transplant ANTIBODY, TOTAL 10:01 AM DISTRIBUTION TECHNICIAN status Dilated cardiomyopathy (HCC) HEPATITIS B CORE Routine 09/21/2018 Awaiting organ transplant ANTIBODY, IGM 10:01 AM DISTRIBUTION TECHNICIAN status Dilated cardiomyopathy (HCC) HEPATITIS A ANTIBODY, IGM Routine 09/21/2018 Awaiting organ transplant 10:01 AM DISTRIBUTION TECHNICIAN status Dilated cardiomyopathy (HCC) HEPATITIS A ANTIBODY, IGG Routine 09/21/2018 Awaiting organ transplant 10:01 AM DISTRIBUTION TECHNICIAN status Dilated cardiomyopathy (HCC) HEPATIC FUNCTION PANEL Routine 09/21/2018 Awaiting organ transplant 10:01 AM DISTRIBUTION TECHNICIAN status Dilated cardiomyopathy (HCC) HEMOGLOBIN A1C Routine 09/21/2018 Awaiting organ transplant 10:01 AM DISTRIBUTION TECHNICIAN status Dilated cardiomyopathy (HCC) GAMMA GLUTAMYL Routine 09/21/2018 Awaiting organ transplant TRANSFERASE (GGT) 10:01 AM DISTRIBUTION TECHNICIAN status Dilated cardiomyopathy (HCC) FERRITIN Routine 09/21/2018 Awaiting organ transplant 10:01 AM DISTRIBUTION TECHNICIAN status Dilated cardiomyopathy (HCC) B-TYPE NATRIURETIC FACTOR Routine 09/21/2018 Awaiting organ transplant (BNP) 10:01 AM DISTRIBUTION TECHNICIAN status Dilated cardiomyopathy (HCC) BASIC METABOLIC PANEL (7) Routine 09/21/2018 Awaiting organ transplant 10:01 AM DISTRIBUTION TECHNICIAN status Dilated cardiomyopathy (HCC) ECG 12-LEAD Routine 09/21/2018 9:52 AM DISTRIBUTION TECHNICIAN Procedure Note - Interface, External Ris In - 09/21/2018 8:51 AM DISTRIBUTION TECHNICIAN Ventricula r Rate 70 BPM Atrial Rate 69 BPM QRS Duration 172 ms Q-T Interval 504 ms QTC Calculatio n(Bazett) 544 ms R [place] -31 degrees T [place] 102 degrees Ventricul ar-paced rhythm Biventricu lar pacemaker detected Abnormal ECG No previous ECGs available ECG 12-LEAD Routine 09/21/2018 Awaiting organ transplant 9:52 AM DISTRIBUTION TECHNICIAN status Dilated cardiomyopathy (HCC) PT/APTT Routine 09/21/2018 Awaiting organ transplant 9:02 AM DISTRIBUTION TECHNICIAN status Dilated cardiomyopathy (HCC) URINALYSIS W/ MICROSCOPIC Routine 09/21/2018 Awaiting organ transplant 9:01 AM DISTRIBUTION TECHNICIAN status Dilated cardiomyopathy (HCC) HLA TYPING CII Routine 09/21/2018 Awaiting organ transplant 8:20 AM DISTRIBUTION TECHNICIAN status Dilated cardiomyopathy (HCC) HLA TYPING CI Routine 09/21/2018 Awaiting organ transplant 8:20 AM DISTRIBUTION TECHNICIAN status Dilated cardiomyopathy (HCC) CBC W/PLT COUNT & AUTO Routine 09/21/2018 Awaiting organ transplant DIFFERENTIAL 8:19 AM DISTRIBUTION TECHNICIAN status Dilated cardiomyopathy (HCC) DIRECT AHG (DEEPA)/DIRECT Routine 09/21/2018 Awaiting organ transplant CLAU 8:19 AM DISTRIBUTION TECHNICIAN status Dilated cardiomyopathy (HCC) TYPE AND SCREEN, Routine 09/21/2018 Awaiting organ transplant AUTOMATED 8:19 AM DISTRIBUTION TECHNICIAN status Dilated cardiomyopathy (HCC) RETICULOCYTE COUNT Routine 09/21/2018 Awaiting organ transplant 8:19 AM DISTRIBUTION TECHNICIAN status Dilated cardiomyopathy (HCC) CBC W/PLT COUNT & AUTO Routine 09/21/2018 Awaiting organ transplant DIFFERENTIAL 8:19 AM DISTRIBUTION TECHNICIAN status Dilated cardiomyopathy (HCC) MAXIMAL VO2 CARDIOPULM [...] 9.9 mIU/mL Specimen Narrative Performed At Performed at:[address] [place] [address] [facility] [address] [place], [id number] Rim Roller Setter: Chapo Al MD, Phone:[phone] Performing Organization Address City/State/Zipcode Phone Number [facility] * Hepatitis B core antibody, total (01/04/2019 10:48 AM CDT) Only the most recent of 2 results within the time period is included. Hep B Core Ab, Tot Negative Negative [facility] 1 Specimen Narrative Performed At Performed at:[address] [place] [address] [facility] [address] [place], [place] [id number] Rim Roller Setter: Chapo Al MD, Phone:[phone] Performing Organization Address City/[facility] Phone Number [facility] 1 * Hepatitis B surface antigen (01/04/2019 10:48 AM CDT) Only the most recent of 2 results within the time period is included. HBsAg Screen Negative Negative [facility] 1 Specimen Narrative Performed At Performed at:[address] [place] [id number] Rim Roller Setter: Chapo Al MD, Phone:[phone] Performing Organization Address [facility] Phone Number [facility] 1 * Hepatitis A antibody, total ([facility] Only) (12/29/2018 10:50 AM CDT) Hep A Ab, Total Positive (A) Negative [facility] 1 Specimen Blood Narrative Performed At Performed at:[address] [place], [place] [id number] Rim Roller Setter: Chapo Al MD, Phone:[phone] Performing Organization Address [facility] Phone Number [facility] 1 * Hepatitis B Viral DNA, [...] IU/mL. Specimen Blood Narrative Performed At Performed at:[address] [place] [address] [address] [place], [id number] Rim Roller Setter: Althea Cee MD, Phone:[phone] Performing Organization Address City/[facility] Phone Number [facility] 1 * Hemochromatosis by PCR (12/29/2018 [...] are carriers of HH.The mutations analyzed by [facility] are most common in the population.Because this [...] Prev Med 16:134-140. Heather Farrell (2002). Lancet 360(7137):1673-26. Lissette Walsh et al. (2002). Blood Cells, Molecules. and Diseases.293):418-432. Windy Smith et al. (2003). [place] Med. 5(1):1-8. Enid WOLF et al. (2003). [place] Med. 5(4):304-10. This test was developed and its performance characteristics determined by [facility]. It has not been cleared or approved by the Food and Drug Administration. Genetic counselors are available for health care providers to discuss results at [phone]. Aubrey Atwood, PhD, [facility] Regi Lomas, PhD, [facility] John HawkS., PhD, [facility] Joyce Hinds, PhD, [facility] Darryl Foster, PhD, [facility] Jose Benson, PhD, [facility] Specimen Blood Narrative Performed At Performed at:02 - [facility] RTP [facility] [address], [facility] [place], [id number] Rim Roller Setter: Ubaldo Miles MD, Phone:[phone] Performing Organization Address City/[facility] Phone Number [facility] 2 * Alpha fetoprotein (AFP), tumor marker [...] Blood Narrative Performed At Performed at: - [facility] [address] [place], [id number] Rim Roller Setter: Cahpo Al MD, Phone:[phone] Performing Organization Address [facility] Phone Number [facility] 1 * Hepatitis C genotype (12/29/2018 [...] Specimen Blood Narrative Performed At Performed at: [facility] [address] [facility], [id number] Rim Roller Setter: Althea Cee MD, Phone:[phone] Performing Organization Address City/[facility] Phone Number [facility] 1 * Hepatitis C RNA, Quantitative (12/29/2018 10:49 AM CDT) Hepatitis C Quantitation HCV Not Detected IU/mL [facility] Test Information: CommentComment: The [facility] 1 quantitative range of this assay is 15 IU/mL to 100 million IU/mL. Specimen Blood Narrative Performed At Performed at: - [facility] [address] [place], [id number] Rim Roller Setter: Althea Cee MD, Phone:[phone] Performing Organization Address [facility] Phone Number [facility] 1 * Pro-time/INR [...] Blood Narrative Performed At Performed at: - [facility] [address] [place], [id number] Rim Roller Setter: Chapo Al MD, Phone:[phone] Performing Organization Address [facility] Phone Number [facility] 1 * CBC [...] 1 Specimen Blood Narrative Performed At Performed at:[address] [place], [place] [id number] Rim Roller Setter: Chapo Al MD, Phone:[phone] Performing Organization Address [facility] Phone Number [facility] 1 * Hepatic function panel (12/29/2018 10:49 [...] 1 Specimen Blood Narrative Performed At Performed at:[address] [place], [place] [id number] Rim Roller Setter: Chapo Al MD, Phone:[phone] Performing Organization Address [facility] Phone Number [facility] 1 * Basic Metabolic Panel (12/29/2018 10:49 [...] Blood Narrative Performed At Performed at:01 - [facility] [address] [place], [id number] Rim Roller Setter: Chapo Al MD, Phone:[phone] Performing Organization Address City/State/Zipcode Phone Number [facility] 1 * US abdominal with doppler (12/29/2018 8:38 AM CDT) Specimen Narrative Performed At Addendum [facility] REPORT STATUS:A Innumerable tiny reticular and nodular echogenic foci in the spleen could reflect the presence of [place] bodies. Infiltrative process is considered much less likely. This finding is amenable to follow-up. Signed: Nicole Mchugh MD Report Verified Date/Time:12/29/2018 14:06:18 Reading Location: [address] Radiology Reading Room Addendum Ends FINAL [...] MD Report Verified Date/Time:12/29/2018 11:17:46 Reading Location: [address] Radiology Reading Room Procedure Note Interface, External Ris In - 12/29/2018 2:08 PM CDT Addendum Begins REPORT STATUS:A Innumerable tiny reticular and nodular echogenic foci in the spleen could reflect the presence of [place] bodies. Infiltrative process is considered much less likely. This finding is amenable to follow-up. Signed: Nicole Mchugh MD Report Verified Date/Time: 12/29/2018 14:06:18 Reading Location: [address] Radiology Reading Room Addendum Ends FINAL [...] Report Verified Date/Time: 12/29/2018 11:17:46 Reading Location: [address] Radiology Reading Room Performing Organization Address City/State/Zipcode Phone Number [facility] * EKG-SCANNED (12/20/2018 3:41 PM CDT) Narrative Performed At * Miscellaneous lab test (12/14/2018 2:07 PM CDT) Scan Result [facility] Specimen Blood Narrative Performed At Performing Organization Address City/State/Zipcode Phone Number [facility] [address] [place], [place] * Creatinine (Serum) (10/26/2018 11:14 AM DISTRIBUTION TECHNICIAN) Creatinine 0.86 0.57 - 1.25 mg/dL [facility] EGFR 90Comment: ESTIMATED GFR IS mL/min/1.73 sq m [facility] NOT ACCURATE CREATININE [facility] CLEARANCE IN PREDICTING GLOMERULAR FILTRATION RATE. ESTIMATED GFR IS NOT APPLICABLE FOR DIALYSIS PATIENTS. Specimen Blood Performing Organization Address [facility] Cent[facility] Phone Number [facility] [address] [place] [phone] * Creatinine clearance (10/26/2018 10:59 AM DISTRIBUTION TECHNICIAN) Creatinine Clearance 68.7 (L) 70.0 - 140.0 mL/min [facility] Volume, Urine 1,575 ml [facility] Creatinine, Ur 64.5 mg/dL [facility] Patient Height 178.0 cm [facility] Patient Weight 86.200 kg [facility] Specimen Urine Performing Organization Address City/[facility]/Zipcode Phone Number [facility] [address] [place] [address] [facility] * Drug screen, urine, transplant (10/24/2018 10:10 AM DISTRIBUTION TECHNICIAN) Specimen Urine Narrative Performed At Performing Organization Address City/State/Zipcode Phone Number [facility] JOYCE [address] [place] [address] * PULMONARY FUNCTION - SCAN (10/12/2018 2:50 PM DISTRIBUTION TECHNICIAN) Narrative Performed At * Arterial doppler legs bilateral (10/05/2018 10:39 AM DISTRIBUTION TECHNICIAN) Ejection Fraction [facility] MKCKESSON CPACS Specimen Impressions Performed At Right Impression [facility] 1. The posterior tibial and [...] + + + + +---- + !Prox FINANCIAL AIDS OFFICER ! !16.5!!Monop hasic! + + + + +---- + !Mid FINANCIAL AIDS OFFICER ! !10.2 !!Monophasic ! + + + + +---- + !Dist FINANCIAL AIDS OFFICER ! !0 !!Absent ! + + + [...] PV LAB - Lower Extremity Arterial Duplex [facility] Demographics MKCKESSON [facility] Patient Name KOREY VIZCARRA Date of Study10/05/2018 BANDAR [id number] [id number] Visit Number [id number] Gender Male Accession Number [id number] [facility] of [facility]1955 [facility] Natividad Jean Interpreting Kourtney Peña MD RVSPhysician [...] External Ris In - 10/05/2018 3:22 PM DISTRIBUTION TECHNICIAN PV LAB - Lower Extremity Arterial Duplex Demographics Patient Name KOREY VIZCARRA Date of Study 10/05/2018 BANDAR Age 63 Visit Number [id number] Gender Male Accession Number [id number] Date of 1955 Referring Sandip Santana Room Number [facility] OPT Physician John Choker Setter Daniel Jean Interpreting Kourtney Peña MD [...] + + + + + + !Prox FINANCIAL AIDS OFFICER ! !16.5 ! !Monophasic ! + + + + + + !Mid FINANCIAL AIDS OFFICER ! !10.2 ! !Monophasic ! + + + + + + !Dist FINANCIAL AIDS OFFICER ! !0 ! !Absent ! + + [...] + Performing Organization Address City/State/Zipcode Phone Number [facility] * Carotid Doppler Bilateral (10/05/2018 10:39 AM DISTRIBUTION TECHNICIAN) Ejection Fraction [facility] [employer] [facility]OR [facility] Specimen Impressions Performed At Right Impression [facility] [employer] 1. There is <50% diameter reduction (approximately 24% by 2-D measurement) [employer] in the internal carotid artery with a [...] At PV LAB - Carotid Duplex Study [facility] Demographics [facility] Patient Name KOREY VIZCARRA Date of Study10/05/2018 BANDAR [id number] [id number] Visit Number [id number] Gender Male Accession Number [id number] Date of Birth1955 [facility] OPT PhysicianM. SonographSushila Jean Interpreting Kourtney [...] External Ris In - 10/05/2018 3:22 PM DISTRIBUTION TECHNICIAN PV LAB - Carotid Duplex Study Demographics Patient Name KOREY VIZCARRA Date of Study 10/05/2018 BANDAR Age 63 Visit Number [id number] Gender Male Accession Number [id number] Date of 1955 Referring Sandip Santana Room Number [facility] OPT Physician John Choker Setter Daniel Jean Interpreting Kourtney Peña MD [...] Brain without IV Contrast (10/05/2018 8:44 AM DISTRIBUTION TECHNICIAN) Specimen Narrative Performed At FINAL REPORT [facility] CT Head without contrast CLINICAL HISTORY: Heart [...] MD Report Verified Date/Time:10/05/2018 09:02:45 Reading Location: [address] Neuro Reading Room Procedure Note Interface, External Ris In - 10/05/2018 9:04 AM DISTRIBUTION TECHNICIAN FINAL REPORT CT Head without contrast CLINICAL [...] Report Verified Date/Time: 10/05/2018 09:02:45 Reading Location: [facility] [id number] Neuro Reading Room Performing Organization Address City/State/Zipcode Phone Number [facility] * CT Chest without IV Contrast (10/05/2018 8:44 AM DISTRIBUTION TECHNICIAN) Specimen Narrative Performed At FINAL REPORT [facility] TECHNIQUE: CT of the chest and abdomen [...] MD Report Verified Date/Time:10/05/2018 09:13:46 Reading Location: [address] Radiology Reading Room Procedure Note Interface, External Ris In - 10/05/2018 9:15 AM DISTRIBUTION TECHNICIAN FINAL REPORT TECHNIQUE: CT of the chest [...] Report Verified Date/Time: 10/05/2018 09:13:46 Reading Location: [address] Radiology Reading Room Performing Organization Address City/State/Zipcode Phone Number [facility] * CT Abdomen without Contrast (10/05/2018 8:44 AM DISTRIBUTION TECHNICIAN) Specimen Narrative Performed At FINAL REPORT [facility] TECHNIQUE: CT of the chest and abdomen [...] MD Report Verified Date/Time:10/05/2018 09:13:46 Reading Location: [address] Radiology Reading Room Procedure Note Interface, External Ris In - 10/05/2018 9:15 AM DISTRIBUTION TECHNICIAN FINAL REPORT TECHNIQUE: CT of the chest [...] Report Verified Date/Time: 10/05/2018 09:13:46 Reading Location: [address] Radiology Reading Room Performing Organization Address City/[facility] Cent[facility]ode Phone Number GE RIS * XR dxa bone density study (10/05/2018 7:48 AM DISTRIBUTION TECHNICIAN) Specimen Narrative Performed At FINAL REPORT [facility] RAD, BONE DENSITY STUDY CLINICAL HISTORY: Heart [...] MD Report Verified Date/Time:10/05/2018 08:15:26 Reading Location: [facility] Radiology Reading Room Procedure Note Interface, External Ris In - 10/05/2018 8:17 AM DISTRIBUTION TECHNICIAN FINAL REPORT RAD, BONE DENSITY STUDY CLINICAL [...] Verified Date/Time: 10/05/2018 08:15:26 Reading Location: [facility] Reading Room Performing Organization Address City/State/[facility] Cent[facility]ode Phone Number GE RIS * TRANSFUSION SERVICE REPORT - SCAN (09/22/2018 6:05 PM DISTRIBUTION TECHNICIAN) Narrative Performed At * US Renal Complete (09/21/2018 2:29 PM DISTRIBUTION TECHNICIAN) Specimen Narrative Performed At FINAL REPORT [facility] Renal ultrasound. Clinical History: Heart transplant evaluation [...] MD Report Verified Date/Time:09/21/2018 14:34:01 Reading Location: [address] Ultrasound Reading Room Procedure Note Interface, External Ris In - 09/21/2018 2:36 PM DISTRIBUTION TECHNICIAN FINAL REPORT Renal ultrasound. Clinical History: Heart [...] Date/Time: 09/21/2018 14:34:01 Reading Location: [place] [id number] Ultrasound Reading Room Performing Organization Address [facility] Phone Number GE RIS * XR Chest 2 views (09/21/2018 1:21 PM DISTRIBUTION TECHNICIAN) Specimen Narrative Performed At FINAL REPORT [facility] [...] MD Report Verified Date/Time:09/21/2018 13:21:28 Reading Location: [address] Radiology Reading Room Procedure Note Interface, External Ris In - 09/21/2018 1:25 PM DISTRIBUTION TECHNICIAN FINAL REPORT Chest, PA and lateral. History: Heart transplant evaluation. Comparison: 12/05/2017. Discussion: Left AICD present. Cardiomegaly and thoracic aortic ectasia similar to previous. The lungs are clear without evidence of consolidation or effusion. There are no acute osseous abnormalities. The soft tissues are unremarkable. IMPRESSION: No acute cardiopulmonary abnormality. Signed: Elizabeth Sanders MD Report Verified Date/Time: 09/21/2018 13:21:28 Reading Location: [address] Radiology Reading Room Performing Organization Address [facility] Phone Number GE RIS * Varicella zoster antibody, IgG (09/21/2018 11:31 AM DISTRIBUTION TECHNICIAN) Varicella IgG 4.0 [facility] Specimen Blood Narrative Performed At VARICELLA ZOSTER RESULT INTERPRETATIONS: [facility] <=0.8 AlNonreactive:Presumed non-immune to VZV [facility] 0.9-1.0 AlEquivocal >=1.1 AlReactive:Presumed immune to VZV Performing Organization Address [facility] Centercode Phone Number [facility] [address] [place], [place] [phone] [facility] * T Spot TB (09/21/2018 10:37 AM DISTRIBUTION TECHNICIAN) T-Spot TB Negative [facility] Neg Ctrl Spot Count 0 [facility] Panel A Spot 0 [facility] Panel B Spot 0 [facility] Pos Ctrl Spot Ct 0 [facility] Scan Result [facility] Specimen Blood Narrative Performed At Performing Organization Address City/State/Zipcode Phone Number [facility] [address] [facility], [place] [address] LABORATORIES 100 * FLOW PRA CLASS II WITH REFLEX TO ANTIBODY SPECIFICITY (09/21/2018 10:01 AM DISTRIBUTION TECHNICIAN) Flow Class II Percent 5 [facility] Positive Flow Class Report [facility] Comments Specimen Blood Narrative Performed At Disclaimer: [facility] This test was developed and its performance characteristics determined by the [facility] Laboratory. It has not been cleared or [...] clinical laboratory testing. Performing Organization Address City/[facility] Centercode Phone Number [facility] ONE Konrad Yang, MS: [id number], [place] [address] CLIA#[id number] CAP#[id number] UNOS#[id number] * FLOW PRA CLASS I WITH REFLEX TO ANTIBODY SPECIFICITY (09/21/2018 10:01 AM DISTRIBUTION TECHNICIAN) Flow Class I Percent 11 [facility] Positive Flow Class Report [facility] Comments Specimen Blood Narrative Performed At Disclaimer: [facility] This test was developed and its performance characteristics determined by the [facility] Laboratory. It has not been cleared or [...] complexity clinical laboratory testing. Performing Organization Address City/State/[facility] Centercode Phone Number [facility] ONE Konrad Yang, MS: [id number], [place] [address] CLIA#[id number] CAP#[id number] UN[facility]#[id number] * Hepatitis A antibody, IgG (09/21/2018 10:01 AM DISTRIBUTION TECHNICIAN) Hep A IgG Reactive (A) Nonreactive [facility] Specimen Blood Performing Organization Address City/[facility]/Zipcode Phone Number [facility] [address], [place] [phone] [facility] * AB SPECIFICITY CLASS II (09/21/2018 10:01 AM DISTRIBUTION TECHNICIAN) AB Specificity Class II NO CLASS II ANTIBODY DETECTED [facility] WITH MFIs > 4000 AB Specificity Titr Class [facility] Report Specimen Blood Narrative Performed At Disclaimer: [facility] This test was developed and its performance characteristics determined by the [facility] Laboratory. It has not been cleared or [...] complexity clinical laboratory testing. Performing Organization Address [facility] Phone Number [facility] ONE Konrad Yang, MS: [id number], [place] [address] CLIA#[id number] CAP#[id number] UNOS#[id number] * AB SPECIFICITY CLASS I (09/21/2018 10:01 AM DISTRIBUTION TECHNICIAN) AB Specificity Class I A:32 [facility] AB Specificity Titr Class MFIs > 4000 [facility] Report Specimen Blood Narrative Performed At Disclaimer: [facility] This test was developed and its performance characteristics determined by the [facility] Laboratory. It has not been cleared or [...] complexity clinical laboratory testing. Performing Organization Address [facility]/State/Zipcode Phone Number [facility] ONE [employer] [facility] [place], [place]: [id number], [place] [id number] CLIA#[id number] CAP#[id number] UNOS#[id number] * HIV-1 Antigen with HIV-1/2 Antibody (09/21/2018 10:01 AM DISTRIBUTION TECHNICIAN) HIV-1 Antigen with HIV NON-REACTIVE Nonreactive [facility] 1&2 Antibody [facility] Specimen Blood Performing Organization Address City/State/Zipcode Phone Number [address] [address] [facility] * Hepatitis C antibody (09/21/2018 10:01 AM DISTRIBUTION TECHNICIAN) Hepatitis C Ab Reactive (A) Nonreactive [facility] Specimen Blood Performing Organization Address City/[facility]/Zipcode Phone Number [address] [address] [facility] * CMV antibody, IgM (09/21/2018 10:01 AM DISTRIBUTION TECHNICIAN) CMV IGM Negative Negative, Equivocal [facility] Specimen Blood Narrative Performed At CMV IgM Result Interpretation: [facility] </=0.8 Al Negative [facility] 0.9-1.0 Al Equivocal >/=1.1 Al Positive Performing Organization Address City/[facility]/Zipcode Phone Number [address] [address] [facility] * Hepatitis A antibody, IgM (09/21/2018 10:01 AM DISTRIBUTION TECHNICIAN) Hep A IgM HEPATITIS A TEST NEGATIVE Nonreactive [facility] Specimen Blood Performing Organization Address City/[facility]/Zipcode Phone Number [address] [address] [facility] * Toxoplasma gondii antibody, IgM (09/21/2018 10:01 AM DISTRIBUTION TECHNICIAN) Toxoplasma gondii IgM Negative [facility] Specimen Blood Performing Organization Address City/State/Zipcode Phone Number [facility] [address] * Herpes virus, IgM (09/21/2018 10:01 AM DISTRIBUTION TECHNICIAN) Herpes Virus IGM Negative [facility] Specimen Blood Narrative Performed At HSV IgM 1=NEGATIVE [facility] HSV IgM 2=NEGATIVE [facility] Performing Organization Address City/[facility] Centercode Phone Number [address] * Hepatitis B core antibody, IgM (09/21/2018 10:01 AM DISTRIBUTION TECHNICIAN) Hep B C IgM NON-REACTIVE Nonreactive [facility] Specimen Blood Performing Organization Address [facility]y Phone Number [address] * EBV-VCA antibody, IgM (09/21/2018 10:01 AM DISTRIBUTION TECHNICIAN) STAN EDGAR VIRAL CAPSID Negative Negative, Equivocal [facility] ANTIGEN IGM [facility] Specimen Blood Narrative Performed At Stan Edgar Viral Capsid Antigen IgM Result Interpretation: [facility] </=0.8 Al Negative [facility] 0.9-1.0 Al Equivocal >/=1.1 Al Positive Performing Organization Address [facility] Phone Number [address] * EBV-VCA antibody, IgG (09/21/2018 10:01 AM DISTRIBUTION TECHNICIAN) STAN EDGAR VIRAL CAPSID Positive (A) Negative, Equivocal [facility] ANTIGEN IGG [facility] Specimen Blood Narrative Performed At Stan Edgar Viral Capsid Antigen IgG Result Interpretation: [facility] </=0.8 Al Negative [facility] 0.9-1.0 Al Equivocal >/=1.1 Al Positive Performing Organization Address [facility] Centercode Phone Number [address] [address] [phone] [place] [address] * Hepatitis B e antigen (09/21/2018 10:01 AM DISTRIBUTION TECHNICIAN) Hep Be Ag (Antigen) NONREACTIVEComment: REFERENCE [facility]: NONREACTIVE INCORPORATED Specimen Blood Narrative Performed At Performing Lab [facility] *[facility] [address] [place] [address] Katia Mccarty MD Performing Organization Address City/State/Zipcode Phone Number [facility], [address] [place], [place] INCORPORATED [facility] [address] * Vitamin D, 25-Hydroxy (09/21/2018 10:01 AM DISTRIBUTION TECHNICIAN) Vitamin D 25-Hydroxy 33.7 6.6 - 49.9 ng/mL [facility] Specimen Blood Narrative Performed At Effective 07/13/2017: Reference Range Change [facility] New: 6.6-49.9 ng/mL Previous: 13.0-47.8 ng/mL [facility] Recommended Vitamin D Target Range: 30.0-40.0 ng/mL Performing Organization Address [facility] Phone Number [address] * Herpes virus, IgG (09/21/2018 10:01 AM DISTRIBUTION TECHNICIAN) Herpes Virus IGG Positive [facility] Specimen Blood Narrative Performed At [facility] HSV IgG 1=POSITIVE [facility] HSV IgG 2=NEGATIVE Performing Organization Address City/[facility] Phone Number [address] * Toxoplasma gondii antibody, IgG (09/21/2018 10:01 AM DISTRIBUTION TECHNICIAN) TOXOPLASMA GONDII IGG <3.0 <10.0 IU/mL [facility] QUANTITATIVE [facility] Specimen Blood Narrative Performed At Toxoplasma Gondii IgG Result Interpretation: [facility] </=9.9 IU/mLNormal [facility] 10-11 IU/mLEquivocal >/=12 IU/mL Positive Performing Organization Address [facility] Centercode [place] [address] [facility] * RPR (09/21/2018 10:01 AM DISTRIBUTION TECHNICIAN) RPR Nonreactive Nonreactive [facility] Specimen Blood Performing Organization Address City/[facility] Centercode Phone Number [address] [address] [facility] * CMV antibody, IgG (09/21/2018 10:01 AM DISTRIBUTION TECHNICIAN) CYTOMEGALOVIRUS, IGG Positive (A) Negative, Equivocal [facility] Specimen Blood Narrative Performed At CMV IgG Result Interpretation: [facility] </=0.8 Al Negative [facility] 0.9-1.0 Al Equivocal >/=1.1 AlPositive Performing Organization Address [facility] [place] [phone] [place] [address] * FRANC (09/21/2018 10:01 AM DISTRIBUTION TECHNICIAN) FRANC Negative Negative [facility] Specimen Blood Narrative Performed At Test performed by IFA method. [facility] Test performed by IFA method. [facility] Performing Organization Address [facility] [place] [address] [phone] [place] [address] * Uric acid (09/21/2018 10:01 AM DISTRIBUTION TECHNICIAN) Uric Acid 11.7 (H) 2.6 - 7.2 mg/dL [facility] Specimen Blood Performing Organization Address City/[facility]/Zipcode Phone Number [address] [address] [facility] * Transferrin (09/21/2018 10:01 AM DISTRIBUTION TECHNICIAN) Transferrin 283 174 - 382 mg/dL [facility] Specimen Blood Performing Organization Address City/[facility]/Zipcode Phone Number [address] [address] [facility] * TSH (09/21/2018 10:01 AM DISTRIBUTION TECHNICIAN) TSH 1.73 0.35 - 4.94 uIU/mL [facility] Specimen Blood Performing Organization Address [facility] Phone Number [facility] [address] [place] [address] [facility] * T4, free (09/21/2018 10:01 AM DISTRIBUTION TECHNICIAN) Free T4 0.92 0.70 - 1.48 ng/dL [facility] Specimen Blood Performing Organization Address [facility] Phone Number [address] [address] [phone] [place] [address] * Protein electrophoresis, serum (09/21/2018 10:01 AM DISTRIBUTION TECHNICIAN) Albumin Fraction 4.2 3.5 - 5.5 g/dL [facility] Alpha 1 Fraction 0.2 0.2 - 0.4 g/dL [facility] Alpha 2 Fraction 0.7 0.5 - 0.9 g/dL [facility] Beta Fraction 1.6 (H) 0.6 - 1.1 g/dL [facility] Gamma Globulin Fraction 1.4 0.7 - 1.7 g/dL [facility] Interpretation Slight beta-gamma bridging, [facility] suggesting component of mild [facility] hepatic dysfunction. No monoclonal bands detected. Pathologist: Talya Ramirez MD [facility] (electronic signature) [facility] Protein, Total 8.1 6.0 - 8.3 gm/dL [facility] Specimen Blood Performing Organization Address [facility] Phone Number [address] [address] [phone] [place] [address] * PSA (09/21/2018 10:01 AM DISTRIBUTION TECHNICIAN) PSA 0.5 0.0 - 4.0 ng/mL [facility] Specimen Blood Performing Organization Address City/[facility] Centercode Phone Number [address] * Prealbumin (09/21/2018 10:01 AM DISTRIBUTION TECHNICIAN) Prealbumin 25Comment: Specimen slightly 14 - 45 mg/dL [facility] hemolyzed [facility] Specimen Blood Performing Organization Address City/[facility] Centercode Phone Number [address] * Phosphorus (09/21/2018 10:01 AM DISTRIBUTION TECHNICIAN) Phosphorus 3.6 2.3 - 4.7 mg/dL [facility] Specimen Blood Performing Organization Address [facility] Phone Number [address] * Beta Natriuretic Factor (BNP) (09/21/2018 10:01 AM DISTRIBUTION TECHNICIAN) BNP 381 (H) 0 - 100 pg/mL [facility] Specimen Blood Performing Organization Address [facility] Phone Number [address] * Magnesium (09/21/2018 10:01 AM DISTRIBUTION TECHNICIAN) Magnesium 1.3 (L) 1.6 - 2.6 mg/dL [facility] Specimen Blood Performing Organization Address City/[facility] Phone Number [address] * Lipase (09/21/2018 10:01 AM DISTRIBUTION TECHNICIAN) Lipase 87 (H) 8 - 78 U/L [facility] Specimen Blood Performing Organization Address [facility] Phone Number [address] * Lactate dehydrogenase (LDH) (09/21/2018 10:01 AM DISTRIBUTION TECHNICIAN) LDH 237 (H) 125 - 220 U/L [facility] Specimen Blood Performing Organization Address City/[facility] Centercode Phone Number [place] [phone] * Iron, serum (09/21/2018 10:01 AM DISTRIBUTION TECHNICIAN) Iron 315.0 (H) 40.0 - 160.0 ug/dL [facility] Specimen Blood Performing Organization Address City/[facility] Centercode Phone Number [address] [address] [phone] [place] [address] * Hemoglobin A1c (09/21/2018 10:01 AM DISTRIBUTION TECHNICIAN) Hemoglobin A1C 6.3 (H) 4.3 - 6.1 % [facility] Specimen Blood Performing Organization Address [facility] Phone Number [phone] [place] [address] * Gamma Glutamyl Transferase (GGT) (09/21/2018 10:01 AM DISTRIBUTION TECHNICIAN) GGT 115 (H) 9 - 64 U/L [facility] Specimen Blood Performing Organization Address [facility] Phone Number [address] [address] [phone] [place] [address] * Ferritin (09/21/2018 10:01 AM DISTRIBUTION TECHNICIAN) Ferritin 655 (H) 5 - 275 ng/mL [facility] Specimen Blood Performing Organization Address City/[facility] Phone Number [address] [address] [facility] * Lipid panel (FASTING) (09/21/2018 10:01 AM DISTRIBUTION TECHNICIAN) Triglycerides 72 mg/dL [facility] Cholesterol 140 mg/dL [facility] HDL 50 mg/dL [facility] LDL Calculated 76 mg/dL [facility] Specimen Blood Narrative Performed At Triglyceride Reference Range: [facility] Low Risk <150 [facility] [id number] High Risk 200-499 Very High Risk>=500 Cholesterol Reference Range: Low Risk <200 [id number] High Risk>240 HDL Cholesterol Reference Range: Low Risk >=60 High Risk <40 LDL Cholesterol Reference Range: Optimal<100 Near [id number] [id number] Uhww390-031 Very High >=190 Performing Organization Address [facility] Phone Number [facility] [address] [place] [address] MEDICAL CENTER * ECG 12 lead (09/21/2018 9:52 AM DISTRIBUTION TECHNICIAN) Specimen Narrative Performed At Ventricular Rate 70 BPM GE MUSE Atrial Rate 69 BPM QRS Duration 172 ms Q-T Interval 504 ms QTC Calculation(Bazett) 544 ms R [place] -31 degrees T [place] 102 degrees Ventricular-paced rhythm Biventricular pacemaker detected Abnormal ECG No previous ECGs available Confirmed by Josué Galicia ([id number]) on 09/21/2018 3:41:41 PM Procedure Note Interface, External Ris In - 09/21/2018 3:41 PM DISTRIBUTION TECHNICIAN Ventricular Rate 70 BPM Atrial Rate 69 BPM QRS Duration 172 ms Q-T Interval 504 ms QTC Calculation(Bazett) 544 ms R [place] -31 degrees T [place] 102 degrees Ventricular-paced rhythm Biventricular pacemaker detected Abnormal ECG No previous ECGs available Confirmed by Josué Galicia ([id number]) on 09/21/2018 3:41:41 PM Performing Organization Address City/[facility] Phone Number GE MUSE * PT/PTT (09/21/2018 9:02 AM DISTRIBUTION TECHNICIAN) Protime 37.5 (H) 11.7 - 14.7 seconds [facility] INR 3.8 <=5.9 [facility] PTT 48.0 (H) 22.5 - 36.0 seconds [facility] Specimen Blood Narrative Performed At RECOMMENDED COUMADIN/WARFARIN INR THERAPY RANGES [facility] STANDARD DOSE: 2.0 - 3.0 Includes: PROPHYLAXIS for venous thrombosis, [facility] systemic embolization; TREATMENT for venous thrombosis and/or pulmonary embolus. HIGH RISK: Target INR is 2.5-3.5 for patients with mechanical heart valves. Performing Organization Address [facility] Cent[facility] Phone Number [facility] [address] [place] [address] [facility] * Urinalysis w/Microscopic (09/21/2018 9:01 AM DISTRIBUTION TECHNICIAN) Color, UA Yellow [facility] Clarity, UA Clear [facility] Specific [place], UA 1.007 1.001 - 1.035 [facility] pH, UA 6.5 5.0 - 8.0 [facility] Protein, UA Negative Negative [facility] Glucose, UA Negative Negative [facility] Ketones, UA Negative Negative [facility] Bilirubin, UA Negative Negative [facility] Blood, UA Negative Negative [facility] Nitrite, UA Negative Negative [facility] Leukocytes, UA Negative Negative [facility] Urobilinogen, UA 0.2 0.2 - 1.0 mg/dL [facility] RBC, UA <1 /HPF [facility] WBC, UA 0 /HPF [facility] Hyaline Casts, UA 1 /LPF [facility] Specimen Source [facility] Specimen Urine Performing Organization Address City/[facility]/Zipcode Phone Number [facility] [address] [place] [address] [facility] * HLA TYPING CII (09/21/2018 8:20 AM DISTRIBUTION TECHNICIAN) HLA-DR AG1 4 [facility] TEST[facility] HLA-DR AG2 15 [facility] HLA-DR AG3-1 [facility] HLA-DR AG3-2 [facility] TEST[facility] HLA-DR AG4-1 53 [facility] HLA TESTING HLA-DR AG4-2 [facility] TEST[facility] HLA-DR AG5-1 [facility] TEST[facility] HLA-DR AG5-2 51 [facility] TEST[facility] HLA-DQA1 AG 1-1 05 [facility] TEST[facility] HLA-DQA1 AG 1-2 01 [facility] HLA-DQB1 AG 1-1 7 [facility] HLA-DQB1 AG 1-2 6 [facility] HLA-DPA1 AG 1-1 01 [facility] HLA-DPA1 AG 1-2 01 [facility] HLA-DPB1 AG 1-1 04:01 [facility] HLA-DPB1 AG 1-2 04:01 [facility] HLA-AG Notes [facility] HLA-AG Report Comments [facility] Specimen Blood Narrative Performed At Disclaimer: [facility] This test was developed and its performance characteristics determined by the [facility] Laboratory. It has not been cleared or [...] testing. Performing Organization Address City/State/Zipcode Phone Number [facility] ONE [employer] [facility] [place], [place]: [id number], [place] [address] CLIA#[id number] CAP#[id number] [facility]#[id number] * HLA TYPING CI (09/21/2018 8:20 AM DISTRIBUTION TECHNICIAN) HLA-A AG1 2 [facility] HLA-A AG2 3 [facility] HLA-B AG1 65 [facility] TEST[facility] HLA-B AG2 50 [facility] TEST[facility] HLA-C AG1 8 [facility] TEST[facility] HLA-C AG2 6 [facility] TEST[facility] HLA-B BW1 6 [facility] TEST[facility] HLA-B BW2 6 [facility] HLA-AG Notes [facility] HLA-AG Report Comments [facility] Specimen Blood Narrative Performed At Disclaimer: [facility] This test was developed and its performance characteristics determined by the [facility] Laboratory. It has not been cleared or [...] testing. Performing Organization Address City/State/Zipcode Phone Number [facility] ONE Konrad Yang, : [id number], [place] [address] CLIA#[id number] CAP#[id number] [facility]#[id number] * Type and Screen, Automated (Lab Draw #1) (09/21/2018 8:19 AM DISTRIBUTION TECHNICIAN) ABO/RH AUTOMATED (BEAKER) O POSITIVE [facility] Ab Scrn NEGATIVE [facility] Specimen Blood Performing Organization Address City/[facility]/Zipcode Phone Number [facility] [address] [place] [address] MED[facility]ENTER * CBC with platelet count + automated diff (09/21/2018 8:19 AM DISTRIBUTION TECHNICIAN) WBC 4.6 3.5 - 10.5 K/L [facility] RBC 4.47 (L) 4.63 - 6.08 M/L [facility] Hemoglobin 14.7 13.7 - 17.5 GM/DL [facility] Hematocrit 41.7 40.1 - 51.0 % [facility] MCV 93.3 (H) 79.0 - 92.2 fL [facility] MCH 32.9 (H) 25.7 - 32.2 pg [facility] MCHC 35.3 32.3 - 36.5 GM/DL [facility] RDW 12.7 11.6 - 14.4 % [facility] Platelets 176 150 - 450 K/CU MM [facility] MPV 10.4 9.4 - 12.4 fL [facility] nRBC 0 0 - 0 /100 WBC [facility] % Neutros 57 % [facility] % Lymphs 25 % [facility] % Monos 11 % [facility] % Eos 5 % [facility] % Baso 1 % [facility] # Neutros 2.60 1.78 - 5.38 K/L [facility] # Lymphs 1.12 (L) 1.32 - 3.57 K/L [facility] # Monos 0.51 0.30 - 0.82 K/L [facility] # Eos 0.22 0.04 - 0.54 K/L [facility] # Baso 0.06 0.01 - 0.08 K/L [facility] Immature 1 0 - 1 % [facility] Granulocytes-Relative [facility] Specimen Blood Performing Organization Address City/[facility] Phone Number [address] * Reticulocytes (09/21/2018 8:19 AM DISTRIBUTION TECHNICIAN) % Retic 2.0 (H) 0.5 - 1.8 % [facility] Specimen Blood Performing Organization Address City/[facility] Centercony Phone Number [address] * Direct AHG (DEEPA)/Direct Clau (09/21/2018 8:19 AM DISTRIBUTION TECHNICIAN) Direct [facility]-IGG NEGATIVE [facility] Direct [facility]HG-C3B, C3D NEGATVIE [facility] Specimen Blood Performing Organization Address City/[facility] Centercode Phone Number [address] * MAXIMAL VO2 CARDIOPULM TEST (MVO2) (03/28/2018 9:42 AM CDT) Narrative Performed At Performing Organization Address City/[facility] Phone Number [facility] RIS after 01/23/2018 Insurance Payer Benefit Subscriber ID Type Phone Address Plan / Group [employer]UE [employer] xxxxxxxxxxxx PPO [phone] [id number] POS/PPO/[place] [address] O
[2019-01-24] MEDS ORDERED: XARELTO20 MG PO (15:49)
[2019-01-24] MEDS ORDERED: SPIRONOLACTONE25 MG PO (15:49)
[2019-01-24] MEDS ORDERED: ASPIRIN325 MG PO (15:49)
[2019-01-24] MEDS ORDERED: METFORMIN HCL500 MG PO (15:49)
[2019-01-24] MEDS ORDERED: HYDROXYCHLOROQ200 MG PO (15:49)
[2019-01-24 15:55] VITALS: BP 96/68
--- NOTE | 2019-01-24 16:00 | NUR ---
RECEIVED PATIENT TO ROOM 296 AT 1545. HE IS IN STABLE CONDITION. DENIES PAIN OR DISCOMFORT. INITIAL PHYSICAL ASSESSMENT AND ADMISSION HISTORY COMPLETED AND DOCUMENTED. PATIENT ORIENTED TO ROOM AND POLICIES. CALL LIGHT WITHIN REACH. BED IN THE LOWEST POSITION.
[2019-01-24 16:12] VITALS: BP 96/68
[2019-01-24] MEDS ORDERED: METOPROLOL SUCC50 MG PO (16:15)
[2019-01-24] MEDS ORDERED: FUROSEMIDE40 MG PO (16:15)
[2019-01-24] MEDS: INSULIN LISPRO 100 UNIT/1 ML 3ML VIAL SQ SCH ×2 (16:23→20:15)
--- NOTE | 2019-01-24 18:12 | NUR ---
DR. CANCHOLA ROUNDING ON PATIENT AT THIS TIME, NOTIFIED HIM OF PATIENT'S PT/INR OF 41.5/4.22 AND PATIENT TAKING XARELTO. PER DR. CANCHOLA "PT/INR DOES NOT MATTER WHEN PATIENT IS TAKING XARELTO", OK TO KEEP TAKING IT.
[2019-01-24] MEDS ORDERED: HYDRALAZINE HCL 20 MG/ML VIAL IV PRN (18:30)
[2019-01-24] MEDS ORDERED: ACETAMINOPHEN 325 MG TAB PO PRN (18:30)
--- NOTE | 2019-01-24 19:10 | NUR ---
patient received awake, alert, lying quietly in bed. no c/o pain noted. respirations even and unlabored. ivf continue to infuse without difficulty x 1 liter only. pm assessment complete. call schwartz placed within reach. patient instructed to call for assistance when needed.
--- NOTE | 2019-01-24 19:10 | NUR ---
REPORT GIVEN TO ONCOMING NURSE, PATIENT IS RESTING IN BED. RESPIRATIONS EVEN AND UNLABORED, NO ACUTE DISTRESS NOTED. CALL LIGHT WITHIN REACH. BED IN THE LOWEST POSITION.
[2019-01-24 19:30] VITALS: BP 107/63
[2019-01-24] MEDS ORDERED: CEFTRIAXONE SOD 1 GM/NS 50 ML 50 ML IV SCH (20:00)
[2019-01-24 20:10] VITALS: BP 107/63
[2019-01-24 20:56] LABS: CREATINE KINASE MB 0.7 ng/mL (0-5.0)
[2019-01-25] VITALS (8 sets, daily range): BP systolic 92–112; BP diastolic 56–70
[2019-01-25] MEDS: CEFTRIAXONE SOD 1 GM/NS 50 ML 50 ML IV SCH ×2 (00:49→13:14)
--- NOTE | 2019-01-25 02:00 | NUR ---
3rd cardiac markers and 0300 labs drawn and sent to lab at this time.
[2019-01-25 02:26] LABS: BASOPHILS # (AUTO) 0.1 (0.0-0.1); BASOPHILS % 0.6 % (0.0-1.0); EOSINOPHILS # (AUTO) 0.4 (0.0-0.4); EOSINOPHILS % 4.3 % (0.0-6.0); HEMATOCRIT 38.3 % (38.2-49.6); HEMOGLOBIN 12.9 g/dL (14.0-18.0); LYMPHOCYTES # (AUTO) 0.9 (1.0-3.2); LYMPHOCYTES % 10.6 % (18.0-39.1); MEAN CORPUSCULAR HEMOGLOBIN 31.8 pg (28-32); MEAN CORPUSCULAR HGB CONC 33.7 g/dL (31-35); MEAN CORPUSCULAR VOLUME 94.3 fL (81-99); MONOCYTES # (AUTO) 0.6 (0.2-0.8); MONOCYTES % 7.5 % (4.4-11.3); NEUTROPHILS # (AUTO) 6.3 (2.1-6.9); NEUTROPHILS % 76.3 % (38.7-80.0); PLATELET COUNT 119 x10e3/uL (140-360); RED BLOOD COUNT 4.06 x10e6/uL (4.3-5.7); RED CELL DISTRIBUTION WIDTH 12.9 % (11.7-14.4)
[2019-01-25 02:44] LABS: ANION GAP 15.4 mmol/L (8-16); BLOOD UREA NITROGEN 14 mg/dL (7-26); BUN/CREATININE RATIO 21 (6-25); CALCIUM 9.2 mg/dL (8.4-10.2); CARBON DIOXIDE 21 mmol/L (22-29); CHLORIDE 101 mmol/L (98-107); CREATININE, SERUM 0.68 mg/dL (0.72-1.25); EST GLOMERULAR FILTRATION RATE > 60 ML/MIN (60-); GLUCOSE 82 mg/dL (74-118); POTASSIUM 3.4 mmol/L (3.5-5.1); SODIUM 134 mmol/L (136-145)
[2019-01-25 02:52] LABS: CREATINE KINASE MB 0.7 ng/mL (0-5.0)
[2019-01-25 03:05] LABS: FREE T4 (FREE THYROXINE) 1.05 ng/dL (0.9-1.8); MAGNESIUM 1.1 MG/DL (1.3-2.1); THYROID STIMULATING HORMONE 1.074 uIU/mL (0.350-4.940)
[2019-01-25 06:18] LABS: BASOPHILS # (AUTO) 0.1 (0.0-0.1); BASOPHILS % 0.8 % (0.0-1.0); EOSINOPHILS # (AUTO) 0.2 (0.0-0.4); HEMOGLOBIN 13.2 g/dL (14.0-18.0); LYMPHOCYTES # (AUTO) 1.1 (1.0-3.2); LYMPHOCYTES % 13.5 % (18.0-39.1); MEAN CORPUSCULAR HEMOGLOBIN 31.4 pg (28-32); MEAN CORPUSCULAR VOLUME 95.2 fL (81-99); MONOCYTES # (AUTO) 0.6 (0.2-0.8); MONOCYTES % 8.1 % (4.4-11.3); NEUTROPHILS # (AUTO) 5.9 (2.1-6.9); PLATELET COUNT 118 x10e3/uL (140-360); RED CELL DISTRIBUTION WIDTH 12.9 % (11.7-14.4)
[2019-01-25 06:19] LABS: INR 1.97; PROTHROMBIN TIME 23.1 seconds (11.9-14.5)
[2019-01-25 06:28] LABS: ALANINE AMINOTRANSFERASE 11 IU/L (0-55); ALBUMIN 3.3 g/dL (3.5-5.0); ALBUMIN/GLOBULIN RATIO 0.9 (0.8-2.0); ALKALINE PHOSPHATASE 85 IU/L (40-150); ANION GAP 15.4 mmol/L (8-16); BLOOD UREA NITROGEN 14 mg/dL (7-26); BUN/CREATININE RATIO 19 (6-25); CALCIUM 9.4 mg/dL (8.4-10.2); CARBON DIOXIDE 24 mmol/L (22-29); CHLORIDE 100 mmol/L (98-107); CREATININE, SERUM 0.73 mg/dL (0.72-1.25); EST GLOMERULAR FILTRATION RATE > 60 ML/MIN (60-); GLUCOSE 69 mg/dL (74-118); POTASSIUM 4.4 mmol/L (3.5-5.1); SODIUM 135 mmol/L (136-145)
--- NOTE | 2019-01-25 06:58 | NUR ---
RECEIVED PATIENT RESTING IN BED, NO ACUTE DISTRESS NOTED, RESPIRATIONS EVEN AND UNLABORED. CALL LIGHT WITHIN REACH. BED IN THE LOWEST POSITION.
[2019-01-25] MEDS: INSULIN LISPRO 100 UNIT/1 ML 3ML VIAL SQ SCH ×4 (07:30→20:16)
[2019-01-25] MEDS ORDERED: MAGNESIUM SULFATE 2GM/50ML 50 ML IV ONE (08:00)
[2019-01-25] MEDS ORDERED: METFORMIN HCL 500 MG TAB PO SCH (08:00)
[2019-01-25] MEDS: ASPIRIN 325 MG TAB PO SCH (08:40)
[2019-01-25] MEDS: HYDROXYCHLOROQUINE SULFATE 200 MG TAB PO SCH ×2 (08:40→17:11)
[2019-01-25] MEDS: FAMOTIDINE 20 MG TAB PO SCH ×2 (08:40→16:47)
[2019-01-25] MEDS: FUROSEMIDE 40 MG TAB PO SCH ×2 (08:40→17:11)
[2019-01-25] MEDS: SPIRONOLACTONE 25 MG TAB PO SCH (08:40)
[2019-01-25] MEDS: RIVAROXABAN 15 MG TABLET PO SCH (08:45)
[2019-01-25] MEDS ORDERED: METOPROLOL SUCCINATE 50 MG TAB XL PO SCH (09:00)
[2019-01-25] MEDS ORDERED: RIVAROXABAN 20 MG TABLET PO SCH (09:00)
[2019-01-25 11:22] LABS: CREATINE KINASE MB 0.8 ng/mL (0-5.0)
--- NOTE | 2019-01-25 15:18 | NUR ---
ASSESSED POST VOID RESIDUAL FOR PATIENT, 0 ML NOTED.
--- NOTE | 2019-01-25 15:39 | NUR ---
NOTIFIED TRI CHOI OF POST VOID RESIDUAL.
[2019-01-25] MEDS ORDERED: ONDANSETRON HCL 4 MG ORAL DISINTEGRATING TAB PO PRN (16:30)
[2019-01-25] MEDS: METOPROLOL SUCCINATE 50 MG TAB XL PO SCH (17:00)
--- NOTE | 2019-01-25 17:18 | Consultation ---
DATE OF CONSULTATION: 01/25/[address] Barbour for this consultation. REASON FOR CONSULTATION: Coagulopathy and thrombocytopenia. HISTORY OF PRESENT ILLNESS: This is a very pleasant gentleman with a past medical history of hypertension, diabetes, atrial fibrillation, history of skin cancer, history of transplant, currently on Xarelto treatment, admitted through the emergency with worsening dizziness, fatigue, lethargic, and tiredness. The patient is currently feeling better. He was also in mild confusion at admission. The patient denies any hematemesis, melena, hematochezia. He feels fatigued, tired, lethargic. No fevers or chills reported. Initial impression was sepsis, the patient was admitted for further management. The patient's blood work includes platelet count was 130. INR was 4. PAST MEDICAL HISTORY: Diabetes, hypertension, AFib, and skin cancer. ALLERGIES: MEDICATION LIST: Reviewed. SOCIAL HISTORY: No current smoking, alcohol, or drugs. REVIEW OF SYSTEMS: A 12-point review as per HPI. PHYSICAL EXAMINATION: GENERAL: Alert, awake, communicative. HEENT: Normocephalic, atraumatic. Sclerae pale. Conjunctiva clear. NECK: Supple. CHEST: Decreased breath sounds at bases. CARDIOVASCULAR: Regular rate and rhythm. ABDOMEN: Soft. EXTREMITIES: No edema. LABS AND IMAGING: Reviewed. ASSESSMENT AND PLAN: The patient with history of multiple medical conditions . The patient was on Xarelto for atrial fibrillation, was 20 mg of dose. RECOMMENDATION: Resume Xarelto with 15 mg p.o. daily. Avoid other thrombocytopenic medication. We will monitor the patient closely. Thrombocytopenia. New onset. Possibility of infection. Other possibility of medication. No evidence of any bleeding. Recommendation, close observation. Dizziness. Improving. Primary care and Cardiology on the case. We will follow their recommendations. MD MALENA Cheng/DAVIAN /[id number]
[2019-01-26] VITALS: BP 102/69
[2019-01-26] MEDS ORDERED: SODIUM CHLORIDE 0.9% 250ML 250 ML ONE (01:22)
[2019-01-26] MEDS: CEFTRIAXONE SOD 1 GM/NS 50 ML 50 ML IV SCH ×2 (01:26→12:40)
--- NOTE | 2019-01-26 02:51 | NUR ---
0300 LABS DRAWN, TAKEN TO LAB
[2019-01-26 03:02] LABS: BASOPHILS % 0.7 % (0.0-1.0); EOSINOPHILS # (AUTO) 0.3 (0.0-0.4); EOSINOPHILS % 5.6 % (0.0-6.0); HEMOGLOBIN 12.8 g/dL (14.0-18.0); LYMPHOCYTES # (AUTO) 0.9 (1.0-3.2); LYMPHOCYTES % 14.7 % (18.0-39.1); MEAN CORPUSCULAR HEMOGLOBIN 31.8 pg (28-32); MEAN CORPUSCULAR HGB CONC 34.6 g/dL (31-35); MEAN CORPUSCULAR VOLUME 91.8 fL (81-99); MONOCYTES # (AUTO) 0.5 (0.2-0.8); MONOCYTES % 8.6 % (4.4-11.3); NEUTROPHILS # (AUTO) 4.1 (2.1-6.9); NEUTROPHILS % 70.1 % (38.7-80.0); PLATELET COUNT 122 x10e3/uL (140-360); RED BLOOD COUNT 4.03 x10e6/uL (4.3-5.7); RED CELL DISTRIBUTION WIDTH 12.7 % (11.7-14.4)
[2019-01-26 03:41] LABS: ANION GAP 14.8 mmol/L (8-16); BLOOD UREA NITROGEN 21 mg/dL (7-26); BUN/CREATININE RATIO 28 (6-25); CALCIUM 8.8 mg/dL (8.4-10.2); CARBON DIOXIDE 20 mmol/L (22-29); CHLORIDE 100 mmol/L (98-107); CREATININE, SERUM 0.76 mg/dL (0.72-1.25); EST GLOMERULAR FILTRATION RATE > 60 ML/MIN (60-); GLUCOSE 99 mg/dL (74-118); MAGNESIUM 1.5 MG/DL (1.3-2.1); POTASSIUM 3.8 mmol/L (3.5-5.1); SODIUM 131 mmol/L (136-145)
[2019-01-26 04:00] VITALS: BP 113/73
[2019-01-26] MEDS: INSULIN LISPRO 100 UNIT/1 ML 3ML VIAL SQ SCH ×3 (07:30→16:30)
--- NOTE | 2019-01-26 07:30 | NUR ---
PT IS SITTING ON SOFA WITH NO S/S OF DISTRESS. PT ON RA AT 98%. CALL VELASCO WITHIN REACH.
[2019-01-26 08:13] VITALS: BP 130/72
[2019-01-26] MEDS: SPIRONOLACTONE 25 MG TAB PO SCH (09:09)
[2019-01-26] MEDS: METOPROLOL SUCCINATE 50 MG TAB XL PO SCH (09:12)
[2019-01-26] MEDS: FUROSEMIDE 40 MG TAB PO SCH (09:13)
[2019-01-26] MEDS: RIVAROXABAN 15 MG TABLET PO SCH (09:13)
[2019-01-26] MEDS: HYDROXYCHLOROQUINE SULFATE 200 MG TAB PO SCH (09:13)
[2019-01-26] MEDS: FAMOTIDINE 20 MG TAB PO SCH (09:17)
[2019-01-26] MEDS: ASPIRIN 325 MG TAB PO SCH (09:17)
[2019-01-26] MEDS ORDERED: XARELTO15 MG PO (10:31)
--- NOTE | 2019-01-26 11:12 | Progress Note ---
DATE: 01/26/2019 SUBJECTIVE: The patient is seen and examined today. The patient appeared comfortable. Clinically doing better. No worsening event noted. PHYSICAL EXAMINATION: GENERAL: Alert, awake, communicative. HEENT: Normocephalic, atraumatic. Sclerae pale. Conjunctiva clear. NECK: Supple. CHEST: Decreased breath sounds in the bases. ABDOMEN: Soft. EXTREMITIES: No edema. LABORATORY AND IMAGING DATA: Reviewed. ASSESSMENT AND PLAN: 1. The patient with history of diabetes, hypertension, AFib, and skin cancer. Admitted with dizziness, coagulopathy, and thrombocytopenia. Coagulopathy, was because of anticoagulation. The patient is on Xarelto 15 mg daily, clinically doing better. Continue current care. 2. Thrombocytopenia. 3. Platelet counts are improving. 4. No clear etiology. RECOMMENDATION: 1. Close observation. 2. We will continue remaining care. We will follow the patient closely. MD MALENA Cheng/DAVIAN /[id number]
[2019-01-26 11:25] VITALS: BP 130/72
[2019-01-26 11:33] VITALS: BP 106/69
[2019-01-26] MEDS ORDERED: XARELTO10 MG PO (12:10)
--- NOTE | 2019-01-26 12:45 | NUR ---
PT IS SITTING ON SIDE OF BED EATING LUNCH. NO S/S OF DISTRESS. CALL VELASCO WITHIN REACH.
[2019-01-26 16:15] VITALS: BP 102/64
--- NOTE | 2019-01-26 16:50 | NUR ---
pt discharged home. IV removed without no complications. no s/s of distress noted. pt taken downstairs by tech.
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
== END 2019-01-26 16:57 | disposition home or self-care (01) ==
LOC: ER 11:09 → ERHOLD 14:19 → MED/SURG3 15:53
PROVIDERS: ADMIT Internal Medicine; ATTEND Internal Medicine
DX: N39.0 Urinary tract infection, site not specified (principal); G92 Toxic encephalopathy; E11.9 Type 2 diabetes mellitus without complications; I48.2 Chronic atrial fibrillation; I11.0 Hypertensive heart disease with heart failure; I50.23 Acute on chronic systolic (congestive) heart failure; M32.9 Systemic lupus erythematosus, unspecified; Z85.828 Personal history of other malignant neoplasm of skin; Z95.810 Presence of automatic (implantable) cardiac defibrillator; Z79.01 Long term (current) use of anticoagulants; D69.6 Thrombocytopenia, unspecified; T45.515A Adverse effect of anticoagulants, initial encounter
CPT/HCPCS: 36415 ×3; 70450; 71046; 80048 ×2; 80053 ×2; 81001; 82550 ×2; 82553 ×2; 82948 ×3; 83036; 83605; 83735 ×2; 83880 ×2; 84439; 84443; 84484 ×2; 85025 ×3; 85610 ×2; 85651; 85730 ×2; 86140; 87040; 87086; 92526 ×2; 92610; 93005; 93306; 93880; 97161; 99284; G0378 ×3; J0696 ×3; J3475; J7030; J7050

== ENCOUNTER 2019-02-09 02:54 | Emergency (ER) | payer BC ==
[~2019-02-09] VITALS: Ht 177.8 cm; Wt 88.9 kg
[~2019-02-09 02:54] MED LIST: ASPIRIN325 MG PO; ENTRESTO; FUROSEMIDE40 MG PO; HYDROXYCHLOROQ200 MG PO; METFORMIN HCL500 MG PO; METOPROLOL SUCC50 MG PO; SPIRONOLACTONE25 MG PO; XARELTO10 MG PO; XARELTO15 MG PO; XARELTO20 MG PO
--- OUTSIDE RECORDS SUMMARY | 2019-02-09 02:57 | XMS REPORT | Clinical Summary ---
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 Name Role Phone Randy Lund PCP Allergies [...] Encounter Max Oropeza MD Manson, Melissa J, [facility] Awaiting organ transplant status; Dilated cardiomyopathy (HCC) 09/21/2018 Evaluation Cardiology Yamileth Cassidylorensilvia Atkins 09/21/2018 Abstract Transplant Max Oropeza MD 09/21/2018 [...] Dx) 03/17/2018 Outside Orders Central Scheduling after 02/08/2018 Family History Medical History Relation Name Comments [...] Date Type Specialty Collette Steen MD [address] [facility] [address] [place] [address] 02/22/2019 Office Visit Hepatology Procedures [...] CREATININE Routine 10/26/2018 Pre-transplant evaluation 11:14 AM LIVESTOCK YARD SUPERVISOR for heart transplant CREATININE CLEARANCE Routine 10/26/2018 Pre-transplant evaluation 10:59 AM LIVESTOCK YARD SUPERVISOR for heart transplant DRUG SCREEN, URINE, Routine 10/24/2018 Pre-transplant evaluation TRANSPLANT 10:10 AM LIVESTOCK YARD SUPERVISOR for heart transplant PULMONARY FUNCTION - SCAN 10/12/2018 2:50 PM LIVESTOCK YARD SUPERVISOR CAROTID DOPPLER BILATERAL Routine 10/05/2018 Awaiting organ transplant 10:39 AM LIVESTOCK YARD SUPERVISOR status Dilated cardiomyopathy (HCC) ARTERIAL DOPPLER LEGS Routine 10/05/2018 Awaiting organ transplant BILATERAL 10:39 AM LIVESTOCK YARD SUPERVISOR status Dilated cardiomyopathy (HCC) CT CHEST WITHOUT IV Routine 10/05/2018 Awaiting organ transplant CONTRAST 8:44 AM LIVESTOCK YARD SUPERVISOR status Dilated cardiomyopathy (HCC) CT BRAIN WITHOUT IV Routine 10/05/2018 Awaiting organ transplant CONTRAST 8:44 AM LIVESTOCK YARD SUPERVISOR status Dilated cardiomyopathy (HCC) CT ABDOMEN WITHOUT IV Routine 10/05/2018 Awaiting organ transplant CONTRAST 8:44 AM LIVESTOCK YARD SUPERVISOR status Dilated cardiomyopathy (HCC) XR DXA BONE DENSITY STUDY Routine 10/05/2018 7:48 AM LIVESTOCK YARD SUPERVISOR TRANSFUSION SERVICE 09/22/2018 REPORT - SCAN 6:05 PM LIVESTOCK YARD SUPERVISOR US RENAL COMPLETE Routine 09/21/2018 Awaiting organ transplant 2:29 PM LIVESTOCK YARD SUPERVISOR status Dilated cardiomyopathy (HCC) XR CHEST 2 VIEWS Routine 09/21/2018 Awaiting organ transplant 1:21 PM LIVESTOCK YARD SUPERVISOR status Dilated cardiomyopathy (HCC) VARICELLA ZOSTER Routine 09/21/2018 Awaiting organ transplant ANTIBODY, IGG 11:31 AM LIVESTOCK YARD SUPERVISOR status Dilated cardiomyopathy (HCC) T SPOT TB Routine 09/21/2018 Awaiting organ transplant 10:37 AM LIVESTOCK YARD SUPERVISOR status Dilated cardiomyopathy (HCC) AB SPECIFICITY CLASS II Routine 09/21/2018 Awaiting organ transplant 10:01 AM LIVESTOCK YARD SUPERVISOR status Dilated cardiomyopathy (HCC) AB SPECIFICITY CLASS I Routine 09/21/2018 Awaiting organ transplant 10:01 AM LIVESTOCK YARD SUPERVISOR status Dilated cardiomyopathy (HCC) PROTEIN ELECTROPHORESIS, AP Routine 09/21/2018 Awaiting organ transplant SERUM 10:01 AM LIVESTOCK YARD SUPERVISOR status FLOW PRA CLASS II WITH Routine 09/21/2018 Awaiting organ transplant REFLEX TO ANTIBODY 10:01 AM LIVESTOCK YARD SUPERVISOR status SPECIFICITY Dilated cardiomyopathy (HCC) FLOW PRA CLASS I WITH Routine 09/21/2018 Awaiting organ transplant REFLEX TO ANTIBODY 10:01 AM LIVESTOCK YARD SUPERVISOR status SPECIFICITY Dilated cardiomyopathy (HCC) TOXOPLASMA GONDII Routine 09/21/2018 Awaiting organ transplant ANTIBODY, IGM 10:01 AM LIVESTOCK YARD SUPERVISOR status Dilated cardiomyopathy (HCC) TOXOPLASMA GONDII Routine 09/21/2018 Awaiting organ transplant ANTIBODY, IGG 10:01 AM LIVESTOCK YARD SUPERVISOR status Dilated cardiomyopathy (HCC) RPR Routine 09/21/2018 Awaiting organ transplant 10:01 AM LIVESTOCK YARD SUPERVISOR status Dilated cardiomyopathy (HCC) HIV-1 ANTIGEN WITH Routine 09/21/2018 Awaiting organ transplant HIV-1/2 ANTIBODY 10:01 AM LIVESTOCK YARD SUPERVISOR status Dilated cardiomyopathy (HCC) HERPES VIRUS ANTIBODY, Routine 09/21/2018 Awaiting organ transplant IGM 10:01 AM LIVESTOCK YARD SUPERVISOR status Dilated cardiomyopathy (HCC) HERPES VIRUS ANTIBODY, Routine 09/21/2018 Awaiting organ transplant IGG 10:01 AM LIVESTOCK YARD SUPERVISOR status Dilated cardiomyopathy (HCC) EBV ANTIBODY, IGM Routine 09/21/2018 Awaiting organ transplant 10:01 AM LIVESTOCK YARD SUPERVISOR status Dilated cardiomyopathy (HCC) EBV ANTIBODY, IGG Routine 09/21/2018 Awaiting organ transplant 10:01 AM LIVESTOCK YARD SUPERVISOR status Dilated cardiomyopathy (HCC) CYTOMEGALOVIRUS ANTIBODY, Routine 09/21/2018 Awaiting organ transplant IGM 10:01 AM LIVESTOCK YARD SUPERVISOR status Dilated cardiomyopathy (HCC) CYTOMEGALOVIRUS ANTIBODY, Routine 09/21/2018 Awaiting organ transplant IGG 10:01 AM LIVESTOCK YARD SUPERVISOR status Dilated cardiomyopathy (HCC) ANTI-NUCLEAR ANTIBODY Routine 09/21/2018 Awaiting organ transplant (FRANC) 10:01 AM LIVESTOCK YARD SUPERVISOR status Dilated cardiomyopathy (HCC) VITAMIN D, 25-HYDROXY Routine 09/21/2018 Awaiting organ transplant 10:01 AM LIVESTOCK YARD SUPERVISOR status Dilated cardiomyopathy (HCC) URIC ACID Routine 09/21/2018 Awaiting organ transplant 10:01 AM LIVESTOCK YARD SUPERVISOR status Dilated cardiomyopathy (HCC) TSH Routine 09/21/2018 Awaiting organ transplant 10:01 AM LIVESTOCK YARD SUPERVISOR status Dilated cardiomyopathy (HCC) TRANSFERRIN Routine 09/21/2018 Awaiting organ transplant 10:01 AM LIVESTOCK YARD SUPERVISOR status Dilated cardiomyopathy (HCC) T4, FREE Routine 09/21/2018 Awaiting organ transplant 10:01 AM LIVESTOCK YARD SUPERVISOR status Dilated cardiomyopathy (HCC) PSA Routine 09/21/2018 Awaiting organ transplant 10:01 AM LIVESTOCK YARD SUPERVISOR status Dilated cardiomyopathy (HCC) PREALBUMIN Routine 09/21/2018 Awaiting organ transplant 10:01 AM LIVESTOCK YARD SUPERVISOR status Dilated cardiomyopathy (HCC) PHOSPHORUS Routine 09/21/2018 Awaiting organ transplant 10:01 AM LIVESTOCK YARD SUPERVISOR status Dilated cardiomyopathy (HCC) MAGNESIUM Routine 09/21/2018 Awaiting organ transplant 10:01 AM LIVESTOCK YARD SUPERVISOR status Dilated cardiomyopathy (HCC) LIPID PANEL Routine 09/21/2018 Awaiting organ transplant 10:01 AM LIVESTOCK YARD SUPERVISOR status Dilated cardiomyopathy (HCC) LIPASE Routine 09/21/2018 Awaiting organ transplant 10:01 AM LIVESTOCK YARD SUPERVISOR status Dilated cardiomyopathy (HCC) LACTATE DEHYDROGENASE Routine 09/21/2018 Awaiting organ transplant (LDH) 10:01 AM LIVESTOCK YARD SUPERVISOR status Dilated cardiomyopathy (HCC) IRON, SERUM Routine 09/21/2018 Awaiting organ transplant 10:01 AM LIVESTOCK YARD SUPERVISOR status Dilated cardiomyopathy (HCC) HEPATITIS C ANTIBODY Routine 09/21/2018 Awaiting organ transplant 10:01 AM LIVESTOCK YARD SUPERVISOR status Dilated cardiomyopathy (HCC) HEPATITIS B SURFACE Routine 09/21/2018 Awaiting organ transplant ANTIGEN 10:01 AM LIVESTOCK YARD SUPERVISOR status Dilated cardiomyopathy (HCC) HEPATITIS B E ANTIGEN Routine 09/21/2018 Awaiting organ transplant 10:01 AM LIVESTOCK YARD SUPERVISOR status Dilated cardiomyopathy (HCC) HEPATITIS B CORE Routine 09/21/2018 Awaiting organ transplant ANTIBODY, TOTAL 10:01 AM LIVESTOCK YARD SUPERVISOR status Dilated cardiomyopathy (HCC) HEPATITIS B CORE Routine 09/21/2018 Awaiting organ transplant ANTIBODY, IGM 10:01 AM LIVESTOCK YARD SUPERVISOR status Dilated cardiomyopathy (HCC) HEPATITIS A ANTIBODY, IGM Routine 09/21/2018 Awaiting organ transplant 10:01 AM LIVESTOCK YARD SUPERVISOR status Dilated cardiomyopathy (HCC) HEPATITIS A ANTIBODY, IGG Routine 09/21/2018 Awaiting organ transplant 10:01 AM LIVESTOCK YARD SUPERVISOR status Dilated cardiomyopathy (HCC) HEPATIC FUNCTION PANEL Routine 09/21/2018 Awaiting organ transplant 10:01 AM LIVESTOCK YARD SUPERVISOR status Dilated cardiomyopathy (HCC) HEMOGLOBIN A1C Routine 09/21/2018 Awaiting organ transplant 10:01 AM LIVESTOCK YARD SUPERVISOR status Dilated cardiomyopathy (HCC) GAMMA GLUTAMYL Routine 09/21/2018 Awaiting organ transplant TRANSFERASE (GGT) 10:01 AM LIVESTOCK YARD SUPERVISOR status Dilated cardiomyopathy (HCC) FERRITIN Routine 09/21/2018 Awaiting organ transplant 10:01 AM LIVESTOCK YARD SUPERVISOR status Dilated cardiomyopathy (HCC) B-TYPE NATRIURETIC FACTOR Routine 09/21/2018 Awaiting organ transplant (BNP) 10:01 AM LIVESTOCK YARD SUPERVISOR status Dilated cardiomyopathy (HCC) BASIC METABOLIC PANEL (7) Routine 09/21/2018 Awaiting organ transplant 10:01 AM LIVESTOCK YARD SUPERVISOR status Dilated cardiomyopathy (HCC) ECG 12-LEAD Routine 09/21/2018 9:52 AM LIVESTOCK YARD SUPERVISOR Procedure Note - Interface, External Ris In - 09/21/2018 8:51 AM LIVESTOCK YARD SUPERVISOR Ventricula r Rate 70 BPM Atrial Rate 69 BPM QRS Duration 172 ms Q-T Interval 504 ms QTC Calculatio n(Bazett) 544 ms R [place] -31 degrees T [place] 102 degrees Ventricul ar-paced rhythm Biventricu lar pacemaker detected Abnormal ECG No previous ECGs available ECG 12-LEAD Routine 09/21/2018 Awaiting organ transplant 9:52 AM LIVESTOCK YARD SUPERVISOR status Dilated cardiomyopathy (HCC) PT/APTT Routine 09/21/2018 Awaiting organ transplant 9:02 AM LIVESTOCK YARD SUPERVISOR status Dilated cardiomyopathy (HCC) URINALYSIS W/ MICROSCOPIC Routine 09/21/2018 Awaiting organ transplant 9:01 AM LIVESTOCK YARD SUPERVISOR status Dilated cardiomyopathy (HCC) HLA TYPING CII Routine 09/21/2018 Awaiting organ transplant 8:20 AM LIVESTOCK YARD SUPERVISOR status Dilated cardiomyopathy (HCC) HLA TYPING CI Routine 09/21/2018 Awaiting organ transplant 8:20 AM LIVESTOCK YARD SUPERVISOR status Dilated cardiomyopathy (HCC) CBC W/PLT COUNT & AUTO Routine 09/21/2018 Awaiting organ transplant DIFFERENTIAL 8:19 AM LIVESTOCK YARD SUPERVISOR status Dilated cardiomyopathy (HCC) DIRECT AHG (DEEPA)/DIRECT Routine 09/21/2018 Awaiting organ transplant LISHA 8:19 AM LIVESTOCK YARD SUPERVISOR status Dilated cardiomyopathy (HCC) TYPE AND SCREEN, Routine 09/21/2018 Awaiting organ transplant AUTOMATED 8:19 AM LIVESTOCK YARD SUPERVISOR status Dilated cardiomyopathy (HCC) RETICULOCYTE COUNT Routine 09/21/2018 Awaiting organ transplant 8:19 AM LIVESTOCK YARD SUPERVISOR status Dilated cardiomyopathy (HCC) CBC W/PLT COUNT & AUTO Routine 09/21/2018 Awaiting organ transplant DIFFERENTIAL 8:19 AM LIVESTOCK YARD SUPERVISOR status Dilated cardiomyopathy (HCC) MAXIMAL VO2 CARDIOPULM Routine 03/28/2018 Left ventricular failure TEST - SLMT 9:42 AM CDT (HCC) after 02/08/2018 Results * HEP B SURFACE AB (01/04/2019 10:48 AM CDT) Hep B S Ab Reactive [facility] 1 Comment: No n Reactive: Inconsistent with immunity, less than 10 mIU/mL Re active: Consistent with immunity, grea ter than 9.9 mIU/mL Specimen Narrative Performed At Performed at:[address] [place] [address] [facility] [address] [place], [id number] Classified Advertising Clerk: Chapo Al MD, Phone:[phone] Performing Organization Address City/State/Zipcode Phone Number [facility] * Hepatitis B core antibody, total (01/04/2019 10:48 AM CDT) Only the most recent of 2 results within the time period is included. Hep B Core Ab, Tot Negative Negative [facility] 1 Specimen Narrative Performed At Performed at:[address] [place] [address] [facility] [address] [place], [place] [id number] Classified Advertising Clerk: Chapo Al MD, Phone:[phone] Performing Organization Address City/[facility] Phone Number [facility] 1 * Hepatitis B surface antigen (01/04/2019 10:48 AM CDT) Only the most recent of 2 results within the time period is included. HBsAg Screen Negative Negative [facility] 1 Specimen Narrative Performed At Performed at:[address] [place] [id number] Classified Advertising Clerk: Chapo Al MD, Phone:[phone] Performing Organization Address [facility] Phone Number [facility] 1 * Hepatitis A antibody, total ([facility] Only) (12/29/2018 10:50 AM CDT) Hep A Ab, Total Positive (A) Negative [facility] 1 Specimen Blood Narrative Performed At Performed at:[address] [place], [place] [id number] Classified Advertising Clerk: Chapo Al MD, Phone:[phone] Performing Organization Address [facility] Phone Number [facility] 1 * Hepatitis B Viral DNA, [...] IU/mL. Specimen Blood Narrative Performed At Performed at:[address] [place] [address] [address] [place], [id number] Classified Advertising Clerk: Althea Cee MD, Phone:[phone] Performing Organization Address City/[facility] Phone Number [facility] 1 * Hemochromatosis by PCR (12/29/2018 [...] are carriers of HH.The mutations analyzed by [facility] are most common in the population.Because [...] Prev Med 16:134-140. Heather Farrell (2002). Lancet 360(1118):1673-04. Lissette Walsh et al. (2002). Blood Cells, Molecules. and Diseases.293):418-432. Windy Smith et al. (2003). [place] Med. 5(1):1-8. Enid WOLF et al. (2003). [place] Med. 5(4):304-10. This test was developed and its performance characteristics determined by [facility]. It has not been cleared or approved by the Food and Drug Administration. Genetic counselors are available for health care providers to discuss results at [phone]. Aubrey [place], PhD, [facility] Regi Lomas, PhD, [facility] John HawkS., PhD, [facility] Joyce Hinds, PhD, [facility] Darryl Foster, PhD, [facility] Jose Benson, PhD, [facility] Specimen Blood Narrative Performed At Performed at:02 - [facility] RTP [facility] [address], [facility], [id number] Classified Advertising Clerk: Ubaldo Miles MD, Phone:[phone] Performing Organization Address City/[facility] Phone Number [facility] 2 * Alpha fetoprotein (AFP), tumor [...] Blood Narrative Performed At Performed at: - [facility] [address] [place], [id number] Classified Advertising Clerk: Chapo Al MD, Phone:[phone] Performing Organization Address [facility] Phone Number [facility] 1 * Hepatitis C genotype (12/29/2018 [...] Specimen Blood Narrative Performed At Performed at: [facility] [address] [facility], [id number] Classified Advertising Clerk: Althea Cee MD, Phone:[phone] Performing Organization Address City/[facility] Phone Number [facility] 1 * Hepatitis C RNA, Quantitative (12/29/2018 10:49 AM CDT) Hepatitis C Quantitation HCV Not Detected IU/mL [facility] Test Information: CommentComment: The [facility] 1 quantitative range of this assay is 15 IU/mL to 100 million IU/mL. Specimen Blood Narrative Performed At Performed at: - [facility] [address] [place], [id number] Classified Advertising Clerk: Althea Cee MD, Phone:[phone] Performing Organization Address [facility] Phone Number [facility] 1 * Pro-time/INR [...] Blood Narrative Performed At Performed at: - [facility] [address] [place], [id number] Classified Advertising Clerk: Chapo Al MD, Phone:[phone] Performing Organization Address [facility] Phone Number [facility] 1 * CBC [...] 1 Specimen Blood Narrative Performed At Performed at:[address] [place], [place] [id number] Classified Advertising Clerk: Chapo Al MD, Phone:[phone] Performing Organization Address [facility] Phone Number [facility] 1 * Hepatic function panel (12/29/2018 [...] 1 Specimen Blood Narrative Performed At Performed at:[address] [place], [place] [id number] Classified Advertising Clerk: Chapo Al MD, Phone:[phone] Performing Organization Address [facility] Phone Number [facility] 1 * Basic Metabolic Panel (12/29/2018 [...] Blood Narrative Performed At Performed at:01 - [facility] [address] [place], [id number] Classified Advertising Clerk: Chapo Al MD, Phone:[phone] Performing Organization Address City/State/Zipcode Phone Number [facility] 1 * US abdominal with doppler (12/29/2018 8:38 AM CDT) Specimen Narrative Performed At Addendum [facility] REPORT STATUS:A Innumerable tiny reticular and nodular echogenic foci in the spleen could reflect the presence of Gamna-Exeland bodies. Infiltrative process is considered much less likely. This finding is amenable to follow-up. Signed: Nicole Mchugh MD Report Verified Date/Time:12/29/2018 14:06:18 Reading Location: [address] Radiology Reading Room Addendum Ends FINAL [...] MD Report Verified Date/Time:12/29/2018 11:17:46 Reading Location: [address] Radiology Reading Room Procedure Note Interface, External Ris In - 12/29/2018 2:08 PM CDT Addendum Begins REPORT STATUS:A Innumerable tiny reticular and nodular echogenic foci in the spleen could reflect the presence of Gamna-Khris bodies. Infiltrative process is considered much less likely. This finding is amenable to follow-up. Signed: Nicole Mchugh MD Report Verified Date/Time: 12/29/2018 14:06:18 Reading Location: [address] Radiology Reading Room Addendum Ends FINAL [...] Report Verified Date/Time: 12/29/2018 11:17:46 Reading Location: [address] Radiology Reading Room Performing Organization Address City/State/Zipcode Phone Number [facility] * EKG-SCANNED (12/20/2018 3:41 PM CDT) Narrative Performed At * Miscellaneous lab test (12/14/2018 2:07 PM CDT) Scan Result [facility] Specimen Blood Narrative Performed At Performing Organization Address City/State/Zipcode Phone Number [facility] [address] [place], [place] * Creatinine (Serum) (10/26/2018 11:14 AM LIVESTOCK YARD SUPERVISOR) Creatinine 0.86 0.57 - 1.25 mg/dL [facility] EGFR 90Comment: ESTIMATED GFR IS mL/min/1.73 sq m [facility] NOT ACCURATE CREATININE [facility] CLEARANCE IN PREDICTING GLOMERULAR FILTRATION RATE. ESTIMATED GFR IS NOT APPLICABLE FOR DIALYSIS PATIENTS. Specimen Blood Performing Organization Address [facility] Phone Number [facility] [address] [place] [phone] * Creatinine clearance (10/26/2018 10:59 AM LIVESTOCK YARD SUPERVISOR) Creatinine Clearance 68.7 (L) 70.0 - 140.0 mL/min [facility] Volume, Urine 1,575 ml [facility] Creatinine, Ur 64.5 mg/dL [facility] Patient Height 178.0 cm [facility] Patient Weight 86.200 kg [facility] Specimen Urine Performing Organization Address City/[facility]/Zipcode Phone Number [facility] [address] [place] [address] [facility] * Drug screen, urine, transplant (10/24/2018 10:10 AM LIVESTOCK YARD SUPERVISOR) Specimen Urine Narrative Performed At Performing Organization Address City/State/Zipcode Phone Number [facility] JOYCE [address] [place] [address] * PULMONARY FUNCTION - SCAN (10/12/2018 2:50 PM LIVESTOCK YARD SUPERVISOR) Narrative Performed At * Arterial doppler legs bilateral (10/05/2018 10:39 AM LIVESTOCK YARD SUPERVISOR) Ejection Fraction [facility] MKCKESSON CPACS Specimen Impressions Performed At Right Impression [facility] 1. The posterior tibial [...] + + + + +---- + !Prox RISK PROFESSIONAL ! !16.5!!Monop hasic! + + + + +---- + !Mid RISK PROFESSIONAL ! !10.2 !!Monophasic ! + + + + +---- + !Dist RISK PROFESSIONAL ! !0 !!Absent ! + + + [...] PV LAB - Lower Extremity Arterial Duplex [facility] Demographics MKCKESSON [facility] Patient Name KOREY VIZCARRA Date of Study10/05/2018 BANDAR [id number] Age63 Visit Number [id number] Gender Male Accession Number [id number] [facility]1955 [facility] Natividad Jean Interpreting Kourtney Peña MD RVSPhysician [...] External Ris In - 10/05/2018 3:22 PM LIVESTOCK YARD SUPERVISOR PV LAB - Lower Extremity Arterial Duplex Demographics Patient Name KOREY VIZCARRA Date of Study 10/05/2018 BANDAR Age 63 Visit Number [id number] Gender Male Accession Number [id number] Date of 1955 Referring Sandip Santana Room Number [facility] OPT Physician John Banquet Lead Daniel Jean Interpreting Kourtney Peña MD RVS [...] + + + + + + !Prox RISK PROFESSIONAL ! !16.5 ! !Monophasic ! + + + + + + !Mid RISK PROFESSIONAL ! !10.2 ! !Monophasic ! + + + + + + !Dist RISK PROFESSIONAL ! !0 ! !Absent ! + + [...] + Performing Organization Address City/State/Zipcode Phone Number [facility] NewsBasisDIOR CPACS * Carotid Doppler Bilateral (10/05/2018 10:39 AM LIVESTOCK YARD SUPERVISOR) Ejection Fraction [facility] Synaptic Digital MKDIOR [facility] Specimen Impressions Performed At Right Impression [facility] Synaptic Digital 1. There is <50% diameter reduction (approximately 24% by 2-D measurement) Afraxis in the internal carotid artery with a [...] At PV LAB - Carotid Duplex Study [facility] Demographics [facility] Patient Name KOREY VIZCARRA Date of Study10/05/2018 BANDAR [id number] Age63 Visit Number [id number] Gender Male Accession Number [id number] Date of Birth1955 [facility] OPT PhysicianM. SonographSushila Jean Interpreting Kourtney [...] External Ris In - 10/05/2018 3:22 PM LIVESTOCK YARD SUPERVISOR PV LAB - Carotid Duplex Study Demographics Patient Name KOREY VIZCARRA Date of Study 10/05/2018 BANDAR Age 63 Visit Number [id number] Gender Male Accession Number [id number] Date of 1955 Referring Sandip Santana Room Number [facility] OPT Physician John Banquet Lead Daniel Jean Interpreting Kourtney Peña MD RVS [...] Brain without IV Contrast (10/05/2018 8:44 AM LIVESTOCK YARD SUPERVISOR) Specimen Narrative Performed At FINAL REPORT [facility] CT Head without contrast CLINICAL [...] MD Report Verified Date/Time:10/05/2018 09:02:45 Reading Location: [address] Neuro Reading Room Procedure Note Interface, External Ris In - 10/05/2018 9:04 AM LIVESTOCK YARD SUPERVISOR FINAL REPORT CT Head without contrast CLINICAL [...] Report Verified Date/Time: 10/05/2018 09:02:45 Reading Location: [facility] [id number] Neuro Reading Room Performing Organization Address City/State/Zipcode Phone Number [place] * CT Chest without IV Contrast (10/05/2018 8:44 AM LIVESTOCK YARD SUPERVISOR) Specimen Narrative Performed At FINAL REPORT [place] TECHNIQUE: CT of the chest and abdomen [...] MD Report Verified Date/Time:10/05/2018 09:13:46 Reading Location: [address] Radiology Reading Room Procedure Note Interface, External Ris In - 10/05/2018 9:15 AM LIVESTOCK YARD SUPERVISOR FINAL REPORT TECHNIQUE: CT of the chest [...] Report Verified Date/Time: 10/05/2018 09:13:46 Reading Location: [address] Radiology Reading Room Performing Organization Address City/State/Zipcode Phone Number [place] * CT Abdomen without Contrast (10/05/2018 8:44 AM LIVESTOCK YARD SUPERVISOR) Specimen Narrative Performed At FINAL REPORT [place] TECHNIQUE: CT of the chest and abdomen [...] MD Report Verified Date/Time:10/05/2018 09:13:46 Reading Location: [address] Radiology Reading Room Procedure Note Interface, External Ris In - 10/05/2018 9:15 AM LIVESTOCK YARD SUPERVISOR FINAL REPORT TECHNIQUE: CT of the chest [...] Report Verified Date/Time: 10/05/2018 09:13:46 Reading Location: [address] Radiology Reading Room Performing Organization Address City/[facility] Phone Number [place] * XR dxa bone density study (10/05/2018 7:48 AM LIVESTOCK YARD SUPERVISOR) Specimen Narrative Performed At FINAL REPORT [place] RAD, BONE DENSITY STUDY CLINICAL HISTORY: Heart [...] MD Report Verified Date/Time:10/05/2018 08:15:26 Reading Location: [facility] Radiology Reading Room Procedure Note Interface, External Ris In - 10/05/2018 8:17 AM LIVESTOCK YARD SUPERVISOR FINAL REPORT RAD, BONE DENSITY STUDY CLINICAL [...] Verified Date/Time: 10/05/2018 08:15:26 Reading Location: [facility] Radiology Reading Room Performing Organization Address City/State/[facility] Phone Number [place] * TRANSFUSION SERVICE REPORT - SCAN (09/22/2018 6:05 PM LIVESTOCK YARD SUPERVISOR) Narrative Performed At * US Renal Complete (09/21/2018 2:29 PM LIVESTOCK YARD SUPERVISOR) Specimen Narrative Performed At FINAL REPORT [facility] Renal ultrasound. Clinical History: Heart [...] 2. Otherwise bilateral normal renal ultrasound. Signed: Sonali Elias MD Report Verified Date/Time:09/21/2018 14:34:01 Reading Location: [address] Ultrasound Reading Room Procedure Note Interface, External Ris In - 09/21/2018 2:36 PM LIVESTOCK YARD SUPERVISOR FINAL REPORT Renal ultrasound. Clinical History: Heart [...] 2. Otherwise bilateral normal renal ultrasound. Signed: Sonali Elias MD Report Verified Date/Time: 09/21/2018 14:34:01 Reading Location: [place] [id number] Ultrasound Reading Room Performing Organization Address [facility] Phone Number [place] * XR Chest 2 views (09/21/2018 1:21 PM LIVESTOCK YARD SUPERVISOR) Specimen Narrative Performed At FINAL REPORT [place] [...] MD Report Verified Date/Time:09/21/2018 13:21:28 Reading Location: [address] Radiology Reading Room Procedure Note Interface, External Ris In - 09/21/2018 1:25 PM LIVESTOCK YARD SUPERVISOR FINAL REPORT Chest, PA and lateral. History: Heart transplant evaluation. Comparison: 12/05/2017. Discussion: Left AICD present. Cardiomegaly and thoracic aortic ectasia similar to previous. The lungs are clear without evidence of consolidation or effusion. There are no acute osseous abnormalities. The soft tissues are unremarkable. IMPRESSION: No acute cardiopulmonary abnormality. Signed: Elizabeth Sanders MD Report Verified Date/Time: 09/21/2018 13:21:28 Reading Location: [address] Radiology Reading Room Performing Organization Address [facility] Phone Number [place] * Varicella zoster antibody, IgG (09/21/2018 11:31 AM LIVESTOCK YARD SUPERVISOR) Varicella IgG 4.0 [facility] Specimen Blood Narrative Performed At VARICELLA ZOSTER RESULT INTERPRETATIONS: [facility] <=0.8 AlNonreactive:Presumed non-immune to VZV [facility] 0.9-1.0 AlEquivocal >=1.1 AlReactive:Presumed immune to VZV Performing Organization Address [facility] Facilitycode Phone Number [facility] [address] [place], [place] [phone] [facility] * T Spot TB (09/21/2018 10:37 AM LIVESTOCK YARD SUPERVISOR) T-Spot TB Negative [facility] Neg Ctrl Spot Count 0 [facility] Panel A Spot 0 [facility] Panel B Spot 0 [facility] Pos Ctrl Spot Ct 0 [facility] Scan Result [facility] Specimen Blood Narrative Performed At Performing Organization Address City/State/Zipcode Phone Number [facility] [address] [facility] [place] [address] LABORATORIES 100 * FLOW PRA CLASS II WITH REFLEX TO ANTIBODY SPECIFICITY (09/21/2018 10:01 AM LIVESTOCK YARD SUPERVISOR) Flow Class II Percent 5 [facility] Positive Flow Class Report [facility] Comments Specimen Blood Narrative Performed At Disclaimer: [facility] This test was developed and its performance characteristics determined by the [facility] Laboratory. It has not been cleared or [...] complexity clinical laboratory testing. Performing Organization Address City/[facility] Facility[facility] Phone Number [facility] ONE Konrad Yang, MS: [id number], [place] [address] CLIA#[id number] CAP#[id number] UNOS#[id number] * FLOW PRA CLASS I WITH REFLEX TO ANTIBODY SPECIFICITY (09/21/2018 10:01 AM LIVESTOCK YARD SUPERVISOR) Flow Class I Percent 11 [facility] Positive Flow Class Report [facility] Comments Specimen Blood Narrative Performed At Disclaimer: [facility] This test was developed and its performance characteristics determined by the [facility] Laboratory. It has not been cleared or [...] complexity clinical laboratory testing. Performing Organization Address City/State/[facility] Facility[facility] Phone Number [facility] ONE Konrad Yang, MS: [id number], [place] [address] CLIA#[id number] CAP#[id number] UNOS#[id number] * Hepatitis A antibody, IgG (09/21/2018 10:01 AM LIVESTOCK YARD SUPERVISOR) Hep A IgG Reactive (A) Nonreactive [facility] Specimen Blood Performing Organization Address City/[facility]/Zipcode Phone Number [facility] [address] [place], [place] [phone] [facility] * AB SPECIFICITY CLASS II (09/21/2018 10:01 AM LIVESTOCK YARD SUPERVISOR) AB Specificity Class II NO CLASS II ANTIBODY DETECTED [facility] WITH MFIs > 4000 AB Specificity Titr Class [facility] Report Specimen Blood Narrative Performed At Disclaimer: [facility] This test was developed and its performance characteristics determined by the [facility] Laboratory. It has not been cleared or [...] complexity clinical laboratory testing. Performing Organization Address [facility] Phone Number [facility] ONE Konrad Yang, MS: [id number], [place] [address] CLIA#[id number] CAP#[id number] UNOS#[id number] * AB SPECIFICITY CLASS I (09/21/2018 10:01 AM LIVESTOCK YARD SUPERVISOR) AB Specificity Class I A:32 [facility] AB Specificity Titr Class MFIs > 4000 [facility] Report Specimen Blood Narrative Performed At Disclaimer: [facility] This test was developed and its performance characteristics determined by the [facility] Laboratory. It has not been cleared or [...] complexity clinical laboratory testing. Performing Organization Address [facility]/State/Zipcode Phone Number [facility] ONE [facility] [place], [place]: [id number], [place] [id number] CLIA#[id number] CAP#[id number] UNOS#[id number] * HIV-1 Antigen with HIV-1/2 Antibody (09/21/2018 10:01 AM LIVESTOCK YARD SUPERVISOR) HIV-1 Antigen with HIV NON-REACTIVE Nonreactive [facility] 1&2 Antibody [facility] Specimen Blood Performing Organization Address City/State/Zipcode Phone Number [address] [address] [facility] * Hepatitis C antibody (09/21/2018 10:01 AM LIVESTOCK YARD SUPERVISOR) Hepatitis C Ab Reactive (A) Nonreactive [facility] Specimen Blood Performing Organization Address City/[facility]/Zipcode Phone Number [address] [address] [facility] * CMV antibody, IgM (09/21/2018 10:01 AM LIVESTOCK YARD SUPERVISOR) CMV IGM Negative Negative, Equivocal [facility] Specimen Blood Narrative Performed At CMV IgM Result Interpretation: [facility] </=0.8 Al Negative [facility] 0.9-1.0 Al Equivocal >/=1.1 Al Positive Performing Organization Address City/[facility]/Zipcode Phone Number [address] [address] [facility] * Hepatitis A antibody, IgM (09/21/2018 10:01 AM LIVESTOCK YARD SUPERVISOR) Hep A IgM HEPATITIS A TEST NEGATIVE Nonreactive [facility] Specimen Blood Performing Organization Address City/[facility]/Zipcode Phone Number [address] [address] [facility] * Toxoplasma gondii antibody, IgM (09/21/2018 10:01 AM LIVESTOCK YARD SUPERVISOR) Toxoplasma gondii IgM Negative [facility] Specimen Blood Performing Organization Address City/State/Zipcode Phone Number [facility] [address] * Herpes virus, IgM (09/21/2018 10:01 AM LIVESTOCK YARD SUPERVISOR) Herpes Virus IGM Negative [facility] Specimen Blood Narrative Performed At HSV IgM 1=NEGATIVE [facility] HSV IgM 2=NEGATIVE [facility] Performing Organization Address City/[facility] Facility[facility] Phone Number [address] * Hepatitis B core antibody, IgM (09/21/2018 10:01 AM LIVESTOCK YARD SUPERVISOR) Hep B C IgM NON-REACTIVE Nonreactive [facility] Specimen Blood Performing Organization Address [facility] Facilityconc Phone Number [address] * EBV-VCA antibody, IgM (09/21/2018 10:01 AM LIVESTOCK YARD SUPERVISOR) STAN EDGAR VIRAL CAPSID Negative Negative, Equivocal [facility] ANTIGEN IGM [facility] Specimen Blood Narrative Performed At Stan Edgar Viral Capsid Antigen IgM Result Interpretation: [facility] </=0.8 Al Negative [facility] 0.9-1.0 Al Equivocal >/=1.1 Al Positive Performing Organization Address [facility] Phone Number [address] * EBV-VCA antibody, IgG (09/21/2018 10:01 AM LIVESTOCK YARD SUPERVISOR) STAN EDGAR VIRAL CAPSID Positive (A) Negative, Equivocal [facility] ANTIGEN IGG [facility] Specimen Blood Narrative Performed At Stan Edgar Viral Capsid Antigen IgG Result Interpretation: [facility] </=0.8 Al Negative [facility] 0.9-1.0 Al Equivocal >/=1.1 Al Positive Performing Organization Address [facility] Facility[facility] Phone Number [address] [address] [phone] [place] [address] * Hepatitis B e antigen (09/21/2018 10:01 AM LIVESTOCK YARD SUPERVISOR) Hep Be Ag (Antigen) NONREACTIVEComment: REFERENCE [facility] RANGES: NONREACTIVE INCORPORATED Specimen Blood Narrative Performed At Performing Lab [facility] *[facility] [address] [place] [address] Katia Mccarty MD Performing Organization Address City/State/Zipcode Phone Number [facility], [address] [place], [place] INCORPORATED [facility] [address] * Vitamin D, 25-Hydroxy (09/21/2018 10:01 AM LIVESTOCK YARD SUPERVISOR) Vitamin D 25-Hydroxy 33.7 6.6 - 49.9 ng/mL [facility] Specimen Blood Narrative Performed At Effective 07/13/2017: Reference Range Change [facility] New: 6.6-49.9 ng/mL Previous: 13.0-47.8 ng/mL [facility] Recommended Vitamin D Target Range: 30.0-40.0 ng/mL Performing Organization Address [facility] Phone Number [address] * Herpes virus, IgG (09/21/2018 10:01 AM LIVESTOCK YARD SUPERVISOR) Herpes Virus IGG Positive [facility] Specimen Blood Narrative Performed At [facility] HSV IgG 1=POSITIVE [facility] HSV IgG 2=NEGATIVE Performing Organization Address City/[facility] Facility[facility] Phone Number [address] * Toxoplasma gondii antibody, IgG (09/21/2018 10:01 AM LIVESTOCK YARD SUPERVISOR) TOXOPLASMA GONDII IGG <3.0 <10.0 IU/mL [facility] QUANTITATIVE [facility] Specimen Blood Narrative Performed At Toxoplasma Gondii IgG Result Interpretation: [facility] </=9.9 IU/mLNormal [facility] 10-11 IU/mLEquivocal >/=12 IU/mL Positive Performing Organization Address [facility] [place] [address] [facility] * RPR (09/21/2018 10:01 AM LIVESTOCK YARD SUPERVISOR) RPR Nonreactive Nonreactive [facility] Specimen Blood Performing Organization Address City/[facility] Phone Number [address] [address] [facility] * CMV antibody, IgG (09/21/2018 10:01 AM LIVESTOCK YARD SUPERVISOR) CYTOMEGALOVIRUS, IGG Positive (A) Negative, Equivocal [facility] Specimen Blood Narrative Performed At CMV IgG Result Interpretation: [facility] </=0.8 Al Negative [facility] 0.9-1.0 Al Equivocal >/=1.1 AlPositive Performing Organization Address [facility] [place] [address] [phone] [place] [address] * FRANC (09/21/2018 10:01 AM LIVESTOCK YARD SUPERVISOR) FRANC Negative Negative [facility] Specimen Blood Narrative Performed At Test performed by IFA method. [facility] Test performed by IFA method. [facility] Performing Organization Address [facility] [place] [address] [phone] [place] [address] * Uric acid (09/21/2018 10:01 AM LIVESTOCK YARD SUPERVISOR) Uric Acid 11.7 (H) 2.6 - 7.2 mg/dL [facility] Specimen Blood Performing Organization Address City/[facility]/Zipcode Phone Number [address] [address] [facility] * Transferrin (09/21/2018 10:01 AM LIVESTOCK YARD SUPERVISOR) Transferrin 283 174 - 382 mg/dL [facility] Specimen Blood Performing Organization Address City/[facility]/Zipcode Phone Number [address] [address] [facility] * TSH (09/21/2018 10:01 AM LIVESTOCK YARD SUPERVISOR) TSH 1.73 0.35 - 4.94 uIU/mL [facility] Specimen Blood Performing Organization Address [facility] Phone Number [facility] [address] [place] [address] [address] [facility] * T4, free (09/21/2018 10:01 AM LIVESTOCK YARD SUPERVISOR) Free T4 0.92 0.70 - 1.48 ng/dL [facility] Specimen Blood Performing Organization Address [facility] Phone Number [address] [address] [phone] [place] [address] * Protein electrophoresis, serum (09/21/2018 10:01 AM LIVESTOCK YARD SUPERVISOR) Albumin Fraction 4.2 3.5 - 5.5 g/dL [facility] Alpha 1 Fraction 0.2 0.2 - 0.4 g/dL [facility] Alpha 2 Fraction 0.7 0.5 - 0.9 g/dL [facility] Beta Fraction 1.6 (H) 0.6 - 1.1 g/dL [facility] Gamma Globulin Fraction 1.4 0.7 - 1.7 g/dL [facility] Interpretation Slight beta-gamma bridging, [facility] suggesting component of mild [facility] hepatic dysfunction. No monoclonal bands detected. Pathologist: Talya Ramirez MD [facility] (electronic signature) [facility] Protein, Total 8.1 6.0 - 8.3 gm/dL [facility] Specimen Blood Performing Organization Address [facility] Phone Number [address] [address] [phone] [place] [address] * PSA (09/21/2018 10:01 AM LIVESTOCK YARD SUPERVISOR) PSA 0.5 0.0 - 4.0 ng/mL [facility] Specimen Blood Performing Organization Address City/[facility] Phone Number [address] * Prealbumin (09/21/2018 10:01 AM LIVESTOCK YARD SUPERVISOR) Prealbumin 25Comment: Specimen slightly 14 - 45 mg/dL [facility] hemolyzed [facility] Specimen Blood Performing Organization Address City/[facility] Facility[facility] Phone Number [address] * Phosphorus (09/21/2018 10:01 AM LIVESTOCK YARD SUPERVISOR) Phosphorus 3.6 2.3 - 4.7 mg/dL [facility] Specimen Blood Performing Organization Address [facility] Phone Number [address] * Beta Natriuretic Factor (BNP) (09/21/2018 10:01 AM LIVESTOCK YARD SUPERVISOR) BNP 381 (H) 0 - 100 pg/mL [facility] Specimen Blood Performing Organization Address [facility] Phone Number [address] * Magnesium (09/21/2018 10:01 AM LIVESTOCK YARD SUPERVISOR) Magnesium 1.3 (L) 1.6 - 2.6 mg/dL [facility] Specimen Blood Performing Organization Address City/[facility] Facility[facility] Phone Number [address] * Lipase (09/21/2018 10:01 AM LIVESTOCK YARD SUPERVISOR) Lipase 87 (H) 8 - 78 U/L [facility] Specimen Blood Performing Organization Address [facility] Facility[facility] Phone Number [address] * Lactate dehydrogenase (LDH) (09/21/2018 10:01 AM LIVESTOCK YARD SUPERVISOR) LDH 237 (H) 125 - 220 U/L [facility] Specimen Blood Performing Organization Address City/[facility] Facility[facility] Phone Number [place] [phone] * Iron, serum (09/21/2018 10:01 AM LIVESTOCK YARD SUPERVISOR) Iron 315.0 (H) 40.0 - 160.0 ug/dL [facility] Specimen Blood Performing Organization Address City/[facility] Facilitycode Phone Number [address] [address] [phone] [place] [address] * Hemoglobin A1c (09/21/2018 10:01 AM LIVESTOCK YARD SUPERVISOR) Hemoglobin A1C 6.3 (H) 4.3 - 6.1 % [facility] Specimen Blood Performing Organization Address [facility] Facility[facility] Phone Number [phone] [place] [address] * Gamma Glutamyl Transferase (GGT) (09/21/2018 10:01 AM LIVESTOCK YARD SUPERVISOR) GGT 115 (H) 9 - 64 U/L [facility] Specimen Blood Performing Organization Address [facility] Facility[facility] Phone Number [address] [address] [phone] [place] [address] * Ferritin (09/21/2018 10:01 AM LIVESTOCK YARD SUPERVISOR) Ferritin 655 (H) 5 - 275 ng/mL [facility] Specimen Blood Performing Organization Address City/[facility] Facility[facility] Phone Number [address] [address] [facility] * Lipid panel (FASTING) (09/21/2018 10:01 AM LIVESTOCK YARD SUPERVISOR) Triglycerides 72 mg/dL [facility] Cholesterol 140 mg/dL [facility] HDL 50 mg/dL [facility] LDL Calculated 76 mg/dL [facility] Specimen Blood Narrative Performed At Triglyceride Reference Range: [facility] Low Risk <150 [facility] [id number] High Risk 200-499 Very High Risk>=500 Cholesterol Reference Range: Low Risk <200 [id number] High Risk>240 HDL Cholesterol Reference Range: Low Risk >=60 High Risk <40 LDL Cholesterol Reference Range: Optimal<100 Near Zsuyils586-191 [id number] Tqyx306-421 Very High >=190 Performing Organization Address [facility] Phone Number [facility] [address] [place] [address] MEDICAL CENTER * ECG 12 lead (09/21/2018 9:52 AM LIVESTOCK YARD SUPERVISOR) Specimen Narrative Performed At Ventricular Rate 70 BPM GE MUSE Atrial Rate 69 BPM QRS Duration 172 ms Q-T Interval 504 ms QTC Calculation(Bazett) 544 ms R [place] -31 degrees T [place] 102 degrees Ventricular-paced rhythm Biventricular pacemaker detected Abnormal ECG No previous ECGs available Confirmed by Josué Galicia ([id number]) on 09/21/2018 3:41:41 PM Procedure Note Interface, External Ris In - 09/21/2018 3:41 PM LIVESTOCK YARD SUPERVISOR Ventricular Rate 70 BPM Atrial Rate 69 BPM QRS Duration 172 ms Q-T Interval 504 ms QTC Calculation(Bazett) 544 ms R [place] -31 degrees T [place] 102 degrees Ventricular-paced rhythm Biventricular pacemaker detected Abnormal ECG No previous ECGs available Confirmed by Josué Galicia ([id number]) on 09/21/2018 3:41:41 PM Performing Organization Address City/[facility] Phone Number GE MUSE * PT/PTT (09/21/2018 9:02 AM LIVESTOCK YARD SUPERVISOR) Protime 37.5 (H) 11.7 - 14.7 seconds [facility] INR 3.8 <=5.9 [facility] PTT 48.0 (H) 22.5 - 36.0 seconds [facility] Specimen Blood Narrative Performed At RECOMMENDED COUMADIN/WARFARIN INR THERAPY RANGES [facility] STANDARD DOSE: 2.0 - 3.0 Includes: PROPHYLAXIS for venous thrombosis, [facility] systemic embolization; TREATMENT for venous thrombosis and/or pulmonary embolus. HIGH RISK: Target INR is 2.5-3.5 for patients with mechanical heart valves. Performing Organization Address [facility] Facilitycode Phone Number [facility] [address] [place] [address] [facility] * Urinalysis w/Microscopic (09/21/2018 9:01 AM LIVESTOCK YARD SUPERVISOR) Color, UA Yellow [facility] Clarity, UA Clear [facility] Specific [place], UA 1.007 1.001 - 1.035 [facility] pH, UA 6.5 5.0 - 8.0 [facility] Protein, UA Negative Negative [facility] Glucose, UA Negative Negative [facility] Ketones, UA Negative Negative [facility] Bilirubin, UA Negative Negative [facility] Blood, UA Negative Negative [facility] Nitrite, UA Negative Negative [facility] Leukocytes, UA Negative Negative [facility] Urobilinogen, UA 0.2 0.2 - 1.0 mg/dL [facility] RBC, UA <1 /HPF [facility] WBC, UA 0 /HPF [facility] Hyaline Casts, UA 1 /LPF [facility] Specimen Source [facility] Specimen Urine Performing Organization Address City/[facility]/Zipcode Phone Number [facility] [address] [place] [address] [facility] * HLA TYPING CII (09/21/2018 8:20 AM LIVESTOCK YARD SUPERVISOR) HLA-DR AG1 4 [facility] HLA-DR AG2 15 [facility] HLA-DR AG3-1 [facility] HLA[facility]DR AG3-2 [facility] HLA-DR AG4-1 53 [facility] HLA-DR AG4-2 [facility] HLA-DR AG5-1 [facility] HLA-DR AG5-2 51 [facility] HLA-DQA1 AG 1-1 05 [facility] HLA-DQA1 AG 1-2 01 [facility] HLA-DQB1 AG 1-1 7 [facility] HLA-DQB1 AG 1-2 6 [facility] HLA-DPA1 AG 1-1 01 [facility] HLA-DPA1 AG 1-2 01 [facility] HLA-DPB1 AG 1-1 04:01 [facility] HLA-DPB1 AG 1-2 04:01 [facility] HLA-AG Notes [facility] HLA-AG Report Comments [facility] Specimen Blood Narrative Performed At Disclaimer: [facility] This test was developed and its performance characteristics determined by the [facility] Laboratory. It has not been cleared or [...] testing. Performing Organization Address City/State/Zipcode Phone Number [facility] ONE [facility] [place], [place]: [id number], [place] [address] CLIA#[id number] CAP#[id number] UNOS#[id number] * HLA TYPING CI (09/21/2018 8:20 AM LIVESTOCK YARD SUPERVISOR) HLA-A AG1 2 [facility] HLA-A AG2 3 [facility] HLA-B AG1 65 [facility] HLA-B AG2 50 [facility] HLA-C AG1 8 [facility] HLA-C AG2 6 [facility] HLA-B BW1 6 [facility] HLA-B BW2 6 [facility] HLA-AG Notes [facility] HLA-AG Report Comments [facility] Specimen Blood Narrative Performed At Disclaimer: [facility] This test was developed and its performance characteristics determined by the [facility] Laboratory. It has not been cleared or [...] testing. Performing Organization Address City/State/Zipcode Phone Number [facility] ONE Konrad Yang, : [id number], [place] [address] CLIA#[id number] CAP#[id number] UNOS#[id number] * Type and Screen, Automated (Lab Draw #1) (09/21/2018 8:19 AM LIVESTOCK YARD SUPERVISOR) ABO/RH AUTOMATED (BEAKER) O POSITIVE [facility] Ab Scrn NEGATIVE [facility] Specimen Blood Performing Organization Address City/[facility]/Zipcode Phone Number [facility] [address] [place] [address] MED[facility]ENTER * CBC with platelet count + automated diff (09/21/2018 8:19 AM LIVESTOCK YARD SUPERVISOR) WBC 4.6 3.5 - 10.5 K/L [facility] RBC 4.47 (L) 4.63 - 6.08 M/L [facility] Hemoglobin 14.7 13.7 - 17.5 GM/DL [facility] Hematocrit 41.7 40.1 - 51.0 % [facility] MCV 93.3 (H) 79.0 - 92.2 fL [facility] MCH 32.9 (H) 25.7 - 32.2 pg [facility] MCHC 35.3 32.3 - 36.5 GM/DL [facility] RDW 12.7 11.6 - 14.4 % [facility] Platelets 176 150 - 450 K/CU MM [facility] MPV 10.4 9.4 - 12.4 fL [facility] nRBC 0 0 - 0 /100 WBC [facility] % Neutros 57 % [facility] % Lymphs 25 % [facility] % Monos 11 % [facility] % Eos 5 % [facility] % Baso 1 % [facility] # Neutros 2.60 1.78 - 5.38 K/L [facility] # Lymphs 1.12 (L) 1.32 - 3.57 K/L [facility] # Monos 0.51 0.30 - 0.82 K/L [facility] # Eos 0.22 0.04 - 0.54 K/L [facility] # Baso 0.06 0.01 - 0.08 K/L [facility] Immature 1 0 - 1 % [facility] Granulocytes-Relative [facility] Specimen Blood Performing Organization Address City/[facility] Facility[facility] Phone Number [address] * Reticulocytes (09/21/2018 8:19 AM LIVESTOCK YARD SUPERVISOR) % Retic 2.0 (H) 0.5 - 1.8 % [facility] Specimen Blood Performing Organization Address City/[facility] Facilityconc Phone Number [address] * Direct [facility] (DEEPA)/Direct Lisha (09/21/2018 8:19 AM LIVESTOCK YARD SUPERVISOR) Direct [facility]-IGG NEGATIVE [facility] Direct [facility]-C3B, C3D NEGATVIE [facility] Specimen Blood Performing Organization Address City/[facility] Facilitycode Phone Number [address] * MAXIMAL VO2 CARDIOPULM TEST (MVO2) (03/28/2018 9:42 AM CDT) Narrative Performed At Performing Organization Address City/[facility] Phone Number GE RIS after 02/08/2018 Insurance Payer Benefit Subscriber ID Type Phone Address Plan / Group [employer] xxxxxxxxxxxx PPO [phone] [address] [place] [address] O
[2019-02-09 03:18] LABS: BASOPHILS # (AUTO) 0.1 (0.0-0.1); BASOPHILS % 0.7 % (0.0-1.0); EOSINOPHILS # (AUTO) 0.1 (0.0-0.4); EOSINOPHILS % 0.5 % (0.0-6.0); HEMATOCRIT 40.8 % (38.2-49.6); HEMOGLOBIN 13.5 g/dL (14.0-18.0); LYMPHOCYTES # (AUTO) 0.8 (1.0-3.2); MEAN CORPUSCULAR HGB CONC 33.1 g/dL (31-35); MEAN CORPUSCULAR VOLUME 93.8 fL (81-99); MONOCYTES # (AUTO) 0.7 (0.2-0.8); MONOCYTES % 7.2 % (4.4-11.3); NEUTROPHILS # (AUTO) 8.1 (2.1-6.9); NEUTROPHILS % 83.2 % (38.7-80.0); PLATELET COUNT 182 x10e3/uL (140-360); RED BLOOD COUNT 4.35 x10e6/uL (4.3-5.7); RED CELL DISTRIBUTION WIDTH 13.2 % (11.7-14.4)
[2019-02-09 03:24] LABS: CLARITY,URINE CLEAR (CLEAR); COLOR,URINE YELLOW (YELLOW)
[2019-02-09 03:25] LABS: BILIRUBIN,URINE 1+ (NEGATIVE); INR 1.21; KETONES,URINE NEGATIVE (NEGATIVE); LEUKOCYTE ESTERASE ,URINE 1+ (NEGATIVE); NITRITE,URINE NEGATIVE (NEGATIVE); PROTEIN,URINE DIPSTICK 2+ (NEGATIVE); PROTHROMBIN TIME 15.9 seconds (11.9-14.5); URINE UROBILINOGEN 4 mg/dL (0.2 - 1)
[2019-02-09 03:26] LABS: EPITHELIAL CELLS,URINE FEW /LPF; PARTIAL THROMBOPLASTIN TIME 34.9 seconds (23.8-35.5); RBC,URINE 0-5 /HPF (0-5)
[2019-02-09 03:33] LABS: ALANINE AMINOTRANSFERASE 12 IU/L (0-55); ALBUMIN 3.4 g/dL (3.5-5.0); ALBUMIN/GLOBULIN RATIO 0.9 (0.8-2.0); ALKALINE PHOSPHATASE 91 IU/L (40-150); ANION GAP 14.2 mmol/L (8-16); BLOOD UREA NITROGEN 17 mg/dL (7-26); BUN/CREATININE RATIO 20 (6-25); CALCIUM 9.4 mg/dL (8.4-10.2); CARBON DIOXIDE 24 mmol/L (22-29); CHLORIDE 102 mmol/L (98-107); CREATINE KINASE 42 IU/L (30-200); CREATININE, SERUM 0.84 mg/dL (0.72-1.25); EST GLOMERULAR FILTRATION RATE > 60 ML/MIN (60-); GLUCOSE 148 mg/dL (74-118); POTASSIUM 4.2 mmol/L (3.5-5.1); SODIUM 136 mmol/L (136-145)
--- NOTE | 2019-02-09 03:53 | Diagnostic Imaging Report ---
Examination: Single AP view of the chest. COMPARISON: January 24, 2019 INDICATION: Weakness DISCUSSION: Lines/tubes: Multi lead pacemaker/ICD. Lungs: Central venous congestion. Pleura: No pleural effusion or pneumothorax. Heart and mediastinum: Cardiomegaly. Bones and soft tissues: No acute bony abnormalities. IMPRESSION: 1. Cardiomegaly with central venous congestion Signed by: Dr. Chris Yates M.D. on 02/09/2019 3:50 AM
[2019-02-09] MEDS ORDERED: ACETAMINOPHEN 325 MG TAB PO ONE ×2 (04:15→04:30)
[2019-02-09] MEDS ORDERED: CEFTRIAXONE SOD 1 GM/NS 50 ML 50 ML IV ONE (04:15)
[2019-02-09 04:58] VITALS: BP 94/61
[2019-02-09] MEDS ORDERED: SODIUM CHLORIDE 0.9% 500ML 500 ML ONE (05:39)
[2019-02-09] MEDS ORDERED: SODIUM CHLORIDE 0.9% 50ML 50 ML ONE (05:44)
[2019-02-09] MEDS ORDERED: IOPAMIDOL 370 MG/ML 200 ML INFUS..BTL INJ ONE (05:44)
[2019-02-09] MEDS ORDERED: SODIUM CHLORIDE 0.9% 500ML 500 ML IV ONE (05:45)
--- NOTE | 2019-02-09 06:58 | Diagnostic Imaging Report ---
EXAMINATION: CT of the abdomen and pelvis with contrast. TECHNIQUE: Helical CT images of the abdomen and pelvis were performed from the lung bases to the lesser trochanters after the intravenous administration of 100 cc of Isovue 300 and the oral administration of none. Coronal and sagittal reformatted images were obtained.Dose modulation, iterative reconstruction, and/or weight based adjustment of the mA/kV was utilized to reduce the radiation dose to as low as reasonably achievable. COMPARISON: None. CLINICAL HISTORY:Fever, shortness of breath, recent colonoscopy DISCUSSION: ABDOMEN/PELVIS: LOWER THORAX:Cardiomegaly HEPATOBILIARY: Reflux of contrast into the liver. No focal lesions. No intra-or extrahepatic biliary ductal dilation. The gallbladder is normal. SPLEEN: No splenomegaly. PANCREAS: No focal masses or ductal dilatation. ADRENALS: No adrenal nodules. KIDNEYS/URETERS: Simple cyst in the right kidney measuring 3 cm. PELVIC ORGANS/BLADDER: The bladder is normal. PERITONEUM/RETROPERITONEUM: No free air or fluid. LYMPH NODES: No intra-abdominal, retroperitoneal, pelvic or inguinal lymphadenopathy. VESSELS: Vascular calcifications. GI TRACT: Colonic diverticulosis without inflammatory change. BONES AND SOFT TISSUE: No bony destructive lesions. No soft tissue abnormalities. IMPRESSION: No acute CT finding. No perforation. Colonic diverticulosis without inflammatory change. Signed by: Dr. Chris Yates M.D. on 02/09/2019 6:55 AM
== END 2019-02-09 07:23 | disposition home or self-care (01) ==
LOC: ER 02:54
DX: R50.9 Fever, unspecified (principal); R53.1 Weakness; N30.90 Cystitis, unspecified without hematuria; K57.90 Diverticulosis of intestine, part unspecified, without perforation or abscess without bleeding; I51.7 Cardiomegaly
CPT/HCPCS: 36415; 71045; 74177; 80053; 81001; 82550; 82553; 83518; 83605; 83880; 84484; 85025; 85610; 85730; 87070; 87400; 93005; 99284; J0696; J7040; Q9967